=== PATIENT | male | born 1955 | race Caucasian/White ===

== ENCOUNTER 2018-09-10 22:16 | Observation (INO) | payer OTHER ==
[~2018-09-10] VITALS: Ht 177.8 cm; Wt 90.3 kg
[2018-09-10] MEDS ORDERED: VANCOMYCIN 1GM/NS 250 ML 250 ML IV STA (22:28)
[2018-09-10] MEDS ORDERED: LEVOFLOXACIN 750MG/D5W 150ML 150 ML IV STA (22:28)
[2018-09-10] MEDS ORDERED: ONDANSETRON HCL INJ 2 MG/ML VIAL IV STA (22:44)
[2018-09-10] MEDS ORDERED: MORPHINE SULFATE 2 MG/ML SYR IV STA ×2 (22:44→23:24)
--- NOTE | 2018-09-10 22:53 | Diagnostic Imaging Report ---
FINGER RT - HOPD Comparison: None Clinical history: Cut on the right finger Findings: Soft tissue swelling without radiopaque foreign body. Mild MCP and PIP degenerative changes. No acute fracture. Impression: No acute bony abnormality Signed by: Dr Marisela Garcia MD on 09/10/2018 10:49 PM
[2018-09-10] MEDS ORDERED: VANCOMYCIN 1GM/NS 250 ML 250 ML IV SCH (23:15)
[2018-09-10] MEDS ORDERED: LEVOFLOXACIN 500MG/D5W 100ML 100 ML IV SCH (23:15)
--- OUTSIDE RECORDS SUMMARY | 2018-09-11 00:53 | XMS REPORT ---
Author Author [facility] Address Unknown Phone Unavailable Care Team Providers Care Computer Applications Developer Name Role Phone ELADIO MARIN Unavailable Unavailable Problems This patient has no known problems. Allergies, Adverse Reactions, Alerts This patient has no known allergies or adverse reactions. Medications This patient has no known medications. Results Test Description Test Time Test Comments Text Results Atomic Results Result Comments FINGER RT - HOPD 2018-09-10 22:48:00 [place] [address] Patient Name: ANABEL PRESCOTT MR #: [id number] : 1955 Age/Sex: 63/M Req #: [id number] Adm Physician: Ordered by: ELADIO MARIN MD Report #: [id number] Location: [facility] Room/Bed: Procedure: [id number] HOPD/FINGER RT - HOPD Exam Date: 09/10/18 Exam Time: 2234 REPORT STATUS: Signed FINGER RT - HOPD Comparison: None Clinical history: Cut on the right finger Findings: Soft tissue swelling without radiopaque foreign body. Mild MCP and PIP degenerative changes. No acute fracture. Impression: No acute bony abnormality Signed by: Dr Alex Garcia MD on 09/10/2018 10:49 PM Dictated By: ALEX GARCIA MD [id number] Transcribed By: LUIS FELIPE on 09/10/182248 COPY TO: ELADIO MARIN MD
[2018-09-11 01:01] VITALS: BP 160/102
[2018-09-11] MEDS ORDERED: SODIUM CHLORIDE 0.9% 250ML 250 ML ONE ×2 (01:06→23:05)
[2018-09-11 01:42] VITALS: BP 160/102
[2018-09-11] MEDS ORDERED: TYLENOL WITH C1 EACH PO (02:06)
[2018-09-11] MEDS ORDERED: WELCHOL625 MG PO (02:06)
[2018-09-11] MEDS ORDERED: METHOCARBAMOL750 MG PO (02:06)
[2018-09-11] MEDS ORDERED: PROVENTIL HFA6.7 GM INH (02:06)
[2018-09-11] MEDS ORDERED: ZOLPIDEM TARTRAT5 MG PO (02:10)
[2018-09-11] MEDS: MORPHINE SULFATE 2 MG/ML SYR IV PRN ×2 (03:45→08:42)
[2018-09-11 05:11] VITALS: BP 125/75
[2018-09-11 05:14] LABS: BASOPHILS # (AUTO) 0.1 (0.0-0.1); BASOPHILS % 0.5 % (0.0-1.0); EOSINOPHILS # (AUTO) 0.5 (0.0-0.4); EOSINOPHILS % 4.7 % (0.0-6.0); HEMATOCRIT 41.1 % (38.2-49.6); HEMOGLOBIN 13.6 g/dL (14.0-18.0); LYMPHOCYTES # (AUTO) 1.5 (1.0-3.2); LYMPHOCYTES % 15.4 % (18.0-39.1); MEAN CORPUSCULAR HEMOGLOBIN 31.9 pg (28-32); MEAN CORPUSCULAR HGB CONC 33.1 g/dL (31-35); MEAN CORPUSCULAR VOLUME 96.5 fL (81-99); MONOCYTES # (AUTO) 0.9 (0.2-0.8); MONOCYTES % 9.3 % (4.4-11.3); NEUTROPHILS # (AUTO) 6.7 (2.1-6.9); NEUTROPHILS % 69.7 % (38.7-80.0); PLATELET COUNT 231 x10e3/uL (140-360); RED BLOOD COUNT 4.26 x10e6/uL (4.3-5.7); RED CELL DISTRIBUTION WIDTH 13.1 % (11.7-14.4)
[2018-09-11 05:35] LABS: ANION GAP 12.6 mmol/L (8-16); BLOOD UREA NITROGEN 15 mg/dL (7-26); BUN/CREATININE RATIO 19 (6-25); CALCIUM 8.3 mg/dL (8.4-10.2); CARBON DIOXIDE 24 mmol/L (22-29); CHLORIDE 103 mmol/L (98-107); CREATININE, SERUM 0.81 mg/dL (0.72-1.25); EST GLOMERULAR FILTRATION RATE > 60 ML/MIN (60-); GLUCOSE 118 mg/dL (74-118); POTASSIUM 3.6 mmol/L (3.5-5.1); SODIUM 136 mmol/L (136-145)
--- NOTE | 2018-09-11 05:51 | Diagnostic Imaging Report ---
CHEST SINGLE (PORTABLE), 09/11/2018 7:00 AM Technique: CHEST SINGLE (PORTABLE) Comparison: None available. Clinical history: Preoperative for finger cut Findings: Unremarkable portable appearance of the heart, mediastinum, lungs and pleural spaces. Impression: 1. Lines/Tubes: None 2. No acute abnormality. Signed by: Dr Marisela Garcia MD on 09/11/2018 5:48 AM
[2018-09-11 08:18] VITALS: BP 127/71
[2018-09-11] MEDS: ONDANSETRON HCL INJ 2 MG/ML VIAL IV PRN (08:42)
[2018-09-11 11:56] VITALS: BP 129/80
[2018-09-11] MEDS: VANCOMYCIN 1GM/NS 250 ML 250 ML IV SCH (12:49)
[2018-09-11] MEDS ORDERED: IBUPROFEN 600 MG TAB PO PRN (13:15)
[2018-09-11] MEDS ORDERED: ZOLPIDEM TARTRATE 5 MG TAB PO PRN (13:15)
[2018-09-11] MEDS ORDERED: ZOLPIDEM TARTRATE 10 MG TAB PO PRN (14:00)
[2018-09-11] MEDS ORDERED: BUPIVACAINE HCL 0.5% INJ 30 ML VIAL INJ ONE (14:05)
[2018-09-11] MEDS ORDERED: BACITRACIN 50,000 UNIT VIAL ONE (14:05)
--- NOTE | 2018-09-11 14:20 | History and Physical ---
CHIEF COMPLAINT: Swelling and redness of the finger after laceration. HISTORY OF PRESENT ILLNESS: The patient is a 63-year-old man. Three days ago he cut his finger with a pocketknife. It subsequently started to swell and become red. He had subsequent pain and [facility] In the [facility], he received the tetanus booster as well as some antibiotics. He was admitted for possible incision and drainage. PAST MEDICAL HISTORY 1. The patient specifically denies any history of diabetes. 2. History of hyperlipidemia. 3. 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 PAST SURGICAL HISTORY: None. ALLERGIES: PENICILLINS. SOCIAL HISTORY: The patient never smoked. REVIEW OF SYSTEMS: He does not report any fevers. He does note some headache. He has no sore throat or neck pain. He is not having any swollen glands. Cardiac exam reveals regular rate and rhythm with normal S1 and S2. He does not complain of any chest pain. He has no difficulty breathing or cough. He is not having any abdominal pain. He has no leg swelling. PHYSICAL EXAMINATION VITALS: The patient is afebrile. The vital signs are stable, although he did have a temperature of 99.8 last night. HEENT: Examination shows no facial swelling or erythema. The nasal mucosa is normal. The oropharynx is normal. LYMPHATIC: No submandibular, cervical or supraclavicular adenopathy. CARDIOVASCULAR: Regular rate and rhythm with normal S1 and S2. There are no murmurs or rubs. RESPIRATORY: Auscultation of the lungs reveals clear breath sounds bilaterally. There is no wheezing. ABDOMEN: Soft. Nontender. There is no rebound or guarding. EXTREMITIES: Swelling over the dorsal aspect of the 3rd digit on the right hand. NEUROLOGIC: No focal deficits. LABORATORY DATA: The hemoglobin is 13.6, and white blood cell count is 9.6. Platelet count is 231. Electrolytes are within normal limits. IMPRESSION 1. Post-traumatic cellulitis and early abscess formation on the dorsal aspect of the 3rd digit of the right hand with secondary sepsis present on admission. 2. Hyperlipidemia. PLAN 1. Continue vancomycin and Levaquin. 2. Plastic surgery to see patient for possible incision and drainage. 3. Pain control. Job#: [id number]
[2018-09-11] MEDS ORDERED: LIDOCAINE HCL 1% LOCAL INJ 20 ML VIAL ONE (14:45)
--- NOTE | 2018-09-11 14:56 | Consultation ---
DATE OF CONSULTATION: September 11, 2018 This was an emergency consult. The patient was admitted through the emergency room around midnight last night. HISTORY OF PRESENT ILLNESS: The patient is a 63-year-old, [id number] male who states he was using a serrated-type knife approximately 2 days ago. He sustained what he believed was a superficial laceration of the right long finger at the dorsal aspect at the DIP joint. 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 Over the next 24 to 48 hours, the finger became swollen, painful and quite red, and he noticed discharge from the wound. He came to the emergency room late last night where he was admitted and started on intravenous antibiotics, and emergency consult is now requested. PAST MEDICAL HISTORY: Negative for diabetes mellitus. PAST SURGICAL HISTORY: Noncontributory. PHYSICAL EXAMINATION: Vital signs: His temperature is 99.8 and BP 125/75. On pertinent physical exam, the right long finger exhibits fusiform swelling and erythema along the entire ray. There is an open wound on the dorsal aspect of the DIP joint, which is draining purulent exudate. There are erythema and swelling extending to the volar surface. Palpation of the volar flexor tendon sheath is without tenderness, and there is no pain with passive range of motion. IMAGING: Radiographs of the long finger show soft-tissue swelling, but no evidence of osteomyelitis and no radiopaque foreign body. IMPRESSION: Extensor tenosynovitis, possible involvement of the joint. PLAN: The patient will be taken to the OR urgently where exploration of the injured area will be performed and irrigation of the tendon sheath will be done. Cultures will be obtained. ADDENDUM: At the time of this consult, no H and P was on the chart. History was taken by the patient. Job#: [id number]
[2018-09-11] MEDS ORDERED: MUPIROCIN 2% OINT 22 GM TUBE ONE (14:59)
[2018-09-11] MEDS: HYDROCODONE/APAP 7.5MG-325MG 1 EA TAB PO PRN (15:44)
[2018-09-11] MEDS ORDERED: HYDROCODONE/APAP 7.5MG-325MG 1 EA TAB ONE (15:45)
[2018-09-11] MEDS ORDERED: LIDOCAINE HCL 2% LOCAL INJ 5 ML SDV VIAL INJ ONE (16:19)
[2018-09-11] MEDS ORDERED: PROPOFOL IV EMULSION 10 MG/ML 20 ML VIAL ONE (16:19)
[2018-09-11 20:37] VITALS: BP 125/68
[2018-09-11] MEDS ORDERED: MIDAZOLAM HCL 2 MG/2 ML VIAL ONE (21:09)
[2018-09-11] MEDS ORDERED: FENTANYL CITRATE/PF 100MCG/2 ML INJ ONE (21:09)
[2018-09-11] MEDS ORDERED: LEVOFLOXACIN 500MG/D5W 100ML 100 ML IV SCH (23:00)
[2018-09-12] MEDS: VANCOMYCIN 1GM/NS 250 ML 250 ML IV SCH ×2 (00:20→12:20)
[2018-09-12 00:22] VITALS: BP 120/56
[2018-09-12 06:35] VITALS: BP 110/56
[2018-09-12 07:55] VITALS: BP 110/56
[2018-09-12] MEDS: HYDROCODONE/APAP 7.5MG-325MG 1 EA TAB PO PRN (07:55)
[2018-09-12 09:10] VITALS: BP 112/66
[2018-09-12] MEDS ORDERED: HYDROMORPHONE 2MG/ML 2 MG/ML ML IV ONE (11:30)
[2018-09-12] MEDS: ONDANSETRON HCL INJ 2 MG/ML VIAL IV PRN (12:20)
--- NOTE | 2018-09-12 14:35 | Operative Report ---
DATE OF PROCEDURE: September 11, 2018 PREOPERATIVE DIAGNOSES: Penetrating injury right long finger distal interphalangeal joint, presumed extensor tenosynovitis, possible septic arthritis of joint. POSTOPERATIVE DIAGNOSES 1. Septic arthritis of the distal interphalangeal joint. 2. Laceration of extensor tendon, right long finger. PROCEDURES PERFORMED 1. Exploration of penetrating injury, right long finger distal interphalangeal joint. 2. Arthrotomy drainage of distal interphalangeal joint. ANESTHESIA: MAC/local. HISTORY: The patient is a 63-year-old male who was admitted late last night after sustaining a penetrating injury to the right long finger 2 to 3 days prior. The finger has become markedly swollen and erythematous and there is purulent exudate draining from the wound over the DIP joint. The risks, benefits, and alternatives of treatment were discussed with the patient and he is prepared to undergo the procedures outlined. PROCEDURE: The patient was marked preoperatively in the holding area. He is brought to the operating theater and after the induction of adequate IV sedation, he is prepped and draped in a supine position. A time-out is performed. The right long finger has a digital block placed using a 50:50 mixture of 1% Xylocaine plain and 0.5% Marcaine plain. A total of 5 mL is used around the base of the finger. The finger is then elevated for 3 to 4 minutes and then a 1/4-inch Priyanka drain is placed around the base of the long finger and held in place with a hemostat. A curvilinear incision is then marked out over the DIP joint. The incision is made through the skin and subcutaneous tissues. Venous tributaries are controlled with bipolar cautery. The purulence is then cultured, both aerobically and anaerobically. The extensor tendon mechanism is clearly divided from the injury and this is dissected off the periosteal tissues away from the DIP joint. The DIP joint is placed on traction and the purulence is noted. The wound is irrigated with antibiotic containing solution until the effluent is clear. At this point, 1/4-inch packing is placed within the DIP joint. No attempt is made to repair the extensor tendon at this point because of the presence of the infection. The edges of the soft tissues are then sharply debrided and closed over the packing with 5-0 nylon suture in an interrupted fashion. Bactroban ointment and Xeroform gauze are placed directly over the wound. A sterile dressing is applied and a foam aluminum splint is added to maintain the joint in extension and held in place with Coban dressing. The tourniquet is removed from the base of the finger. The finger pinks up nicely and the patient is returned to recovery room in satisfactory condition. Job#: [id number] SUB
--- NOTE | 2018-09-12 17:35 | Discharge Summary ---
DISCHARGE DIAGNOSES 1. Posttraumatic cellulitis and early abscess formation of the dorsal aspect of the 3rd digit of the right hand. 2. Hyperlipidemia. CONSULTING PHYSICIAN: Dr. Jonny Colorado. PROCEDURE: Incision and drainage of abscess. HISTORY OF PRESENT ILLNESS: The patient is a 63-year-old man. He lacerated his finger several days prior to admission. It became subsequently more painful and red. He developed a small area of fluctuance. He went to the emergency department and was admitted. HOSPITAL COURSE: The patient was admitted. He was started on IV antibiotics. He was seen in consultation by plastic surgery. He had an incision and drainage done. He tolerated the procedure well and felt better. He was eager to go home after the procedure. DISPOSITION: Patient will be discharged home with Augmentin. He will follow up with Dr. Colorado in 7 to 10 days. JOSE BENJAMIN MD Job#: [id number] PKU
== END 2018-09-12 13:37 | disposition home or self-care (01) ==
LOC: FSED 22:16 → ERHOLD 23:17 → INTOOBSV 23:17 → MED/SURG2 09-11 00:57
PROVIDERS: ADMIT Internal Medicine; ATTEND Internal Medicine
DX: S66.322A Laceration of extensor muscle, fascia and tendon of right middle finger at wrist and hand level, initial encounter (principal); M00.9 Pyogenic arthritis, unspecified; E78.5 Hyperlipidemia, unspecified; L03.113 Cellulitis of right upper limb; W26.0XXA Contact with knife, initial encounter; Y93.89 Activity, other specified; Z88.0 Allergy status to penicillin; Z88.8 Allergy status to other drugs, medicaments and biological substances; J45.909 Unspecified asthma, uncomplicated; L02.511 Cutaneous abscess of right hand
CPT/HCPCS: 26080; 36415; 71045; 73140; 80048; 85025; 85730; 87040; 87071; 87075; 87205; 93005; 99284; G0378 ×3; J1170; J1956; J2001 ×2; J2250; J2270; J2405 ×2; J2704; J3370 ×2; J7050

== ENCOUNTER 2020-03-20 17:02 | Emergency (ER) | payer MEDICARE, OTHER ==
[~2020-03-20] VITALS: Ht 177.8 cm; Wt 91.0 kg
[~2020-03-20 17:02] MED LIST: METHOCARBAMOL750 MG PO; PROVENTIL HFA6.7 GM INH; TYLENOL WITH C1 EACH PO; WELCHOL625 MG PO; ZOLPIDEM TARTRAT5 MG PO
[2020-03-20] MEDS ORDERED: LIDOCAINE HCL 2% LOCAL 20 ML VIAL ONE (18:02)
[2020-03-20] MEDS ORDERED: TETANUS/DIPHTHERIA TOX ADULT 0.5 ML SYR IM ONE (18:30)
[2020-03-20] MEDS ORDERED: TETANUS/DIPHTHERIA TOX ADULT 0.5 ML SYR ONE (18:39)
--- NOTE | 2020-03-20 18:55 | Diagnostic Imaging Report ---
Exam: Left finger, 3 views History: Laceration to tip of left second digit Comparison: None. Findings: There is normal bone mineralization. Deformity in the ulnar aspect of the distal portion of the second finger tuft, with adjacent 2 mm bony fragment, likely represents a small fracture. Other bony structures are intact. Joint spaces preserved. No abnormal soft tissue calcification. Soft tissue defect in the distal portion of the second finger, consistent with known laceration. Associated soft tissue swelling. Impression: 1. Small acute fracture in the ulnar aspect of the distal portion of the second finger tuft with adjacent 2 mm bony fragment. Associated soft tissue defect in the distal portion of the second finger. Signed by: Dr. Shun Beltran M.D. on 03/20/2020 6:51 PM
[2020-03-20] MEDS ORDERED: CEFAZOLIN SOD 1 GM VIAL IM STA (19:03)
[2020-03-20] MEDS ORDERED: TRIMETHOPRIM/SULFAMETHOXAZOLE 160-800 MG TAB PO STA (19:03)
--- NOTE | 2020-03-20 20:12 | Emergency Department Note ---
History of Present Illnes History of Present Illness Chief Complaint: table saw Laceration left index finger History of Present Illness This is a 64 year old male . Historian: Patient Arrival Mode: Car History limited by: condition of the patient (stable) Seo Strategist Required: No Location: left index finger tip Quality: sharp Radiation: Reports non-radiation Severity: moderate Onset quality: sudden Duration (how long): hour(s) (2) Timing of current episode: constant Progression: unchanged Chronicity: new Context: Reports trauma/injury; Denies recent illness, Denies recent surgery, Denies recent immobilization, Denies recent travel, Denies new medications Relieving factors: rest Exacerbating factors: movement Associated symptoms: Reports denies other symptoms Treatments prior to arrival: none Past Medical/Family History Physician Review I have reviewed the patient's past medical and family history. Any updates have been documented here. Past Medical History Recent Fever: No Clinical Suspicion of Infectio: No New/Unexplained Change in Ment: No Past Medical History: Asthma, Hyperlipedemia Other Medical History: ARTHRITIS Past Surgical History: Hernia Repair Social History Smoking Cessation: Never Smoker Counseling Performed: No Alcohol Use: Social Any Illegal Drug Use: No TB Exposure/Symptoms: No Physically hurt or threatened: No Family History Family history of heart diseas: No Other Last Tetanus: 2018 Any Pre-Existing Lines (PICC,: No Is patient up to date on immun: Yes Last Flu: UTD Last Pneumovax: UTD Review of Systems Review of Systems Constitutional: Reports no symptoms EENTM: Reports no symptoms Cardiovascular: Reports no symptoms Respiratory: Reports no symptoms Gastrointestinal: Reports no symptoms Genitourinary: Reports no symptoms Musculoskeletal: Reports as per HPI Integumentary: Reports as per HPI Neurological: Reports no symptoms Psychological: Reports no symptoms Endocrine: Reports no symptoms Hematological/Lymphatic: Reports no symptoms Review of other systems: All other systems negative Physical Exam Related Data Allergies: Coded Allergies: Penicillins (Verified Allergy, Unknown, 09/10/18) A CHILD Uncoded Allergies: AVALAIR (Allergy, Unknown, 09/10/18) A CHILD QUALUDE (Allergy, Unknown, 09/10/18) A CHILD Triage Vital Signs Vital Signs Date Time Temp Pulse Resp B/P (MAP) Pulse Ox O2 Delivery O2 Flow Rate FiO2 03/20/20 17:30 98.9 70 16 151/84 99 Vital signs reviewed: Yes Physical Exam CONSTITUTIONAL Constitutional: Present well-developed, Present well-nourished HENT HENT: Present normocephalic, Present atraumatic, Present oropharynx clear/moist, Present nose normal HENT L/R: Present left ext ear normal, Present right ext ear normal EYES Eyes: Reports PERRL, Reports conjunctivae normal NECK Neck: Present ROM normal PULMONARY Pulmonary: Present effort normal, Present breath sounds normal CARDIOVASCULAR Cardiovascular: Present regular rhythm, Present heart sounds normal, Present capillary refill normal, Present normal rate GASTROINTESTINAL Abdominal: Present soft, Present nontender, Present bowel sounds normal GENITOURINARY Genitourinary: Present exam deferred SKIN Skin: Present warm, Present dry, Present other (left index finger 1.5 cm along mid long axis through nail bed// +nvi) MUSCULOSKELETAL Musculoskeletal: Present ROM normal NEUROLOGICAL Neurological: Present alert, Present oriented x 3, Present no gross motor or sensory deficits PSYCHOLOGICAL Psychological: Present mood/affect normal, Present judgement normal Assessment & Plan Medical Decision Making MDM f/u with hand surgeon tomorrow morning ( dr ruelas- [facility]- [phone] lizy cruz- hand surgeon call [phone]), bactrim, ibuprofen, tramadol Reassessment Reassessment wound was irrigated well. soaked in betadine solution for 30 mins and hydrogen peroxide for 10 minutes. . xeroform ans dressing was placed on wound. spoke to dr cruz - hand surgeon- at 2005hrs approx and he said he would f/u with pt tomorrow. spoke to dr ruelas- hand surgeon [facility]- at 2010hrs and he said for pt to follow up with him tomorrow. pt said he will f/u with [facility] hand surgeon Assessment & Plan Final Impression: (1) Open fracture of tuft of distal phalanx of finger Depart Disposition: HOME, SELF-CARE Last Vital Signs Date Time Temp Pulse Resp B/P (MAP) Pulse Ox O2 Delivery O2 Flow Rate FiO2 03/20/20 17:30 98.9 70 16 151/84 99 Home Meds Active Scripts Sulfamethoxazole/Trimethoprim (BACTRIM DS TABLET) 1 Each Tablet, 1 TAB PO Q12H for 14 Days, #28 TAB Prov:MICHELLE KERN 03/20/20 Tramadol Hcl (ULTRAM) 50 Mg Tablet, 50 MG PO Q4HR PRN for MODERATE PAIN (4-6), #30 TAB take after ibuprofen to control pain if need be Prov:KERNJOANNEYola GUEVARA 03/20/20 Ibuprofen (IBUPROFEN) 600 Mg Tablet, 800 MG PO Q6H PRN for MODERATE PAIN (4-6), #40 TAB Prov:ERLINDAPHNEMICHELLEQI GUEVARA 03/20/20 Reported Medications Zolpidem Tartrate (ZOLPIDEM TARTRATE) 5 Mg Tablet, 5 MG PO HS PRN for INSOMNIA, #30 TAB 09/11/18 Albuterol Sulfate (PROVENTIL HFA) 6.7 Gm Hfa.aer.ad, 1 DOSE INH PRN 09/11/18 Colesevelam Hcl (WELCHOL) 625 Mg Tablet, 625 MG PO AC, #30 TAB Take 2 tabs with meals 09/11/18 Acetaminophen With Codeine (TYLENOL WITH CODEINE #3 TABLET) 1 Each Tablet, 300 MG PO Q6H PRN for PAIN, TAB 09/11/18 Methocarbamol (METHOCARBAMOL) 750 Mg Tablet, 750 MG PO Q6H, #30 TAB 09/11/18 Medications in the ED Lidocaine HCl 400 mg STK-MED ONCE .ROUTE ; Start 03/20/20 at 18:02; Stop 03/20/20 at 17:59; Status DC Tetanus/ Diphtheria Toxoids 0.5 ml ONCE ONCE IM Last administered on 03/20/20at 18:34; Admin Dose 0.5 ML; Start 03/20/20 at 18:30; Stop 03/20/20 at 18:31; Status DC Tetanus/ Diphtheria Toxoids 0.5 ml STK-MED ONCE .ROUTE ; Start 03/20/20 at 18:39; Stop 03/20/20 at 18:34; Status DC Cefazolin Sodium 1 gm ONCE STAT IM Last administered on 03/20/20at 19:30; Admin Dose 1 GM; Start 03/20/20 at 19:03; Stop 03/20/20 at 19:47; Status DC Trimethoprim/ Sulfamethoxazole 1 ea ONCE STAT PO Last administered on 03/20/20at 19:30; Admin Dose 1 EA; Start 03/20/20 at 19:03; Stop 03/20/20 at 19:44; Status DC MICHELLE KERN Mar 20, 2020 20:12
[2020-03-20] MEDS ORDERED: ULTRAM50 MG PO (20:29)
[2020-03-20] MEDS ORDERED: IBUPROFEN600 MG PO (20:29)
[2020-03-20] MEDS ORDERED: BACTRIM DS TAB1 EACH PO (20:29)
== END 2020-03-20 20:42 | disposition home or self-care (01) ==
LOC: FSED 17:02
DX: S62.631B Displaced fracture of distal phalanx of left index finger, initial encounter for open fracture (principal); W29.3XXA Contact with powered garden and outdoor hand tools and machinery, initial encounter; Y92.008 Other place in unspecified non-institutional (private) residence as the place of occurrence of the external cause; E78.5 Hyperlipidemia, unspecified; J45.909 Unspecified asthma, uncomplicated
CPT/HCPCS: 73140; 90471; 90714; 96372; 99283; J0690; J2001

== ENCOUNTER 2020-10-03 13:40 | Emergency (ER) | payer MEDICARE ==
[~2020-10-03] VITALS: Ht 177.8 cm; Wt 90.7 kg
[~2020-10-03 13:40] MED LIST changes: +BACTRIM DS TAB1 EACH PO; +IBUPROFEN600 MG PO; +ULTRAM50 MG PO
[2020-10-03 15:06] VITALS: BP 110/68
== END 2020-10-03 15:08 | disposition home or self-care (01) ==
LOC: ER 14:32
DX: U07.1 COVID-19 (principal); J45.909 Unspecified asthma, uncomplicated; E78.5 Hyperlipidemia, unspecified; Z88.0 Allergy status to penicillin; Z88.8 Allergy status to other drugs, medicaments and biological substances
CPT/HCPCS: 71045; 99283

== ENCOUNTER 2020-10-04 16:31 | Inpatient (IN) | payer MEDICARE ==
[~2020-10-04] VITALS: Ht 177.8 cm; Wt 82.6 kg
[~2020-10-04 16:31] MED LIST changes: +ETOMIDATE 2 MG/ML 10 ML INJ IV ONE; +MIDAZOLAM HCL 2 MG/2 ML VIAL ONE; +SUCCINYLCHOLINE CHLORIDE 20 MG/ML 10ML VIAL ONE; +VECURONIUM BROMIDE FOR INJ 20 MG VIAL ONE; +WATER STERILE 10 ML VIAL ONE
[2020-10-04] MEDS ORDERED: AZITHROMYCIN 500MG/NS 250 ML 250 ML IV ONE (18:45)
[2020-10-04] MEDS ORDERED: DEXAMETHASONE SOD PHOS INJ 4 MG/ML VIAL IV ONE (19:20)
[2020-10-04 19:30] LABS: CLARITY,URINE SL CLOUDY (CLEAR); COLOR,URINE STRAW (YELLOW); KETONES,URINE 2+ (NEGATIVE); LEUKOCYTE ESTERASE ,URINE NEGATIVE (NEGATIVE); NITRITE,URINE NEGATIVE (NEGATIVE); PROTEIN,URINE DIPSTICK 1+ (NEGATIVE); URINE UROBILINOGEN 0.2 mg/dL (0.2 - 1)
[2020-10-04 19:39] LABS: BASOPHILS % 0.1 % (0.0-1.0); HEMATOCRIT 36.7 % (38.2-49.6); HEMOGLOBIN 12.4 g/dL (14.0-18.0); LYMPHOCYTES # (AUTO) 0.7 (1.0-3.2); LYMPHOCYTES % 8.9 % (18.0-39.1); MEAN CORPUSCULAR HEMOGLOBIN 31.4 pg (28-32); MEAN CORPUSCULAR HGB CONC 33.8 g/dL (31-35); MEAN CORPUSCULAR VOLUME 92.9 fL (81-99); MONOCYTES # (AUTO) 0.4 (0.2-0.8); MONOCYTES % 4.9 % (4.4-11.3); NEUTROPHILS # (AUTO) 6.3 (2.1-6.9); NEUTROPHILS % 85.4 % (38.7-80.0); PLATELET COUNT 212 x10e3/uL (140-360); RED BLOOD COUNT 3.95 x10e6/uL (4.3-5.7); RED CELL DISTRIBUTION WIDTH 13.8 % (11.7-14.4)
[2020-10-04 19:43] LABS: BACTERIA,URINE RARE /HPF; EPITHELIAL CELLS,URINE RARE /LPF; MUCUS,URINE FEW (RARE); RBC,URINE 0-5 /HPF (0-5); WBC,URINE (MAN) 0-5 /HPF (0-5)
[2020-10-04] MEDS ORDERED: CEFTRIAXONE SOD 1 GM/NS 50 ML 50 ML IV ONE (19:45)
[2020-10-04 19:56] LABS: ALANINE AMINOTRANSFERASE 20 IU/L (0-55); ALBUMIN 2.8 g/dL (3.5-5.0); ALBUMIN/GLOBULIN RATIO 0.7 (0.8-2.0); ALKALINE PHOSPHATASE 58 IU/L (40-150); ANION GAP 16.5 mmol/L (8-16); BLOOD UREA NITROGEN 16 mg/dL (7-26); BUN/CREATININE RATIO 24 (6-25); CALCIUM 8.3 mg/dL (8.4-10.2); CARBON DIOXIDE 23 mmol/L (22-29); CHLORIDE 101 mmol/L (98-107); CREATININE, SERUM 0.67 mg/dL (0.72-1.25); EST GLOMERULAR FILTRATION RATE > 60 ML/MIN (60-); GLUCOSE 107 mg/dL (74-118); POTASSIUM 3.5 mmol/L (3.5-5.1); SODIUM 137 mmol/L (136-145)
[2020-10-04] MEDS ORDERED: ACETAMINOPHEN 325 MG TAB ONE (19:58)
[2020-10-04] MEDS ORDERED: ACETAMINOPHEN 325 MG TAB PO ONE (20:00)
[2020-10-04] MEDS ORDERED: ONDANSETRON HCL INJ 2MG/ML 2ML 2 MG/ML VIAL IV PRN ×2 (20:30→21:15)
[2020-10-04] MEDS ORDERED: SODIUM CHLORIDE 0.9% 1000ML 1,000 ML IV ONE (20:30)
[2020-10-04] MEDS ORDERED: ACETAMINOPHEN 325 MG TAB PO PRN (21:15)
[2020-10-04] MEDS ORDERED: TRAMADOL HCL 50 MG TAB PO PRN (21:15)
[2020-10-04] MEDS: ASCORBIC ACID 500 MG TAB PO SCH (22:36)
[2020-10-04] MEDS: ENOXAPARIN SOD INJ 40 MG/0.4 ML SYR SC SCH (22:36)
[2020-10-05] MEDS: ALBUTEROL SULFATE HFA 8GM INHALATION AEROSOL INH SCH ×3 (00:28→21:21)
[2020-10-05] MEDS: BENZONATATE 100 MG CAP PO PRN (00:29)
[2020-10-05] MEDS ORDERED: BENZONATATE 100 MG CAP ONE (00:30)
[2020-10-05] MEDS: ACETAMINOPHEN 325 MG TAB PO PRN ×2 (02:10→15:28)
[2020-10-05] MEDS ORDERED: ROSUVASTATIN CA20 MG PO (05:09)
[2020-10-05] MEDS ORDERED: MONTELUKAST SOD10 MG PO (05:09)
[2020-10-05] MEDS ORDERED: SYMBICORT 16010.2 GM (05:09)
[2020-10-05] MEDS: ASCORBIC ACID 500 MG TAB PO SCH ×2 (08:42→17:35)
[2020-10-05] MEDS: ENOXAPARIN SOD INJ 40 MG/0.4 ML SYR SC SCH ×2 (08:42→17:35)
[2020-10-05] MEDS: ZINC SULFATE 220 MG CAP PO SCH (08:42)
[2020-10-05] MEDS ORDERED: AZITHROMYCIN 500MG/NS 250 ML 250 ML IV SCH (09:00)
[2020-10-05] MEDS ORDERED: CEFTRIAXONE SOD 2 GM/NS 100 ML 100 ML IV SCH (09:00)
[2020-10-05 09:14] LABS: BASOPHILS % 0.2 % (0.0-1.0); HEMATOCRIT 36.8 % (38.2-49.6); HEMOGLOBIN 12.1 g/dL (14.0-18.0); LYMPHOCYTES # (AUTO) 0.5 (1.0-3.2); LYMPHOCYTES % 7.4 % (18.0-39.1); MEAN CORPUSCULAR HEMOGLOBIN 30.9 pg (28-32); MEAN CORPUSCULAR HGB CONC 32.9 g/dL (31-35); MEAN CORPUSCULAR VOLUME 94.1 fL (81-99); MONOCYTES # (AUTO) 0.2 (0.2-0.8); MONOCYTES % 3.5 % (4.4-11.3); NEUTROPHILS # (AUTO) 5.6 (2.1-6.9); NEUTROPHILS % 88.3 % (38.7-80.0); PLATELET COUNT 218 x10e3/uL (140-360); RED BLOOD COUNT 3.91 x10e6/uL (4.3-5.7); RED CELL DISTRIBUTION WIDTH 13.9 % (11.7-14.4)
[2020-10-05 09:33] LABS: ALANINE AMINOTRANSFERASE 21 IU/L (0-55); ALBUMIN 2.6 g/dL (3.5-5.0); ALBUMIN/GLOBULIN RATIO 0.7 (0.8-2.0); ALKALINE PHOSPHATASE 69 IU/L (40-150); ANION GAP 14.8 mmol/L (8-16); BLOOD UREA NITROGEN 13 mg/dL (7-26); BUN/CREATININE RATIO 19 (6-25); CALCIUM 8.1 mg/dL (8.4-10.2); CARBON DIOXIDE 24 mmol/L (22-29); CHLORIDE 104 mmol/L (98-107); CREATININE, SERUM 0.68 mg/dL (0.72-1.25); EST GLOMERULAR FILTRATION RATE > 60 ML/MIN (60-); GLUCOSE 146 mg/dL (74-118); POTASSIUM 3.8 mmol/L (3.5-5.1); SODIUM 139 mmol/L (136-145)
[2020-10-05 10:42] LABS: LYMPHOCYTES % (MANUAL) 9 % (19-48); MONOCYTES % (MANUAL) 2 % (3.4-9.0); NEUTROPHILS % (MANUAL) 89 % (40-74); PLATELET ESTIMATE ADEQUATE; PLATELET MORPHOLOGY COMMENT NORMAL; RBC MORPHOLOGY COMMENT NORMAL
[2020-10-05] MEDS ORDERED: REMDESIVIR 200MG/NS 100ML 200 MG IV ONE (15:00)
[2020-10-06] MEDS: ALBUTEROL SULFATE HFA 8GM INHALATION AEROSOL INH SCH ×9 (03:00→23:54)
[2020-10-06] MEDS: ACETAMINOPHEN 325 MG TAB PO PRN (03:04)
[2020-10-06 06:49] LABS: BASOPHILS % 0.3 % (0.0-1.0); HEMATOCRIT 36.8 % (38.2-49.6); HEMOGLOBIN 11.9 g/dL (14.0-18.0); LYMPHOCYTES # (AUTO) 0.9 (1.0-3.2); LYMPHOCYTES % 8.6 % (18.0-39.1); MEAN CORPUSCULAR HEMOGLOBIN 31.6 pg (28-32); MEAN CORPUSCULAR HGB CONC 32.3 g/dL (31-35); MEAN CORPUSCULAR VOLUME 97.6 fL (81-99); MONOCYTES # (AUTO) 0.5 (0.2-0.8); MONOCYTES % 4.7 % (4.4-11.3); NEUTROPHILS # (AUTO) 8.8 (2.1-6.9); NEUTROPHILS % 85.6 % (38.7-80.0); PLATELET COUNT 219 x10e3/uL (140-360); RED BLOOD COUNT 3.77 x10e6/uL (4.3-5.7); RED CELL DISTRIBUTION WIDTH 14.3 % (11.7-14.4)
[2020-10-06 07:22] LABS: ALANINE AMINOTRANSFERASE 18 IU/L (0-55); ALBUMIN 2.4 g/dL (3.5-5.0); ALBUMIN/GLOBULIN RATIO 0.6 (0.8-2.0); ALKALINE PHOSPHATASE 73 IU/L (40-150); ANION GAP 12.7 mmol/L (8-16); BLOOD UREA NITROGEN 22 mg/dL (7-26); BUN/CREATININE RATIO 33 (6-25); CALCIUM 7.9 mg/dL (8.4-10.2); CARBON DIOXIDE 24 mmol/L (22-29); CHLORIDE 104 mmol/L (98-107); CREATININE, SERUM 0.66 mg/dL (0.72-1.25); EST GLOMERULAR FILTRATION RATE > 60 ML/MIN (60-); GLUCOSE 107 mg/dL (74-118); POTASSIUM 3.7 mmol/L (3.5-5.1); SODIUM 137 mmol/L (136-145)
[2020-10-06] MEDS: ASCORBIC ACID 500 MG TAB PO SCH ×2 (09:00→16:42)
[2020-10-06] MEDS: AZITHROMYCIN 500MG/NS 250 ML 250 ML IV SCH (09:00)
[2020-10-06] MEDS: ENOXAPARIN SOD INJ 40 MG/0.4 ML SYR SC SCH ×2 (09:00→16:42)
[2020-10-06] MEDS: ZINC SULFATE 220 MG CAP PO SCH (09:00)
[2020-10-06] MEDS: DEXAMETHASONE SOD PHOS 10 MG/1 ML VIAL IV SCH (10:13)
[2020-10-06] MEDS: CEFTRIAXONE SOD 2 GM/NS 100 ML 100 ML IV SCH (11:21)
[2020-10-06] MEDS: REMDESIVIR 100MG/NS 100ML 100 MG IV SCH (16:42)
[2020-10-06 22:30] VITALS: BP 130/80
[2020-10-06 23:00] VITALS: BP 131/78
[2020-10-06] MEDS: BENZONATATE 100 MG CAP PO PRN (23:00)
[2020-10-07] VITALS (17 sets, daily range): BP systolic 85–125; BP diastolic 44–75
[2020-10-07] MEDS: ALBUTEROL SULFATE HFA 8GM INHALATION AEROSOL INH SCH ×7 (03:38→23:14)
[2020-10-07 05:55] LABS: BASOPHILS % 0.2 % (0.0-1.0); HEMATOCRIT 35.7 % (38.2-49.6); HEMOGLOBIN 11.8 g/dL (14.0-18.0); LYMPHOCYTES # (AUTO) 0.7 (1.0-3.2); LYMPHOCYTES % 6.2 % (18.0-39.1); MEAN CORPUSCULAR HEMOGLOBIN 31.4 pg (28-32); MEAN CORPUSCULAR HGB CONC 33.1 g/dL (31-35); MEAN CORPUSCULAR VOLUME 94.9 fL (81-99); MONOCYTES # (AUTO) 0.6 (0.2-0.8); MONOCYTES % 5.1 % (4.4-11.3); NEUTROPHILS # (AUTO) 10.2 (2.1-6.9); NEUTROPHILS % 87.3 % (38.7-80.0); PLATELET COUNT 174 x10e3/uL (140-360); RED BLOOD COUNT 3.76 x10e6/uL (4.3-5.7); RED CELL DISTRIBUTION WIDTH 13.9 % (11.7-14.4)
[2020-10-07 06:23] LABS: ALANINE AMINOTRANSFERASE 20 IU/L (0-55); ALBUMIN 2.4 g/dL (3.5-5.0); ALBUMIN/GLOBULIN RATIO 0.6 (0.8-2.0); ALKALINE PHOSPHATASE 98 IU/L (40-150); ANION GAP 12.8 mmol/L (8-16); BLOOD UREA NITROGEN 19 mg/dL (7-26); BUN/CREATININE RATIO 30 (6-25); CALCIUM 8.1 mg/dL (8.4-10.2); CARBON DIOXIDE 26 mmol/L (22-29); CHLORIDE 102 mmol/L (98-107); CREATININE, SERUM 0.63 mg/dL (0.72-1.25); EST GLOMERULAR FILTRATION RATE > 60 ML/MIN (60-); GLUCOSE 125 mg/dL (74-118); POTASSIUM 3.8 mmol/L (3.5-5.1); SODIUM 137 mmol/L (136-145)
[2020-10-07] MEDS: ZINC SULFATE 220 MG CAP PO SCH (07:58)
[2020-10-07] MEDS: ASCORBIC ACID 500 MG TAB PO SCH ×2 (07:58→15:36)
[2020-10-07] MEDS: AZITHROMYCIN 500MG/NS 250 ML 250 ML IV SCH (07:58)
[2020-10-07] MEDS: ENOXAPARIN SOD INJ 40 MG/0.4 ML SYR SC SCH (07:58)
[2020-10-07] MEDS: DEXAMETHASONE SOD PHOS 10 MG/1 ML VIAL IV SCH (07:58)
[2020-10-07] MEDS ORDERED: DEXMEDETOMIDINE 200MCG/NS 50ML 50 ML IV ONE (09:53)
[2020-10-07] MEDS ORDERED: DEXMEDETOMIDINE 200MCG/NS 50ML 50 ML IV PRN (10:00)
[2020-10-07] MEDS: CEFTRIAXONE SOD 2 GM/NS 100 ML 100 ML IV SCH (15:36)
[2020-10-07] MEDS: REMDESIVIR 100MG/NS 100ML 100 MG IV SCH (15:36)
[2020-10-08] VITALS (15 sets, daily range): BP systolic 82–127; BP diastolic 34–75
[2020-10-08] MEDS ORDERED: SODIUM CHLORIDE 0.9% 100 ML ONE (00:03)
[2020-10-08] MEDS: DEXMEDETOMIDINE 200MCG/NS 50ML 50 ML IV PRN ×3 (00:06→14:15)
[2020-10-08] MEDS: ALBUTEROL SULFATE HFA 8GM INHALATION AEROSOL INH SCH ×6 (03:09→22:46)
[2020-10-08 05:42] LABS: BASOPHILS % 0.2 % (0.0-1.0); HEMOGLOBIN 12.1 g/dL (14.0-18.0); LYMPHOCYTES # (AUTO) 0.8 (1.0-3.2); LYMPHOCYTES % 5.4 % (18.0-39.1); MEAN CORPUSCULAR HEMOGLOBIN 30.9 pg (28-32); MEAN CORPUSCULAR HGB CONC 32.7 g/dL (31-35); MEAN CORPUSCULAR VOLUME 94.4 fL (81-99); MONOCYTES # (AUTO) 0.5 (0.2-0.8); MONOCYTES % 3.2 % (4.4-11.3); NEUTROPHILS # (AUTO) 13.7 (2.1-6.9); NEUTROPHILS % 89.8 % (38.7-80.0); PLATELET COUNT 108 x10e3/uL (140-360); RED BLOOD COUNT 3.92 x10e6/uL (4.3-5.7); RED CELL DISTRIBUTION WIDTH 13.8 % (11.7-14.4)
[2020-10-08] MEDS: ACETAMINOPHEN 325 MG TAB PO PRN ×2 (05:51→14:06)
[2020-10-08 06:18] LABS: ALANINE AMINOTRANSFERASE 23 IU/L (0-55); ALBUMIN 2.5 g/dL (3.5-5.0); ALBUMIN/GLOBULIN RATIO 0.7 (0.8-2.0); ALKALINE PHOSPHATASE 136 IU/L (40-150); BLOOD UREA NITROGEN 26 mg/dL (7-26); BUN/CREATININE RATIO 35 (6-25); CALCIUM 7.8 mg/dL (8.4-10.2); CARBON DIOXIDE 25 mmol/L (22-29); CHLORIDE 101 mmol/L (98-107); CREATININE, SERUM 0.74 mg/dL (0.72-1.25); EST GLOMERULAR FILTRATION RATE > 60 ML/MIN (60-); GLUCOSE 122 mg/dL (74-118); SODIUM 138 mmol/L (136-145)
[2020-10-08] MEDS: AZITHROMYCIN 500MG/NS 250 ML 250 ML IV SCH (08:06)
[2020-10-08] MEDS: DEXAMETHASONE SOD PHOS 10 MG/1 ML VIAL IV SCH (08:06)
[2020-10-08] MEDS: ZINC SULFATE 220 MG CAP PO SCH (09:00)
[2020-10-08] MEDS ORDERED: ENOXAPARIN SOD INJ 40 MG/0.4 ML SYR SC SCH (09:00)
[2020-10-08] MEDS: ASCORBIC ACID 500 MG TAB PO SCH ×2 (09:00→16:06)
[2020-10-08] MEDS: CEFTRIAXONE SOD 2 GM/NS 100 ML 100 ML IV SCH (11:42)
[2020-10-08] MEDS: REMDESIVIR 100MG/NS 100ML 100 MG IV SCH (14:06)
[2020-10-08] MEDS: IBUPROFEN 400 MG TAB PO PRN (16:06)
[2020-10-08] MEDS ORDERED: MIDAZOLAM HCL 5MG/ML 10ML VIAL 100 ML IV ONE (18:39)
[2020-10-08] MEDS ORDERED: FENTANYL 2000MCG/NS 250 250 ML ONE (18:39)
[2020-10-08] MEDS: MIDAZOLAM HCL 50 MG in SODIUM CHLORIDE 0.9% 100 ML 90 ML IV PRN (18:46)
[2020-10-08] MEDS: FENTANYL CITRATE INJ 2,000 MCG in SODIUM CHLORIDE 0.9% 250ML 210 ML IV PRN (18:47)
[2020-10-08] MEDS ORDERED: SODIUM CHLORIDE 0.9% 1000ML 1,000 ML ONE (18:50)
[2020-10-08] MEDS ORDERED: SODIUM CHLORIDE 0.9% 500ML 500 ML ONE ×2 (19:33→19:53)
[2020-10-08] MEDS ORDERED: NOREPINEPHRINE 8 MG/D5W 250 ML 250 ML ONE (19:54)
[2020-10-08] MEDS ORDERED: SODIUM CHLORIDE 0.9% 1000ML 500 ML IV STA ×2 (20:12)
[2020-10-08 20:13] LABS: ABG HCO3 28 mmol/L (22-26); ABG PCO2 50 mmHg (35-45); ABG PH 7.36 (7.35-7.45); ABG PO2 81 mmHg (80-105); ABG TCO2 30
[2020-10-08] MEDS ORDERED: ROCURONIUM BROMIDE 1,250 MG in SODIUM CHLORIDE 0.9% 250ML 125 ML IV PRN (20:15)
[2020-10-08] MEDS: NOREPINEPHRINE INJ 4MG/4ML 8 MG in DEXTROSE 5% 250ML 250 ML IV PRN (21:10)
[2020-10-09] VITALS (28 sets, daily range): BP systolic 96–121; BP diastolic 51–61
[2020-10-09] MEDS ORDERED: MIDAZOLAM HCL 5MG/ML 10ML VIAL 100 ML IV ONE (00:13)
[2020-10-09] MEDS: MIDAZOLAM HCL 50 MG in SODIUM CHLORIDE 0.9% 100 ML 90 ML IV PRN (00:21)
[2020-10-09] MEDS: ALBUTEROL SULFATE HFA 8GM INHALATION AEROSOL INH SCH ×5 (03:09→19:40)
[2020-10-09] MEDS ORDERED: FENTANYL 2000MCG/NS 250 250 ML ONE (03:42)
[2020-10-09] MEDS: FENTANYL CITRATE INJ 2,000 MCG in SODIUM CHLORIDE 0.9% 250ML 210 ML IV PRN (04:00)
[2020-10-09 04:59] LABS: BASOPHILS % 0.2 % (0.0-1.0); EOSINOPHILS % 0.1 % (0.0-6.0); HEMATOCRIT 35.6 % (38.2-49.6); HEMOGLOBIN 11.4 g/dL (14.0-18.0); LYMPHOCYTES # (AUTO) 1.2 (1.0-3.2); LYMPHOCYTES % 6.7 % (18.0-39.1); MEAN CORPUSCULAR HEMOGLOBIN 30.8 pg (28-32); MEAN CORPUSCULAR VOLUME 96.2 fL (81-99); MONOCYTES # (AUTO) 0.6 (0.2-0.8); MONOCYTES % 3.6 % (4.4-11.3); NEUTROPHILS # (AUTO) 14.9 (2.1-6.9); NEUTROPHILS % 87.2 % (38.7-80.0); PLATELET COUNT 87 x10e3/uL (140-360); RED CELL DISTRIBUTION WIDTH 14.3 % (11.7-14.4)
[2020-10-09 05:18] LABS: INR 1.71; PROTHROMBIN TIME 21.3 seconds (11.9-14.5)
[2020-10-09 05:29] LABS: ALANINE AMINOTRANSFERASE 40 IU/L (0-55); ALBUMIN 2.1 g/dL (3.5-5.0); ALBUMIN/GLOBULIN RATIO 0.6 (0.8-2.0); ALKALINE PHOSPHATASE 153 IU/L (40-150); BLOOD UREA NITROGEN 37 mg/dL (7-26); BUN/CREATININE RATIO 39 (6-25); CALCIUM 7.5 mg/dL (8.4-10.2); CARBON DIOXIDE 22 mmol/L (22-29); CHLORIDE 106 mmol/L (98-107); CREATININE, SERUM 0.94 mg/dL (0.72-1.25); EST GLOMERULAR FILTRATION RATE > 60 ML/MIN (60-); GLUCOSE 129 mg/dL (74-118); SODIUM 141 mmol/L (136-145)
[2020-10-09] MEDS: ZINC SULFATE 220 MG CAP PO SCH (08:20)
[2020-10-09] MEDS: ASCORBIC ACID 500 MG TAB PO SCH ×2 (08:20→15:51)
[2020-10-09] MEDS: MIDAZOLAM HCL 5MG/ML 10ML VIAL 100 ML IV PRN ×2 (08:31→19:06)
[2020-10-09] MEDS: DEXAMETHASONE SOD PHOS 10 MG/1 ML VIAL IV SCH (08:32)
[2020-10-09] MEDS: AZITHROMYCIN 500MG/NS 250 ML 250 ML IV SCH (08:32)
[2020-10-09] MEDS ORDERED: LACTATED RINGER'S 500 ML INJ ONE (09:00)
[2020-10-09] MEDS: ALBUTEROL SULF 0.083% NEB SOLN 3 ML NEB NEB SCH ×3 (09:41→19:00)
[2020-10-09] MEDS: ACETAMINOPHEN 325 MG TAB PO PRN (09:43)
[2020-10-09] MEDS: IBUPROFEN 400 MG TAB PO PRN (09:44)
[2020-10-09 12:48] LABS: FIBRINOGEN MAIN LAB 291 mg/dL (204-462)
[2020-10-09 13:35] LABS: ABG HCO3 25 mmol/L (22-26); ABG PCO2 47 mmHg (35-45); ABG PH 7.33 (7.35-7.45); ABG PO2 116 mmHg (80-105)
[2020-10-09 13:36] LABS: ABG TCO2 26
[2020-10-09 13:58] LABS: BASOPHILS # (AUTO) 0.1 (0.0-0.1); BASOPHILS % 0.2 % (0.0-1.0); HEMATOCRIT 34.1 % (38.2-49.6); HEMOGLOBIN 11.1 g/dL (14.0-18.0); LYMPHOCYTES # (AUTO) 0.5 (1.0-3.2); LYMPHOCYTES % 2.3 % (18.0-39.1); MEAN CORPUSCULAR HEMOGLOBIN 31.9 pg (28-32); MEAN CORPUSCULAR HGB CONC 32.6 g/dL (31-35); MONOCYTES # (AUTO) 0.6 (0.2-0.8); MONOCYTES % 2.8 % (4.4-11.3); NEUTROPHILS # (AUTO) 18.9 (2.1-6.9); PLATELET COUNT 96 x10e3/uL (140-360); RED BLOOD COUNT 3.48 x10e6/uL (4.3-5.7); RED CELL DISTRIBUTION WIDTH 14.4 % (11.7-14.4)
[2020-10-09] MEDS: REMDESIVIR 100MG/NS 100ML 100 MG IV SCH (15:29)
[2020-10-09] MEDS: CEFTRIAXONE SOD 2 GM/NS 100 ML 100 ML IV SCH (15:51)
[2020-10-09 16:16] LABS: LYMPHOCYTES % (MANUAL) 1 % (19-48); MONOCYTES % (MANUAL) 2 % (3.4-9.0); NEUTROPHILS % (MANUAL) 97 % (40-74); PLATELET ESTIMATE SLIGHTLY DECREASED; PLATELET MORPHOLOGY COMMENT NORMAL; RBC MORPHOLOGY COMMENT NORMAL
[2020-10-09] MEDS ORDERED: FONDAPARINUX SODIUM 7.5 MG/0.6 ML SYR SQ SCH (17:00)
[2020-10-09] MEDS ORDERED: ENOXAPARIN SOD INJ 40 MG/0.4 ML SYR SC STA (17:15)
[2020-10-09] MEDS: FENTANYL 2000MCG/NS 250 250 ML IV PRN (19:06)
[2020-10-09] MEDS: NOREPINEPHRINE INJ 4MG/4ML 8 MG in DEXTROSE 5% 250ML 250 ML IV PRN (19:45)
[2020-10-10] VITALS (38 sets, daily range): BP systolic 86–112; BP diastolic 45–62
[2020-10-10] MEDS: ALBUTEROL SULFATE HFA 8GM INHALATION AEROSOL INH SCH ×7 (00:15→19:00)
[2020-10-10] MEDS ORDERED: ROCURONIUM BROMIDE 250 ML IV ONE (00:15)
[2020-10-10] MEDS ORDERED: ROCURONIUM BROMIDE 1,250 MG in SODIUM CHLORIDE 0.9% 250ML 125 ML IV PRN (00:15)
[2020-10-10] MEDS: ACETAMINOPHEN 325 MG TAB PO PRN ×2 (00:35→12:30)
[2020-10-10] MEDS: FENTANYL 2000MCG/NS 250 250 ML IV PRN ×2 (04:23→16:10)
[2020-10-10] MEDS: MIDAZOLAM HCL 5MG/ML 10ML VIAL 100 ML IV PRN ×3 (04:23→20:06)
[2020-10-10 06:38] LABS: HEMATOCRIT 30.1 % (38.2-49.6); HEMOGLOBIN 9.7 g/dL (14.0-18.0); MEAN CORPUSCULAR HEMOGLOBIN 31.2 pg (28-32); MEAN CORPUSCULAR HGB CONC 32.2 g/dL (31-35); MEAN CORPUSCULAR VOLUME 96.8 fL (81-99); PLATELET COUNT 98 x10e3/uL (140-360); RED BLOOD COUNT 3.11 x10e6/uL (4.3-5.7); RED CELL DISTRIBUTION WIDTH 14.6 % (11.7-14.4)
[2020-10-10 07:26] LABS: LYMPHOCYTES % (MANUAL) 1 % (19-48); MONOCYTES % (MANUAL) 5 % (3.4-9.0); NEUTROPHILS % (MANUAL) 94 % (40-74); RBC MORPHOLOGY COMMENT NORMAL
[2020-10-10 07:27] LABS: ANISOCYTOSIS SLIGHT; PLATELET MORPHOLOGY COMMENT RARE EDTA CLUMPING
[2020-10-10 07:29] LABS: PLATELET ESTIMATE SLIGHTLY DECREASED
[2020-10-10] MEDS ORDERED: FONDAPARINUX SODIUM 7.5 MG/0.6 ML SYR SQ SCH (08:00)
[2020-10-10 08:04] LABS: ALANINE AMINOTRANSFERASE 46 IU/L (0-55); ALBUMIN 1.7 g/dL (3.5-5.0); ALBUMIN/GLOBULIN RATIO 0.5 (0.8-2.0); ANION GAP 12.3 mmol/L (8-16); BLOOD UREA NITROGEN 34 mg/dL (7-26); BUN/CREATININE RATIO 43 (6-25); CALCIUM 7.3 mg/dL (8.4-10.2); CARBON DIOXIDE 26 mmol/L (22-29); CHLORIDE 110 mmol/L (98-107); EST GLOMERULAR FILTRATION RATE > 60 ML/MIN (60-); GLUCOSE 137 mg/dL (74-118); POTASSIUM 4.3 mmol/L (3.5-5.1); SODIUM 144 mmol/L (136-145)
[2020-10-10] MEDS: ASCORBIC ACID 500 MG TAB PO SCH ×2 (08:19→16:11)
[2020-10-10] MEDS: ZINC SULFATE 220 MG CAP PO SCH (08:19)
[2020-10-10] MEDS: DEXAMETHASONE SOD PHOS 10 MG/1 ML VIAL IV SCH (08:19)
[2020-10-10] MEDS: AZITHROMYCIN 500MG/NS 250 ML 250 ML IV SCH (08:20)
[2020-10-10 08:52] LABS: ALKALINE PHOSPHATASE 131 IU/L (40-150)
[2020-10-10] MEDS ORDERED: DEXAMETHASONE SOD PHOS 10 MG/1 ML VIAL IV SCH (09:00)
[2020-10-10 11:01] LABS: ABG HCO3 28 mmol/L (22-26); ABG PCO2 46 mmHg (35-45); ABG PH 7.39 (7.35-7.45); ABG PO2 152 mmHg (80-105); ABG TCO2 29
[2020-10-10] MEDS: IBUPROFEN 400 MG TAB PO PRN (12:30)
[2020-10-10] MEDS: BALSAM PERU/CASTOR OIL 60 GM OINT...G. TP SCH (15:10)
[2020-10-10] MEDS: CEFTRIAXONE SOD 2 GM/NS 100 ML 100 ML IV SCH (16:09)
[2020-10-10 17:37] LABS: ABG HCO3 28 mmol/L (22-26); ABG PCO2 48 mmHg (35-45); ABG PH 7.37 (7.35-7.45); ABG PO2 134 mmHg (80-105); ABG TCO2 29
[2020-10-11] VITALS (15 sets, daily range): BP systolic 94–109; BP diastolic 51–63
[2020-10-11] MEDS: ALBUTEROL SULFATE HFA 8GM INHALATION AEROSOL INH SCH ×6 (00:15→20:30)
[2020-10-11] MEDS: FENTANYL 2000MCG/NS 250 250 ML IV PRN ×2 (03:11→15:34)
[2020-10-11] MEDS: MIDAZOLAM HCL 5MG/ML 10ML VIAL 100 ML IV PRN ×3 (03:12→18:16)
[2020-10-11 05:12] LABS: BASOPHILS % 0.1 % (0.0-1.0); HEMATOCRIT 28.1 % (38.2-49.6); HEMOGLOBIN 8.9 g/dL (14.0-18.0); LYMPHOCYTES # (AUTO) 0.3 (1.0-3.2); LYMPHOCYTES % 1.9 % (18.0-39.1); MEAN CORPUSCULAR HEMOGLOBIN 31.7 pg (28-32); MEAN CORPUSCULAR HGB CONC 31.7 g/dL (31-35); MONOCYTES # (AUTO) 0.9 (0.2-0.8); MONOCYTES % 5.1 % (4.4-11.3); NEUTROPHILS # (AUTO) 15.8 (2.1-6.9); NEUTROPHILS % 91.9 % (38.7-80.0); PLATELET COUNT 114 x10e3/uL (140-360); RED BLOOD COUNT 2.81 x10e6/uL (4.3-5.7); RED CELL DISTRIBUTION WIDTH 14.6 % (11.7-14.4)
[2020-10-11 05:38] LABS: ALANINE AMINOTRANSFERASE 38 IU/L (0-55); ALBUMIN 1.7 g/dL (3.5-5.0); ALBUMIN/GLOBULIN RATIO 0.5 (0.8-2.0); ALKALINE PHOSPHATASE 131 IU/L (40-150); ANION GAP 10.8 mmol/L (8-16); BLOOD UREA NITROGEN 50 mg/dL (7-26); BUN/CREATININE RATIO 57 (6-25); CALCIUM 7.6 mg/dL (8.4-10.2); CARBON DIOXIDE 28 mmol/L (22-29); CHLORIDE 112 mmol/L (98-107); CREATININE, SERUM 0.87 mg/dL (0.72-1.25); EST GLOMERULAR FILTRATION RATE > 60 ML/MIN (60-); GLUCOSE 172 mg/dL (74-118); POTASSIUM 4.8 mmol/L (3.5-5.1); SODIUM 146 mmol/L (136-145)
[2020-10-11 06:20] LABS: FERRITIN 1206.84 ng/mL (21.81-274.66)
[2020-10-11] MEDS: ASCORBIC ACID 500 MG TAB PO SCH ×2 (08:36→16:10)
[2020-10-11] MEDS: ZINC SULFATE 220 MG CAP PO SCH (08:36)
[2020-10-11] MEDS: DEXAMETHASONE SOD PHOS 10 MG/1 ML VIAL IV SCH (08:36)
[2020-10-11 09:07] LABS: ABG HCO3 28 mmol/L (22-26); ABG PCO2 46 mmHg (35-45); ABG PH 7.39 (7.35-7.45); ABG PO2 74 mmHg (80-105); ABG TCO2 29
[2020-10-11] MEDS: BALSAM PERU/CASTOR OIL 60 GM OINT...G. TP SCH (09:47)
[2020-10-11] MEDS: CEFTRIAXONE SOD 2 GM/NS 100 ML 100 ML IV SCH (16:10)
[2020-10-11 17:07] LABS: ABG PCO2 44 mmHg (35-45); ABG PH 7.42 (7.35-7.45); ABG PO2 70 mmHg (80-105)
[2020-10-11 17:08] LABS: ABG HCO3 29 mmol/L (22-26); ABG TCO2 30
[2020-10-11] MEDS ORDERED: FONDAPARINUX SODIUM 7.5 MG/0.6 ML SYR SQ SCH (18:00)
[2020-10-12] VITALS (18 sets, daily range): BP systolic 5–125; BP diastolic 53–63
[2020-10-12] MEDS: FENTANYL 2000MCG/NS 250 250 ML IV PRN ×2 (02:45→10:09)
[2020-10-12] MEDS: MIDAZOLAM HCL 5MG/ML 10ML VIAL 100 ML IV PRN ×3 (02:46→18:32)
[2020-10-12 04:54] LABS: BASOPHILS % 0.2 % (0.0-1.0); HEMATOCRIT 26.6 % (38.2-49.6); HEMOGLOBIN 8.4 g/dL (14.0-18.0); LYMPHOCYTES # (AUTO) 0.5 (1.0-3.2); LYMPHOCYTES % 3.3 % (18.0-39.1); MEAN CORPUSCULAR HEMOGLOBIN 31.3 pg (28-32); MEAN CORPUSCULAR HGB CONC 31.6 g/dL (31-35); MEAN CORPUSCULAR VOLUME 99.3 fL (81-99); MONOCYTES # (AUTO) 1.3 (0.2-0.8); MONOCYTES % 8.6 % (4.4-11.3); NEUTROPHILS # (AUTO) 12.8 (2.1-6.9); NEUTROPHILS % 86.9 % (38.7-80.0); PLATELET COUNT 111 x10e3/uL (140-360); RED BLOOD COUNT 2.68 x10e6/uL (4.3-5.7)
[2020-10-12 05:29] LABS: ALANINE AMINOTRANSFERASE 31 IU/L (0-55); ALBUMIN 1.6 g/dL (3.5-5.0); ALBUMIN/GLOBULIN RATIO 0.4 (0.8-2.0); ALKALINE PHOSPHATASE 123 IU/L (40-150); ANION GAP 11.6 mmol/L (8-16); BLOOD UREA NITROGEN 56 mg/dL (7-26); BUN/CREATININE RATIO 64 (6-25); CALCIUM 7.5 mg/dL (8.4-10.2); CARBON DIOXIDE 28 mmol/L (22-29); CHLORIDE 115 mmol/L (98-107); CREATININE, SERUM 0.87 mg/dL (0.72-1.25); EST GLOMERULAR FILTRATION RATE > 60 ML/MIN (60-); GLUCOSE 168 mg/dL (74-118); POTASSIUM 4.6 mmol/L (3.5-5.1); SODIUM 150 mmol/L (136-145)
[2020-10-12] MEDS: ALBUTEROL SULFATE HFA 8GM INHALATION AEROSOL INH SCH ×6 (05:30→23:25)
[2020-10-12] MEDS: DEXAMETHASONE SOD PHOS 10 MG/1 ML VIAL IV SCH (08:05)
[2020-10-12] MEDS: ZINC SULFATE 220 MG CAP PO SCH (08:05)
[2020-10-12] MEDS: ASCORBIC ACID 500 MG TAB PO SCH ×2 (08:05→16:21)
[2020-10-12] MEDS: BALSAM PERU/CASTOR OIL 60 GM OINT...G. TP SCH (08:05)
[2020-10-12 08:09] LABS: ABG PH 7.45 (7.35-7.45)
[2020-10-12 08:10] LABS: ABG HCO3 29 mmol/L (22-26); ABG PCO2 42 mmHg (35-45); ABG PO2 69 mmHg (80-105); ABG TCO2 30
[2020-10-12] MEDS ORDERED: HEPARIN 25,000 UNIT 1,400 UNIT in DEXTROSE 5% 250ML 250 ML IV SCH (10:45)
[2020-10-12] MEDS: HEPARIN 25,000 UNIT 1,400 UNIT in DEXTROSE 5% 250ML 250 ML IV SCH (11:46)
[2020-10-12] MEDS: CEFTRIAXONE SOD 2 GM/NS 100 ML 100 ML IV SCH (16:21)
[2020-10-13] VITALS (25 sets, daily range): BP systolic 105–126; BP diastolic 50–63
[2020-10-13] MEDS: FENTANYL 2000MCG/NS 250 250 ML IV PRN ×2 (00:55→11:42)
[2020-10-13] MEDS ORDERED: HEPARIN 25,000 UNIT DRIP IV ONE (02:23)
[2020-10-13] MEDS: HEPARIN 25,000 UNIT 1,400 UNIT in DEXTROSE 5% 250ML 250 ML IV SCH (02:24)
[2020-10-13 04:53] LABS: BASOPHILS % 0.1 % (0.0-1.0); HEMATOCRIT 27.6 % (38.2-49.6); HEMOGLOBIN 8.7 g/dL (14.0-18.0); LYMPHOCYTES # (AUTO) 0.5 (1.0-3.2); LYMPHOCYTES % 3.8 % (18.0-39.1); MEAN CORPUSCULAR HEMOGLOBIN 31.6 pg (28-32); MEAN CORPUSCULAR HGB CONC 31.5 g/dL (31-35); MEAN CORPUSCULAR VOLUME 100.4 fL (81-99); MONOCYTES # (AUTO) 1.3 (0.2-0.8); MONOCYTES % 9.3 % (4.4-11.3); NEUTROPHILS % 85.4 % (38.7-80.0); PLATELET COUNT 141 x10e3/uL (140-360); RED BLOOD COUNT 2.75 x10e6/uL (4.3-5.7); RED CELL DISTRIBUTION WIDTH 14.6 % (11.7-14.4)
[2020-10-13 05:25] LABS: ALANINE AMINOTRANSFERASE 28 IU/L (0-55); ALBUMIN 1.7 g/dL (3.5-5.0); ALBUMIN/GLOBULIN RATIO 0.4 (0.8-2.0); ALKALINE PHOSPHATASE 109 IU/L (40-150); ANION GAP 12.6 mmol/L (8-16); BLOOD UREA NITROGEN 54 mg/dL (7-26); BUN/CREATININE RATIO 77 (6-25); CALCIUM 7.9 mg/dL (8.4-10.2); CARBON DIOXIDE 29 mmol/L (22-29); CHLORIDE 113 mmol/L (98-107); EST GLOMERULAR FILTRATION RATE > 60 ML/MIN (60-); GLUCOSE 150 mg/dL (74-118); POTASSIUM 4.6 mmol/L (3.5-5.1); SODIUM 150 mmol/L (136-145)
[2020-10-13] MEDS: ALBUTEROL SULFATE HFA 8GM INHALATION AEROSOL INH SCH ×6 (07:17→23:35)
[2020-10-13] MEDS: ASCORBIC ACID 500 MG TAB PO SCH ×2 (08:00→16:13)
[2020-10-13] MEDS: DEXAMETHASONE SOD PHOS 10 MG/1 ML VIAL IV SCH (08:00)
[2020-10-13] MEDS: ZINC SULFATE 220 MG CAP PO SCH (08:00)
[2020-10-13] MEDS: BALSAM PERU/CASTOR OIL 60 GM OINT...G. TP SCH (08:00)
[2020-10-13] MEDS: MIDAZOLAM HCL 5MG/ML 10ML VIAL 100 ML IV PRN (11:43)
[2020-10-13] MEDS: CEFTRIAXONE SOD 2 GM/NS 100 ML 100 ML IV SCH (15:10)
[2020-10-13 16:24] LABS: ABG HCO3 30 mmol/L (22-26); ABG PCO2 44 mmHg (35-45); ABG PH 7.44 (7.35-7.45); ABG PO2 96 mmHg (80-105); ABG TCO2 31
[2020-10-13] MEDS: GENTAMICIN SULFATE 0.3% OP 5 ML BTL OD SCH ×2 (18:20→21:59)
[2020-10-13] MEDS: ENOXAPARIN INJ 80 MG/0.8 ML SYR SC SCH (21:58)
[2020-10-14] VITALS (24 sets, daily range): BP systolic 106–130; BP diastolic 49–69
[2020-10-14] MEDS: GENTAMICIN SULFATE 0.3% OP 5 ML BTL OD SCH ×6 (02:15→21:55)
[2020-10-14] MEDS: ALBUTEROL SULFATE HFA 8GM INHALATION AEROSOL INH SCH ×5 (03:50→19:30)
[2020-10-14 04:55] LABS: BASOPHILS % 0.1 % (0.0-1.0); HEMATOCRIT 27.9 % (38.2-49.6); HEMOGLOBIN 8.6 g/dL (14.0-18.0); LYMPHOCYTES # (AUTO) 0.5 (1.0-3.2); LYMPHOCYTES % 3.5 % (18.0-39.1); MEAN CORPUSCULAR HEMOGLOBIN 30.9 pg (28-32); MEAN CORPUSCULAR HGB CONC 30.8 g/dL (31-35); MEAN CORPUSCULAR VOLUME 100.4 fL (81-99); MONOCYTES # (AUTO) 1.3 (0.2-0.8); MONOCYTES % 8.2 % (4.4-11.3); NEUTROPHILS # (AUTO) 13.3 (2.1-6.9); NEUTROPHILS % 86.6 % (38.7-80.0); PLATELET COUNT 169 x10e3/uL (140-360); RED BLOOD COUNT 2.78 x10e6/uL (4.3-5.7); RED CELL DISTRIBUTION WIDTH 14.5 % (11.7-14.4)
[2020-10-14 05:23] LABS: ALANINE AMINOTRANSFERASE 25 IU/L (0-55); ALBUMIN 1.8 g/dL (3.5-5.0); ALBUMIN/GLOBULIN RATIO 0.5 (0.8-2.0); ALKALINE PHOSPHATASE 103 IU/L (40-150); ANION GAP 11.6 mmol/L (8-16); BLOOD UREA NITROGEN 53 mg/dL (7-26); BUN/CREATININE RATIO 73 (6-25); CALCIUM 7.8 mg/dL (8.4-10.2); CARBON DIOXIDE 29 mmol/L (22-29); CHLORIDE 113 mmol/L (98-107); CREATININE, SERUM 0.73 mg/dL (0.72-1.25); EST GLOMERULAR FILTRATION RATE > 60 ML/MIN (60-); GLUCOSE 160 mg/dL (74-118); POTASSIUM 4.6 mmol/L (3.5-5.1); SODIUM 149 mmol/L (136-145)
[2020-10-14] MEDS: ZINC SULFATE 220 MG CAP PO SCH (08:04)
[2020-10-14] MEDS: BALSAM PERU/CASTOR OIL 60 GM OINT...G. TP SCH (08:04)
[2020-10-14] MEDS: ENOXAPARIN INJ 80 MG/0.8 ML SYR SC SCH ×2 (08:04→21:55)
[2020-10-14] MEDS: ASCORBIC ACID 500 MG TAB PO SCH ×2 (08:04→16:06)
[2020-10-14] MEDS: MIDAZOLAM HCL 5MG/ML 10ML VIAL 100 ML IV PRN ×3 (09:13→22:30)
[2020-10-14] MEDS: FENTANYL 2000MCG/NS 250 250 ML IV PRN ×2 (09:14→17:51)
[2020-10-14 09:45] LABS: ABG HCO3 32 mmol/L (22-26); ABG PCO2 44 mmHg (35-45); ABG PH 7.46 (7.35-7.45); ABG PO2 90 mmHg (80-105); ABG TCO2 33
[2020-10-14] MEDS: ACETAMINOPHEN 325 MG TAB PO PRN (14:50)
[2020-10-14] MEDS: DOCUSATE SODIUM LIQD 100 MG/10 ML UDC NG SCH (17:50)
[2020-10-15] VITALS (26 sets, daily range): BP systolic 96–136; BP diastolic 46–62
[2020-10-15] MEDS: GENTAMICIN SULFATE 0.3% OP 5 ML BTL OD SCH ×6 (02:15→21:52)
[2020-10-15] MEDS: FENTANYL 2000MCG/NS 250 250 ML IV PRN ×3 (02:15→16:22)
[2020-10-15] MEDS: MIDAZOLAM HCL 5MG/ML 10ML VIAL 100 ML IV PRN ×4 (03:40→23:34)
[2020-10-15 05:10] LABS: BASOPHILS % 0.2 % (0.0-1.0); EOSINOPHILS # (AUTO) 0.1 (0.0-0.4); EOSINOPHILS % 0.6 % (0.0-6.0); HEMATOCRIT 28.2 % (38.2-49.6); HEMOGLOBIN 8.8 g/dL (14.0-18.0); LYMPHOCYTES # (AUTO) 0.9 (1.0-3.2); LYMPHOCYTES % 5.6 % (18.0-39.1); MEAN CORPUSCULAR HEMOGLOBIN 31.8 pg (28-32); MEAN CORPUSCULAR HGB CONC 31.2 g/dL (31-35); MEAN CORPUSCULAR VOLUME 101.8 fL (81-99); MONOCYTES # (AUTO) 1.1 (0.2-0.8); MONOCYTES % 6.9 % (4.4-11.3); NEUTROPHILS % 83.7 % (38.7-80.0); PLATELET COUNT 217 x10e3/uL (140-360); RED BLOOD COUNT 2.77 x10e6/uL (4.3-5.7); RED CELL DISTRIBUTION WIDTH 14.6 % (11.7-14.4)
[2020-10-15 05:34] LABS: ALANINE AMINOTRANSFERASE 22 IU/L (0-55); ALBUMIN 1.7 g/dL (3.5-5.0); ALBUMIN/GLOBULIN RATIO 0.4 (0.8-2.0); ALKALINE PHOSPHATASE 96 IU/L (40-150); ANION GAP 10.2 mmol/L (8-16); BLOOD UREA NITROGEN 48 mg/dL (7-26); BUN/CREATININE RATIO 70 (6-25); CALCIUM 7.7 mg/dL (8.4-10.2); CARBON DIOXIDE 30 mmol/L (22-29); CHLORIDE 110 mmol/L (98-107); CREATININE, SERUM 0.69 mg/dL (0.72-1.25); EST GLOMERULAR FILTRATION RATE > 60 ML/MIN (60-); GLUCOSE 114 mg/dL (74-118); POTASSIUM 4.2 mmol/L (3.5-5.1); SODIUM 146 mmol/L (136-145)
[2020-10-15] MEDS: ALBUTEROL SULFATE HFA 8GM INHALATION AEROSOL INH SCH ×5 (07:09→23:25)
[2020-10-15] MEDS: ENOXAPARIN INJ 80 MG/0.8 ML SYR SC SCH ×2 (08:00→21:52)
[2020-10-15] MEDS: ASCORBIC ACID 500 MG TAB PO SCH ×2 (08:00→16:03)
[2020-10-15] MEDS: ZINC SULFATE 220 MG CAP PO SCH (08:00)
[2020-10-15] MEDS: ACETAMINOPHEN 325 MG TAB PO PRN ×2 (08:00→21:53)
[2020-10-15] MEDS: BALSAM PERU/CASTOR OIL 60 GM OINT...G. TP SCH (08:00)
[2020-10-15] MEDS: DOCUSATE SODIUM LIQD 100 MG/10 ML UDC NG SCH ×2 (08:00→16:03)
[2020-10-15] MEDS ORDERED: BISACODYL 10 MG SUPP PR NR (11:30)
[2020-10-15] MEDS ORDERED: BISACODYL 10 MG SUPP PR ONE (16:09)
[2020-10-15 17:26] LABS: ABG HCO3 30 mmol/L (22-26); ABG PCO2 43 mmHg (35-45); ABG PH 7.45 (7.35-7.45); ABG PO2 78 mmHg (80-105); ABG TCO2 31
[2020-10-15] MEDS ORDERED: HEPARIN SOD/SOD CHLORIDE 1,000 ML ONE (22:07)
[2020-10-16] VITALS (28 sets, daily range): BP systolic 81–174; BP diastolic 38–91
[2020-10-16] MEDS: GENTAMICIN SULFATE 0.3% OP 5 ML BTL OD SCH ×6 (01:40→22:25)
[2020-10-16] MEDS: FENTANYL 2000MCG/NS 250 250 ML IV PRN ×3 (01:41→21:34)
[2020-10-16] MEDS: ALBUTEROL SULFATE HFA 8GM INHALATION AEROSOL INH SCH ×5 (03:50→19:20)
[2020-10-16 05:42] LABS: BASOPHILS % 0.2 % (0.0-1.0); EOSINOPHILS # (AUTO) 0.2 (0.0-0.4); EOSINOPHILS % 0.9 % (0.0-6.0); HEMATOCRIT 29.4 % (38.2-49.6); HEMOGLOBIN 9.4 g/dL (14.0-18.0); LYMPHOCYTES # (AUTO) 0.9 (1.0-3.2); LYMPHOCYTES % 4.9 % (18.0-39.1); MEAN CORPUSCULAR HEMOGLOBIN 33.2 pg (28-32); MEAN CORPUSCULAR VOLUME 103.9 fL (81-99); MONOCYTES # (AUTO) 1.2 (0.2-0.8); MONOCYTES % 6.7 % (4.4-11.3); NEUTROPHILS # (AUTO) 14.6 (2.1-6.9); NEUTROPHILS % 83.8 % (38.7-80.0); PLATELET COUNT 262 x10e3/uL (140-360); RED BLOOD COUNT 2.83 x10e6/uL (4.3-5.7); RED CELL DISTRIBUTION WIDTH 14.7 % (11.7-14.4)
[2020-10-16 05:57] LABS: ALANINE AMINOTRANSFERASE 29 IU/L (0-55); ALBUMIN 1.8 g/dL (3.5-5.0); ALBUMIN/GLOBULIN RATIO 0.4 (0.8-2.0); ALKALINE PHOSPHATASE 126 IU/L (40-150); ANION GAP 12.5 mmol/L (8-16); BLOOD UREA NITROGEN 44 mg/dL (7-26); BUN/CREATININE RATIO 69 (6-25); CALCIUM 8.1 mg/dL (8.4-10.2); CARBON DIOXIDE 29 mmol/L (22-29); CHLORIDE 106 mmol/L (98-107); CREATININE, SERUM 0.64 mg/dL (0.72-1.25); EST GLOMERULAR FILTRATION RATE > 60 ML/MIN (60-); GLUCOSE 117 mg/dL (74-118); POTASSIUM 4.5 mmol/L (3.5-5.1); SODIUM 143 mmol/L (136-145)
[2020-10-16] MEDS: ACETAMINOPHEN 325 MG TAB PO PRN ×2 (06:10→14:46)
[2020-10-16] MEDS: ENOXAPARIN INJ 80 MG/0.8 ML SYR SC SCH ×2 (08:00→21:00)
[2020-10-16] MEDS: ASCORBIC ACID 500 MG TAB PO SCH ×2 (08:00→16:42)
[2020-10-16] MEDS: MIDAZOLAM HCL 5MG/ML 10ML VIAL 100 ML IV PRN ×2 (08:00→17:47)
[2020-10-16] MEDS: BALSAM PERU/CASTOR OIL 60 GM OINT...G. TP SCH (08:00)
[2020-10-16] MEDS: DOCUSATE SODIUM LIQD 100 MG/10 ML UDC NG SCH ×2 (08:00→16:42)
[2020-10-16] MEDS: ZINC SULFATE 220 MG CAP PO SCH (08:00)
[2020-10-16 10:15] LABS: ABG PCO2 42 mmHg (35-45); ABG PH 7.48 (7.35-7.45); ABG PO2 126 mmHg (80-105)
[2020-10-16 10:16] LABS: ABG HCO3 32 mmol/L (22-26); ABG TCO2 33
[2020-10-16] MEDS: IBUPROFEN 400 MG TAB PO PRN (14:45)
[2020-10-16] MEDS ORDERED: LACTATED RINGER'S 1,000 ML INJ SCH (15:45)
[2020-10-16] MEDS: LACTULOSE SYRUP 20 GM/30 ML UDC NG PRN (15:47)
[2020-10-16] MEDS ORDERED: LACTATED RINGER'S 300 ML INJ ONE ×2 (16:00→17:00)
[2020-10-16] MEDS ORDERED: NOREPINEPHRINE 8 MG/D5W 250 ML 250 ML IV PRN (17:00)
[2020-10-16] MEDS ORDERED: DEXAMETHASONE SOD PHOS 10 MG/1 ML VIAL IV ONE (18:30)
[2020-10-16] MEDS ORDERED: LACTATED RINGER'S 1,000 ML ONE (21:55)
[2020-10-16] MEDS ORDERED: VANCOMYCIN 1GM/NS 250 ML 250 ML ONE (21:55)
[2020-10-16] MEDS ORDERED: VANCOMYCIN 1GM/NS 250 ML 250 ML IV ONE (22:00)
[2020-10-16] MEDS ORDERED: LACTATED RINGER'S 1,000 ML INJ ONE (22:00)
[2020-10-17] VITALS (26 sets, daily range): BP systolic 107–152; BP diastolic 49–70
[2020-10-17 00:11] LABS: ALANINE AMINOTRANSFERASE 36 IU/L (0-55); ALBUMIN 1.6 g/dL (3.5-5.0); ALBUMIN/GLOBULIN RATIO 0.4 (0.8-2.0); ALKALINE PHOSPHATASE 135 IU/L (40-150); ANION GAP 12.7 mmol/L (8-16); BLOOD UREA NITROGEN 39 mg/dL (7-26); BUN/CREATININE RATIO 55 (6-25); CALCIUM 7.9 mg/dL (8.4-10.2); CARBON DIOXIDE 28 mmol/L (22-29); CHLORIDE 106 mmol/L (98-107); CREATININE, SERUM 0.71 mg/dL (0.72-1.25); EST GLOMERULAR FILTRATION RATE > 60 ML/MIN (60-); GLUCOSE 206 mg/dL (74-118); PHOSPHORUS 2.9 MG/DL (2.3-4.7); POTASSIUM 4.7 mmol/L (3.5-5.1); SODIUM 142 mmol/L (136-145)
[2020-10-17 00:20] LABS: CREATINE KINASE MB 0.6 ng/mL (0-5.0)
[2020-10-17] MEDS: PIPER-TAZ 3.375 GM 50 ML IV SCH ×4 (00:31→18:29)
[2020-10-17] MEDS: ACETAMINOPHEN 325 MG TAB PO PRN (01:09)
[2020-10-17] MEDS: GENTAMICIN SULFATE 0.3% OP 5 ML BTL OD SCH ×6 (02:08→21:43)
[2020-10-17] MEDS: ALBUTEROL SULFATE HFA 8GM INHALATION AEROSOL INH SCH ×6 (03:45→23:15)
[2020-10-17 05:33] LABS: BASOPHILS % 0.1 % (0.0-1.0); HEMATOCRIT 26.9 % (38.2-49.6); HEMOGLOBIN 8.6 g/dL (14.0-18.0); LYMPHOCYTES # (AUTO) 0.4 (1.0-3.2); LYMPHOCYTES % 1.6 % (18.0-39.1); MEAN CORPUSCULAR HEMOGLOBIN 32.8 pg (28-32); MEAN CORPUSCULAR VOLUME 102.7 fL (81-99); MONOCYTES # (AUTO) 0.7 (0.2-0.8); MONOCYTES % 3.1 % (4.4-11.3); NEUTROPHILS # (AUTO) 19.8 (2.1-6.9); NEUTROPHILS % 92.2 % (38.7-80.0); PLATELET COUNT 367 x10e3/uL (140-360); RED BLOOD COUNT 2.62 x10e6/uL (4.3-5.7); RED CELL DISTRIBUTION WIDTH 14.6 % (11.7-14.4)
[2020-10-17 06:00] LABS: ALANINE AMINOTRANSFERASE 33 IU/L (0-55); ALBUMIN 1.6 g/dL (3.5-5.0); ALBUMIN/GLOBULIN RATIO 0.4 (0.8-2.0); ALKALINE PHOSPHATASE 137 IU/L (40-150); ANION GAP 11.8 mmol/L (8-16); BLOOD UREA NITROGEN 35 mg/dL (7-26); BUN/CREATININE RATIO 51 (6-25); CALCIUM 7.9 mg/dL (8.4-10.2); CARBON DIOXIDE 28 mmol/L (22-29); CHLORIDE 106 mmol/L (98-107); CREATININE, SERUM 0.69 mg/dL (0.72-1.25); EST GLOMERULAR FILTRATION RATE > 60 ML/MIN (60-); GLUCOSE 209 mg/dL (74-118); POTASSIUM 4.8 mmol/L (3.5-5.1); SODIUM 141 mmol/L (136-145)
[2020-10-17] MEDS: FENTANYL 2000MCG/NS 250 250 ML IV PRN (06:29)
[2020-10-17 09:19] LABS: ABG PH 7.44 (7.35-7.45)
[2020-10-17 09:20] LABS: ABG HCO3 29 mmol/L (22-26); ABG PCO2 44 mmHg (35-45); ABG PO2 75 mmHg (80-105); ABG TCO2 31
[2020-10-17] MEDS ORDERED: CISATRACURIUM BESYLATE 100 MG in SODIUM CHLORIDE 0.9% 100 ML 50 ML IV PRN (09:30)
[2020-10-17 09:58] LABS: LYMPHOCYTES % (MANUAL) 2 % (19-48); MONOCYTES % (MANUAL) 5 % (3.4-9.0); NEUTROPHILS % (MANUAL) 93 % (40-74)
[2020-10-17] MEDS: FUROSEMIDE INJ 10 MG/ML 4 ML VIAL IV SCH ×2 (10:05→21:00)
[2020-10-17] MEDS: DOCUSATE SODIUM LIQD 100 MG/10 ML UDC NG SCH ×2 (10:05→18:45)
[2020-10-17] MEDS: ASCORBIC ACID 500 MG TAB PO SCH ×2 (10:05→18:30)
[2020-10-17] MEDS: ENOXAPARIN INJ 80 MG/0.8 ML SYR SC SCH ×2 (10:06→21:00)
[2020-10-17] MEDS: ZINC SULFATE 220 MG CAP PO SCH (10:06)
[2020-10-17] MEDS: ROCURONIUM BROMIDE 1,250 MG in SODIUM CHLORIDE 0.9% 250ML 125 ML IV SCH (10:45)
[2020-10-17] MEDS: MIDAZOLAM HCL 5MG/ML 10ML VIAL 100 ML IV PRN (11:02)
[2020-10-17] MEDS: BALSAM PERU/CASTOR OIL 60 GM OINT...G. TP SCH (12:38)
[2020-10-17] MEDS ORDERED: SODIUM CHLORIDE 0.9% 250ML 250 ML ONE (15:26)
[2020-10-17] MEDS: ALBUMIN 25% 25GM 100ML 0.25 GM/ML BTL IV SCH ×2 (19:00→22:28)
[2020-10-18] VITALS (32 sets, daily range): BP systolic 98–125; BP diastolic 46–72
[2020-10-18] MEDS: MIDAZOLAM HCL 5MG/ML 10ML VIAL 100 ML IV PRN ×3 (00:20→13:59)
[2020-10-18] MEDS: PIPER-TAZ 3.375 GM 50 ML IV SCH ×5 (00:43→23:39)
[2020-10-18] MEDS: FENTANYL 2000MCG/NS 250 250 ML IV PRN ×3 (00:54→17:39)
[2020-10-18] MEDS: GENTAMICIN SULFATE 0.3% OP 5 ML BTL OD SCH ×6 (02:00→21:13)
[2020-10-18] MEDS: ALBUTEROL SULFATE HFA 8GM INHALATION AEROSOL INH SCH ×6 (03:20→23:00)
[2020-10-18 04:57] LABS: BASOPHILS % 0.1 % (0.0-1.0); EOSINOPHILS % 0.3 % (0.0-6.0); HEMATOCRIT 21.9 % (38.2-49.6); LYMPHOCYTES # (AUTO) 0.7 (1.0-3.2); LYMPHOCYTES % 5.1 % (18.0-39.1); MEAN CORPUSCULAR HEMOGLOBIN 31.9 pg (28-32); MEAN CORPUSCULAR HGB CONC 31.5 g/dL (31-35); MEAN CORPUSCULAR VOLUME 101.4 fL (81-99); MONOCYTES # (AUTO) 1.4 (0.2-0.8); MONOCYTES % 9.4 % (4.4-11.3); NEUTROPHILS % 83.6 % (38.7-80.0); PLATELET COUNT 359 x10e3/uL (140-360); RED BLOOD COUNT 2.16 x10e6/uL (4.3-5.7); RED CELL DISTRIBUTION WIDTH 14.6 % (11.7-14.4)
[2020-10-18 04:57] LABS: ALANINE AMINOTRANSFERASE 29 IU/L (0-55); ALBUMIN 2.2 g/dL (3.5-5.0); ALBUMIN/GLOBULIN RATIO 0.6 (0.8-2.0); ALKALINE PHOSPHATASE 91 IU/L (40-150); ANION GAP 11.1 mmol/L (8-16); BLOOD UREA NITROGEN 42 mg/dL (7-26); BUN/CREATININE RATIO 58 (6-25); CARBON DIOXIDE 33 mmol/L (22-29); CHLORIDE 101 mmol/L (98-107); CREATININE, SERUM 0.73 mg/dL (0.72-1.25); EST GLOMERULAR FILTRATION RATE > 60 ML/MIN (60-); GLUCOSE 143 mg/dL (74-118); POTASSIUM 4.1 mmol/L (3.5-5.1); SODIUM 141 mmol/L (136-145)
[2020-10-18 04:59] LABS: HEMOGLOBIN 6.9 g/dL (14.0-18.0)
[2020-10-18] MEDS: ALBUMIN 25% 25GM 100ML 0.25 GM/ML BTL IV SCH (06:05)
[2020-10-18] MEDS ORDERED: SODIUM CHLORIDE 0.9% 250ML 250 ML IV SCH (07:15)
[2020-10-18] MEDS ORDERED: FUROSEMIDE INJ 10 MG/ML 2 ML VIAL IV PRN (07:15)
[2020-10-18 07:27] LABS: BAND NEUTROPHILS % (MANUAL) 4 %; EOSINOPHILS % (MANUAL) 1 % (0-7); LYMPHOCYTES % (MANUAL) 3 % (19-48); METAMYELOCYTES % (MANUAL) 1 % (0-0); MONOCYTES % (MANUAL) 6 % (3.4-9.0); MYELOCYTES % (MANUAL) 1 % (0-0); NEUTROPHILS % (MANUAL) 84 % (40-74); RBC MORPHOLOGY COMMENT ABNORMAL
[2020-10-18 07:28] LABS: PLATELET ESTIMATE ADEQUATE; PLATELET MORPHOLOGY COMMENT NORMAL
[2020-10-18] MEDS: DOCUSATE SODIUM LIQD 100 MG/10 ML UDC NG SCH ×2 (08:03→16:45)
[2020-10-18] MEDS: BALSAM PERU/CASTOR OIL 60 GM OINT...G. TP SCH (08:03)
[2020-10-18] MEDS: ZINC SULFATE 220 MG CAP PO SCH (08:03)
[2020-10-18] MEDS: ASCORBIC ACID 500 MG TAB PO SCH ×2 (08:03→16:45)
[2020-10-18] MEDS: FUROSEMIDE INJ 10 MG/ML 4 ML VIAL IV SCH (08:03)
[2020-10-18] MEDS: ENOXAPARIN INJ 80 MG/0.8 ML SYR SC SCH ×2 (08:03→21:00)
[2020-10-18] MEDS: ROCURONIUM BROMIDE 1,250 MG in SODIUM CHLORIDE 0.9% 250ML 125 ML IV SCH (09:10)
[2020-10-18 10:02] LABS: ABG HCO3 36 mmol/L (22-26); ABG PCO2 64 mmHg (35-45); ABG PH 7.35 (7.35-7.45); ABG PO2 68 mmHg (80-105); ABG TCO2 38
[2020-10-18] MEDS: FAMOTIDINE 20 MG/2 ML VIAL IV SCH ×2 (10:44→21:13)
[2020-10-18] MEDS ORDERED: SODIUM CHLORIDE 0.9% 250ML 250 ML ONE ×2 (11:59→23:46)
[2020-10-18] MEDS ORDERED: FUROSEMIDE INJ 10 MG/ML 4 ML VIAL ONE (11:59)
[2020-10-18 17:52] LABS: ABG HCO3 39 mmol/L (22-26); ABG PCO2 55 mmHg (35-45); ABG PH 7.46 (7.35-7.45); ABG PO2 92 mmHg (80-105); ABG TCO2 40
[2020-10-18] MEDS ORDERED: ROCURONIUM BROMIDE 1,250 MG in SODIUM CHLORIDE 0.9% 250ML 125 ML IV SCH (19:45)
[2020-10-18] MEDS: ACETAMINOPHEN 325 MG TAB PO PRN (21:14)
[2020-10-19] VITALS (25 sets, daily range): BP systolic 86–171; BP diastolic 40–65
[2020-10-19] MEDS: MIDAZOLAM HCL 5MG/ML 10ML VIAL 100 ML IV PRN ×5 (01:00→21:50)
[2020-10-19] MEDS: FENTANYL 2000MCG/NS 250 250 ML IV PRN ×3 (01:01→21:50)
[2020-10-19] MEDS: GENTAMICIN SULFATE 0.3% OP 5 ML BTL OD SCH ×6 (02:00→21:45)
[2020-10-19] MEDS: ALBUTEROL SULFATE HFA 8GM INHALATION AEROSOL INH SCH ×6 (03:00→23:35)
[2020-10-19] MEDS: ACETAMINOPHEN 325 MG TAB PO PRN ×3 (05:30→22:15)
[2020-10-19] MEDS: PIPER-TAZ 3.375 GM 50 ML IV SCH ×3 (05:51→17:24)
[2020-10-19 05:58] LABS: BASOPHILS % 0.2 % (0.0-1.0); EOSINOPHILS # (AUTO) 0.3 (0.0-0.4); EOSINOPHILS % 1.8 % (0.0-6.0); HEMATOCRIT 29.9 % (38.2-49.6); HEMOGLOBIN 9.4 g/dL (14.0-18.0); LYMPHOCYTES # (AUTO) 1.2 (1.0-3.2); LYMPHOCYTES % 7.8 % (18.0-39.1); MEAN CORPUSCULAR HEMOGLOBIN 30.7 pg (28-32); MEAN CORPUSCULAR HGB CONC 31.4 g/dL (31-35); MEAN CORPUSCULAR VOLUME 97.7 fL (81-99); MONOCYTES # (AUTO) 1.5 (0.2-0.8); MONOCYTES % 9.4 % (4.4-11.3); NEUTROPHILS # (AUTO) 12.5 (2.1-6.9); NEUTROPHILS % 78.5 % (38.7-80.0); PLATELET COUNT 402 x10e3/uL (140-360); RED BLOOD COUNT 3.06 x10e6/uL (4.3-5.7); RED CELL DISTRIBUTION WIDTH 16.7 % (11.7-14.4)
[2020-10-19 06:30] LABS: ALANINE AMINOTRANSFERASE 52 IU/L (0-55); ALBUMIN 2.4 g/dL (3.5-5.0); ALBUMIN/GLOBULIN RATIO 0.6 (0.8-2.0); ALKALINE PHOSPHATASE 175 IU/L (40-150); ANION GAP 12.2 mmol/L (8-16); BLOOD UREA NITROGEN 43 mg/dL (7-26); BUN/CREATININE RATIO 59 (6-25); CALCIUM 8.4 mg/dL (8.4-10.2); CARBON DIOXIDE 34 mmol/L (22-29); CHLORIDE 99 mmol/L (98-107); CREATININE, SERUM 0.73 mg/dL (0.72-1.25); EST GLOMERULAR FILTRATION RATE > 60 ML/MIN (60-); GLUCOSE 112 mg/dL (74-118); POTASSIUM 4.2 mmol/L (3.5-5.1); SODIUM 141 mmol/L (136-145)
[2020-10-19] MEDS: DOCUSATE SODIUM LIQD 100 MG/10 ML UDC NG SCH ×2 (08:11→15:58)
[2020-10-19] MEDS: ASCORBIC ACID 500 MG TAB PO SCH ×2 (08:11→16:26)
[2020-10-19] MEDS: ZINC SULFATE 220 MG CAP PO SCH (08:11)
[2020-10-19] MEDS: ENOXAPARIN INJ 80 MG/0.8 ML SYR SC SCH ×2 (08:11→21:45)
[2020-10-19] MEDS: FAMOTIDINE 20 MG/2 ML VIAL IV SCH ×2 (08:11→21:45)
[2020-10-19] MEDS: BALSAM PERU/CASTOR OIL 60 GM OINT...G. TP SCH (08:11)
[2020-10-19] MEDS: IBUPROFEN 400 MG TAB PO PRN ×2 (09:00→16:26)
[2020-10-19 09:51] LABS: ABG HCO3 35 mmol/L (22-26); ABG PCO2 50 mmHg (35-45); ABG PH 7.46 (7.35-7.45); ABG PO2 111 mmHg (80-105); ABG TCO2 37
[2020-10-19] MEDS: LACTULOSE SYRUP 20 GM/30 ML UDC NG PRN (11:26)
[2020-10-19] MEDS ORDERED: CITRATE OF MAGNESIA 300ML BOTTLE PO ONE (12:15)
[2020-10-19 17:00] LABS: ABG HCO3 33 mmol/L (22-26); ABG PCO2 46 mmHg (35-45); ABG PH 7.47 (7.35-7.45); ABG PO2 62 mmHg (80-105); ABG TCO2 35
[2020-10-20] VITALS (14 sets, daily range): BP systolic 96–175; BP diastolic 50–75
[2020-10-20] MEDS: PIPER-TAZ 3.375 GM 50 ML IV SCH ×4 (01:00→17:11)
[2020-10-20] MEDS: GENTAMICIN SULFATE 0.3% OP 5 ML BTL OD SCH ×4 (01:51→13:01)
[2020-10-20] MEDS: ALBUTEROL SULFATE HFA 8GM INHALATION AEROSOL INH SCH ×8 (03:40→23:36)
[2020-10-20] MEDS: ACETAMINOPHEN 325 MG TAB PO PRN ×3 (04:44→21:23)
[2020-10-20 05:15] LABS: BASOPHILS % 0.2 % (0.0-1.0); EOSINOPHILS # (AUTO) 0.3 (0.0-0.4); EOSINOPHILS % 1.5 % (0.0-6.0); HEMATOCRIT 24.7 % (38.2-49.6); HEMOGLOBIN 7.8 g/dL (14.0-18.0); LYMPHOCYTES % 5.4 % (18.0-39.1); MEAN CORPUSCULAR HEMOGLOBIN 31.5 pg (28-32); MEAN CORPUSCULAR HGB CONC 31.6 g/dL (31-35); MEAN CORPUSCULAR VOLUME 99.6 fL (81-99); MONOCYTES # (AUTO) 1.4 (0.2-0.8); MONOCYTES % 7.4 % (4.4-11.3); NEUTROPHILS % 83.5 % (38.7-80.0); PLATELET COUNT 426 x10e3/uL (140-360); RED BLOOD COUNT 2.48 x10e6/uL (4.3-5.7); RED CELL DISTRIBUTION WIDTH 16.1 % (11.7-14.4)
[2020-10-20 06:09] LABS: ALANINE AMINOTRANSFERASE 47 IU/L (0-55); ALBUMIN 1.9 g/dL (3.5-5.0); ALBUMIN/GLOBULIN RATIO 0.5 (0.8-2.0); ALKALINE PHOSPHATASE 176 IU/L (40-150); ANION GAP 12.3 mmol/L (8-16); BLOOD UREA NITROGEN 41 mg/dL (7-26); BUN/CREATININE RATIO 61 (6-25); CALCIUM 8.2 mg/dL (8.4-10.2); CARBON DIOXIDE 32 mmol/L (22-29); CHLORIDE 101 mmol/L (98-107); CREATININE, SERUM 0.67 mg/dL (0.72-1.25); EST GLOMERULAR FILTRATION RATE > 60 ML/MIN (60-); GLUCOSE 138 mg/dL (74-118); POTASSIUM 4.3 mmol/L (3.5-5.1); SODIUM 141 mmol/L (136-145)
[2020-10-20] MEDS ORDERED: NOREPINEPHRINE 8 MG/D5W 250 ML 250 ML ONE (07:43)
[2020-10-20] MEDS: ASCORBIC ACID 500 MG TAB PO SCH ×2 (08:21→16:10)
[2020-10-20] MEDS: BALSAM PERU/CASTOR OIL 60 GM OINT...G. TP SCH (08:21)
[2020-10-20] MEDS: FAMOTIDINE 20 MG/2 ML VIAL IV SCH ×2 (08:21→21:23)
[2020-10-20] MEDS: ENOXAPARIN INJ 80 MG/0.8 ML SYR SC SCH ×2 (08:21→21:22)
[2020-10-20] MEDS: ZINC SULFATE 220 MG CAP PO SCH (08:21)
[2020-10-20] MEDS: DOCUSATE SODIUM LIQD 100 MG/10 ML UDC NG SCH ×2 (08:21→16:10)
[2020-10-20] MEDS: MIDAZOLAM HCL 5MG/ML 10ML VIAL 100 ML IV PRN ×2 (09:53→15:15)
[2020-10-20 11:19] LABS: ABG HCO3 34 mmol/L (22-26); ABG PCO2 48 mmHg (35-45); ABG PH 7.45 (7.35-7.45); ABG PO2 72 mmHg (80-105); ABG TCO2 35
[2020-10-20] MEDS: FENTANYL 2000MCG/NS 250 250 ML IV PRN (13:48)
[2020-10-20] MEDS: MIDODRINE HCL 5 MG TABLET NG SCH (15:15)
[2020-10-21] VITALS (21 sets, daily range): BP systolic 90–218; BP diastolic 48–86
[2020-10-21] MEDS: PIPER-TAZ 3.375 GM 50 ML IV SCH ×2 (00:16→05:17)
[2020-10-21] MEDS: ALBUTEROL SULFATE HFA 8GM INHALATION AEROSOL INH SCH ×8 (00:16→23:00)
[2020-10-21] MEDS: FENTANYL 2000MCG/NS 250 250 ML IV PRN (00:26)
[2020-10-21] MEDS: MIDAZOLAM HCL 5MG/ML 10ML VIAL 100 ML IV PRN ×3 (00:27→19:00)
[2020-10-21] MEDS: IBUPROFEN 400 MG TAB PO PRN (03:23)
[2020-10-21 05:40] LABS: BASOPHILS # (AUTO) 0.1 (0.0-0.1); BASOPHILS % 0.3 % (0.0-1.0); EOSINOPHILS # (AUTO) 0.3 (0.0-0.4); EOSINOPHILS % 1.7 % (0.0-6.0); HEMATOCRIT 28.3 % (38.2-49.6); HEMOGLOBIN 8.6 g/dL (14.0-18.0); LYMPHOCYTES % 5.1 % (18.0-39.1); MEAN CORPUSCULAR HGB CONC 30.4 g/dL (31-35); MEAN CORPUSCULAR VOLUME 98.6 fL (81-99); MONOCYTES # (AUTO) 1.1 (0.2-0.8); MONOCYTES % 5.9 % (4.4-11.3); NEUTROPHILS # (AUTO) 16.1 (2.1-6.9); NEUTROPHILS % 84.6 % (38.7-80.0); PLATELET COUNT 404 x10e3/uL (140-360); RED BLOOD COUNT 2.87 x10e6/uL (4.3-5.7); RED CELL DISTRIBUTION WIDTH 16.1 % (11.7-14.4)
[2020-10-21 05:51] LABS: ALANINE AMINOTRANSFERASE 38 IU/L (0-55); ALBUMIN 1.6 g/dL (3.5-5.0); ALBUMIN/GLOBULIN RATIO 0.4 (0.8-2.0); ALKALINE PHOSPHATASE 164 IU/L (40-150); ANION GAP 11.3 mmol/L (8-16); BLOOD UREA NITROGEN 41 mg/dL (7-26); BUN/CREATININE RATIO 60 (6-25); CALCIUM 8.2 mg/dL (8.4-10.2); CARBON DIOXIDE 32 mmol/L (22-29); CHLORIDE 102 mmol/L (98-107); CREATININE, SERUM 0.68 mg/dL (0.72-1.25); EST GLOMERULAR FILTRATION RATE > 60 ML/MIN (60-); GLUCOSE 124 mg/dL (74-118); POTASSIUM 4.3 mmol/L (3.5-5.1); SODIUM 141 mmol/L (136-145)
[2020-10-21] MEDS: BALSAM PERU/CASTOR OIL 60 GM OINT...G. TP SCH (07:52)
[2020-10-21] MEDS: MIDODRINE HCL 5 MG TABLET NG SCH ×3 (08:00→14:53)
[2020-10-21] MEDS ORDERED: SODIUM CHLORIDE 0.9% 250ML 250 ML ONE (08:21)
[2020-10-21 10:45] LABS: ABG PH 7.47 (7.35-7.45)
[2020-10-21 10:46] LABS: ABG HCO3 34 mmol/L (22-26); ABG PCO2 47 mmHg (35-45); ABG PO2 63 mmHg (80-105); ABG TCO2 35
[2020-10-21] MEDS: MEROPENEM 1GRAM 1 GM in SODIUM CHLORIDE 0.9% 100 ML 100 ML IV SCH ×3 (12:10→21:44)
[2020-10-21] MEDS: FAMOTIDINE 20 MG/2 ML VIAL IV SCH ×2 (12:10→21:44)
[2020-10-21] MEDS: ASCORBIC ACID 500 MG TAB PO SCH ×2 (12:10→14:53)
[2020-10-21] MEDS: ENOXAPARIN INJ 80 MG/0.8 ML SYR SC SCH ×2 (12:10→21:44)
[2020-10-21] MEDS: ACETAZOLAMIDE 250 MG TAB PO SCH ×2 (12:10→21:44)
[2020-10-21] MEDS: DOCUSATE SODIUM LIQD 100 MG/10 ML UDC NG SCH ×2 (12:10→14:53)
[2020-10-21] MEDS: ZINC SULFATE 220 MG CAP PO SCH (12:10)
[2020-10-21] MEDS ORDERED: CISATRACURIUM BESYLATE 100 MG in SODIUM CHLORIDE 0.9% 100 ML 50 ML IV STA (14:05)
[2020-10-21] MEDS: ALBUMIN 25% 25GM 100ML 0.25 GM/ML BTL IV SCH ×2 (14:45→21:44)
[2020-10-21] MEDS: VANCOMYCIN 1GM/NS 250 ML 250 ML IV SCH (16:00)
[2020-10-21 16:45] LABS: ABG HCO3 29 mmol/L (22-26); ABG PCO2 60 mmHg (35-45); ABG PO2 85 mmHg (80-105); ABG TCO2 31
[2020-10-21] MEDS ORDERED: ALBUMIN 25% 12.5GM 50ML 200 ML IV ONE (20:54)
[2020-10-22] VITALS (24 sets, daily range): BP systolic 104–221; BP diastolic 31–95
[2020-10-22] MEDS: ALBUTEROL SULFATE HFA 8GM INHALATION AEROSOL INH SCH ×7 (03:00→23:00)
[2020-10-22] MEDS: VANCOMYCIN 1GM/NS 250 ML 250 ML IV SCH ×2 (03:10→16:26)
[2020-10-22 04:48] LABS: BASOPHILS % 0.2 % (0.0-1.0); EOSINOPHILS # (AUTO) 0.3 (0.0-0.4); LYMPHOCYTES # (AUTO) 0.9 (1.0-3.2); LYMPHOCYTES % 5.7 % (18.0-39.1); MEAN CORPUSCULAR HEMOGLOBIN 29.6 pg (28-32); MEAN CORPUSCULAR HGB CONC 29.6 g/dL (31-35); MONOCYTES # (AUTO) 0.9 (0.2-0.8); MONOCYTES % 5.8 % (4.4-11.3); NEUTROPHILS # (AUTO) 13.4 (2.1-6.9); NEUTROPHILS % 84.3 % (38.7-80.0); PLATELET COUNT 359 x10e3/uL (140-360)
[2020-10-22 05:14] LABS: ALANINE AMINOTRANSFERASE 43 IU/L (0-55); ALBUMIN 1.9 g/dL (3.5-5.0); ALBUMIN/GLOBULIN RATIO 0.5 (0.8-2.0); ALKALINE PHOSPHATASE 171 IU/L (40-150); ANION GAP 12.4 mmol/L (8-16); BLOOD UREA NITROGEN 38 mg/dL (7-26); BUN/CREATININE RATIO 60 (6-25); CARBON DIOXIDE 24 mmol/L (22-29); CHLORIDE 108 mmol/L (98-107); CREATININE, SERUM 0.63 mg/dL (0.72-1.25); EST GLOMERULAR FILTRATION RATE > 60 ML/MIN (60-); GLUCOSE 114 mg/dL (74-118); POTASSIUM 4.4 mmol/L (3.5-5.1); SODIUM 140 mmol/L (136-145)
[2020-10-22] MEDS: ALBUMIN 25% 25GM 100ML 0.25 GM/ML BTL IV SCH (05:46)
[2020-10-22] MEDS: MEROPENEM 1GRAM 1 GM in SODIUM CHLORIDE 0.9% 100 ML 100 ML IV SCH ×3 (05:46→22:03)
[2020-10-22] MEDS: MIDODRINE HCL 5 MG TABLET NG SCH ×3 (08:00→16:27)
[2020-10-22] MEDS: BALSAM PERU/CASTOR OIL 60 GM OINT...G. TP SCH (08:38)
[2020-10-22] MEDS: ENOXAPARIN INJ 80 MG/0.8 ML SYR SC SCH ×2 (08:38→22:03)
[2020-10-22] MEDS: FAMOTIDINE 20 MG/2 ML VIAL IV SCH ×2 (08:38→16:27)
[2020-10-22] MEDS: ASCORBIC ACID 500 MG TAB PO SCH ×2 (08:38→16:27)
[2020-10-22] MEDS: DOCUSATE SODIUM LIQD 100 MG/10 ML UDC NG SCH ×2 (08:38→16:27)
[2020-10-22] MEDS: ZINC SULFATE 220 MG CAP PO SCH (08:38)
[2020-10-22] MEDS: FENTANYL 2000MCG/NS 250 250 ML IV PRN (10:33)
[2020-10-22] MEDS ORDERED: PROPOFOL IV EMULSION 10MG/ML 100 ML IV SCH (11:00)
[2020-10-22] MEDS ORDERED: CISATRACURIUM BESYLATE 100 MG in SODIUM CHLORIDE 0.9% 100 ML 50 ML IV PRN (11:15)
[2020-10-22 11:24] LABS: ABG HCO3 26 mmol/L (22-26); ABG PCO2 56 mmHg (35-45); ABG PH 7.27 (7.35-7.45); ABG PO2 86 mmHg (80-105); ABG TCO2 27
[2020-10-22] MEDS: PROPOFOL IV EMULSION 50 ML IV SCH ×2 (11:33→20:45)
[2020-10-22 17:19] LABS: ABG PCO2 52 mmHg (35-45); ABG PO2 78 mmHg (80-105)
[2020-10-22 17:20] LABS: ABG HCO3 25 mmol/L (22-26); ABG TCO2 27
[2020-10-22] MEDS: FENTANYL CITRATE INJ 2,000 MCG in SODIUM CHLORIDE 0.9% 250ML 210 ML IV PRN (21:00)
[2020-10-22] MEDS: MIDAZOLAM HCL 5MG/ML 10ML VIAL 100 ML IV PRN (22:33)
[2020-10-23] VITALS (16 sets, daily range): BP systolic 100–179; BP diastolic 42–74
[2020-10-23] MEDS: ALBUTEROL SULFATE HFA 8GM INHALATION AEROSOL INH SCH ×5 (02:45→22:06)
[2020-10-23] MEDS: VANCOMYCIN 1GM/NS 250 ML 250 ML IV SCH ×2 (04:49→16:57)
[2020-10-23 05:47] LABS: BASOPHILS % 0.3 % (0.0-1.0); EOSINOPHILS # (AUTO) 0.5 (0.0-0.4); EOSINOPHILS % 3.6 % (0.0-6.0); HEMATOCRIT 25.8 % (38.2-49.6); HEMOGLOBIN 7.8 g/dL (14.0-18.0); LYMPHOCYTES # (AUTO) 0.9 (1.0-3.2); LYMPHOCYTES % 6.8 % (18.0-39.1); MEAN CORPUSCULAR HEMOGLOBIN 30.6 pg (28-32); MEAN CORPUSCULAR HGB CONC 30.2 g/dL (31-35); MEAN CORPUSCULAR VOLUME 101.2 fL (81-99); MONOCYTES # (AUTO) 0.8 (0.2-0.8); MONOCYTES % 5.8 % (4.4-11.3); NEUTROPHILS # (AUTO) 10.8 (2.1-6.9); NEUTROPHILS % 80.1 % (38.7-80.0); PLATELET COUNT 368 x10e3/uL (140-360); RED BLOOD COUNT 2.55 x10e6/uL (4.3-5.7); RED CELL DISTRIBUTION WIDTH 15.9 % (11.7-14.4)
[2020-10-23] MEDS: MEROPENEM 1GRAM 1 GM in SODIUM CHLORIDE 0.9% 100 ML 100 ML IV SCH ×3 (06:22→22:59)
[2020-10-23 06:26] LABS: ALANINE AMINOTRANSFERASE 68 IU/L (0-55); ALBUMIN 1.7 g/dL (3.5-5.0); ALBUMIN/GLOBULIN RATIO 0.4 (0.8-2.0); ANION GAP 10.3 mmol/L (8-16); BLOOD UREA NITROGEN 35 mg/dL (7-26); BUN/CREATININE RATIO 60 (6-25); CALCIUM 8.3 mg/dL (8.4-10.2); CARBON DIOXIDE 27 mmol/L (22-29); CHLORIDE 108 mmol/L (98-107); CREATININE, SERUM 0.58 mg/dL (0.72-1.25); EST GLOMERULAR FILTRATION RATE > 60 ML/MIN (60-); GLUCOSE 107 mg/dL (74-118); POTASSIUM 4.3 mmol/L (3.5-5.1); SODIUM 141 mmol/L (136-145)
[2020-10-23 07:08] LABS: ALKALINE PHOSPHATASE 258 IU/L (40-150)
[2020-10-23 07:48] LABS: FREE THYROXINE INDEX 1.3176 (1.4-3.8); THYROID STIMULATING HORMONE 0.756 uIU/mL (0.350-4.940)
[2020-10-23] MEDS: MIDODRINE HCL 5 MG TABLET NG SCH (08:00)
[2020-10-23] MEDS: DOCUSATE SODIUM LIQD 100 MG/10 ML UDC NG SCH ×2 (09:30→16:57)
[2020-10-23] MEDS: ENOXAPARIN INJ 80 MG/0.8 ML SYR SC SCH ×2 (09:30→21:41)
[2020-10-23] MEDS: ZINC SULFATE 220 MG CAP PO SCH (09:30)
[2020-10-23] MEDS: BALSAM PERU/CASTOR OIL 60 GM OINT...G. TP SCH (09:30)
[2020-10-23] MEDS: ASCORBIC ACID 500 MG TAB PO SCH ×2 (09:30→16:57)
[2020-10-23] MEDS: FAMOTIDINE 20 MG/2 ML VIAL IV SCH ×2 (09:30→22:04)
[2020-10-23 09:34] LABS: ABG HCO3 25 mmol/L (22-26); ABG PCO2 51 mmHg (35-45); ABG PO2 80 mmHg (80-105); ABG TCO2 27
[2020-10-23] MEDS ORDERED: ALBUMIN 25% 25GM 100ML 0.25 GM/ML BTL IV SCH (11:00)
[2020-10-23] MEDS: ALBUMIN 25% 25GM 100ML 100 ML IV SCH ×2 (13:29→21:20)
[2020-10-23] MEDS: FUROSEMIDE INJ 10 MG/ML 4 ML VIAL IV SCH ×2 (13:29→22:04)
[2020-10-23] MEDS ORDERED: PROPOFOL IV EMULSION 10 MG/ML 50 ML VIAL IV ONE (13:41)
[2020-10-23] MEDS ORDERED: MIDAZOLAM HCL 5MG/ML 10ML VIAL 100 ML BAG IV ONE (13:41)
[2020-10-23] MEDS ORDERED: FENTANYL 2,000 MCG/250 ML BAG ONE (13:41)
[2020-10-23] MEDS: PROPOFOL IV EMULSION 10MG/ML 100 ML IV SCH (20:57)
[2020-10-24] VITALS (28 sets, daily range): BP systolic 98–207; BP diastolic 48–90
[2020-10-24] MEDS: ALBUTEROL SULFATE HFA 8GM INHALATION AEROSOL INH SCH ×6 (00:20→19:00)
[2020-10-24] MEDS: FENTANYL CITRATE INJ 2,000 MCG in SODIUM CHLORIDE 0.9% 250ML 210 ML IV PRN ×3 (01:20→16:37)
[2020-10-24] MEDS: MIDAZOLAM HCL 50 MG in SODIUM CHLORIDE 0.9% 100 ML 90 ML IV PRN ×2 (02:00→16:37)
[2020-10-24] MEDS: ACETAMINOPHEN 325 MG TAB PO PRN ×2 (02:11→20:25)
[2020-10-24] MEDS: PROPOFOL IV EMULSION 10MG/ML 100 ML IV SCH ×3 (02:12→19:45)
[2020-10-24] MEDS ORDERED: ACETAMINOPHEN 325 MG TAB ONE ×2 (02:16→20:24)
[2020-10-24] MEDS: ALBUMIN 25% 25GM 100ML 100 ML IV SCH (04:00)
[2020-10-24 05:22] LABS: BASOPHILS # (AUTO) 0.1 (0.0-0.1); BASOPHILS % 0.4 % (0.0-1.0); EOSINOPHILS # (AUTO) 0.4 (0.0-0.4); EOSINOPHILS % 3.6 % (0.0-6.0); HEMATOCRIT 23.6 % (38.2-49.6); HEMOGLOBIN 7.2 g/dL (14.0-18.0); LYMPHOCYTES # (AUTO) 1.1 (1.0-3.2); LYMPHOCYTES % 9.5 % (18.0-39.1); MEAN CORPUSCULAR HEMOGLOBIN 29.8 pg (28-32); MEAN CORPUSCULAR HGB CONC 30.5 g/dL (31-35); MEAN CORPUSCULAR VOLUME 97.5 fL (81-99); MONOCYTES # (AUTO) 0.8 (0.2-0.8); MONOCYTES % 6.5 % (4.4-11.3); NEUTROPHILS # (AUTO) 9.1 (2.1-6.9); NEUTROPHILS % 75.8 % (38.7-80.0); PLATELET COUNT 379 x10e3/uL (140-360); RED BLOOD COUNT 2.42 x10e6/uL (4.3-5.7); RED CELL DISTRIBUTION WIDTH 15.8 % (11.7-14.4)
[2020-10-24] MEDS: MEROPENEM 1GRAM 1 GM in SODIUM CHLORIDE 0.9% 100 ML 100 ML IV SCH ×3 (05:30→22:30)
[2020-10-24 05:56] LABS: ALANINE AMINOTRANSFERASE 86 IU/L (0-55); ALBUMIN 2.7 g/dL (3.5-5.0); ALBUMIN/GLOBULIN RATIO 0.7 (0.8-2.0); ALKALINE PHOSPHATASE 313 IU/L (40-150); ANION GAP 13.3 mmol/L (8-16); BLOOD UREA NITROGEN 37 mg/dL (7-26); BUN/CREATININE RATIO 56 (6-25); CALCIUM 8.1 mg/dL (8.4-10.2); CARBON DIOXIDE 28 mmol/L (22-29); CHLORIDE 102 mmol/L (98-107); CREATININE, SERUM 0.66 mg/dL (0.72-1.25); EST GLOMERULAR FILTRATION RATE > 60 ML/MIN (60-); GLUCOSE 134 mg/dL (74-118); POTASSIUM 3.3 mmol/L (3.5-5.1); SODIUM 140 mmol/L (136-145)
[2020-10-24] MEDS: VANCOMYCIN 1GM/NS 250 ML 250 ML IV SCH ×2 (06:37→17:17)
[2020-10-24 08:50] LABS: ABG HCO3 32 mmol/L (22-26); ABG PCO2 44 mmHg (35-45); ABG PH 7.46 (7.35-7.45); ABG PO2 97 mmHg (80-105); ABG TCO2 33
[2020-10-24] MEDS ORDERED: POTASSIUM CHLORIDE 20MEQ/100ML 100 ML IV ONE (09:00)
[2020-10-24] MEDS: ZINC SULFATE 220 MG CAP PO SCH (09:31)
[2020-10-24] MEDS: BALSAM PERU/CASTOR OIL 60 GM OINT...G. TP SCH (09:31)
[2020-10-24] MEDS: DOCUSATE SODIUM LIQD 100 MG/10 ML UDC NG SCH ×2 (09:31→17:17)
[2020-10-24] MEDS: ENOXAPARIN INJ 80 MG/0.8 ML SYR SC SCH (09:31)
[2020-10-24] MEDS: FAMOTIDINE 20 MG/2 ML VIAL IV SCH ×2 (09:31→21:40)
[2020-10-24] MEDS: ASCORBIC ACID 500 MG TAB PO SCH ×2 (09:31→17:17)
[2020-10-24] MEDS ORDERED: SODIUM CHLORIDE 0.9% 250ML 250 ML IV ONE (10:30)
[2020-10-24 14:06] LABS: CLARITY,URINE CLEAR (CLEAR); COLOR,URINE YELLOW (YELLOW); KETONES,URINE NEGATIVE (NEGATIVE); LEUKOCYTE ESTERASE ,URINE NEGATIVE (NEGATIVE); NITRITE,URINE NEGATIVE (NEGATIVE); PROTEIN,URINE DIPSTICK 1+ (NEGATIVE)
[2020-10-24 14:27] LABS: BACTERIA,URINE FEW /HPF; EPITHELIAL CELLS,URINE RARE /LPF; TRANSITIONAL EPI CELLS,URINE RARE; WBC,URINE (MAN) 0-5 /HPF (0-5)
[2020-10-24 16:18] LABS: ABG HCO3 31 mmol/L (22-26); ABG PCO2 42 mmHg (35-45); ABG PH 7.47 (7.35-7.45); ABG PO2 70 mmHg (80-105); ABG TCO2 32
[2020-10-24] MEDS: LABETALOL HCL 5 MG/ML 20ML VIAL IV PRN (17:17)
[2020-10-25] VITALS (22 sets, daily range): BP systolic 101–207; BP diastolic 53–109
[2020-10-25] MEDS: IBUPROFEN 400 MG TAB PO PRN (03:07)
[2020-10-25] MEDS: ALBUTEROL SULFATE HFA 8GM INHALATION AEROSOL INH SCH ×6 (03:55→22:30)
[2020-10-25] MEDS: VANCOMYCIN 1GM/NS 250 ML 250 ML IV SCH ×2 (04:00→15:51)
[2020-10-25] MEDS: MEROPENEM 1GRAM 1 GM in SODIUM CHLORIDE 0.9% 100 ML 100 ML IV SCH ×3 (05:27→21:59)
[2020-10-25 06:00] LABS: BASOPHILS # (AUTO) 0.1 (0.0-0.1); BASOPHILS % 0.4 % (0.0-1.0); EOSINOPHILS # (AUTO) 0.6 (0.0-0.4); EOSINOPHILS % 3.8 % (0.0-6.0); HEMATOCRIT 28.2 % (38.2-49.6); HEMOGLOBIN 8.8 g/dL (14.0-18.0); LYMPHOCYTES # (AUTO) 1.2 (1.0-3.2); LYMPHOCYTES % 8.3 % (18.0-39.1); MEAN CORPUSCULAR HEMOGLOBIN 29.7 pg (28-32); MEAN CORPUSCULAR HGB CONC 31.2 g/dL (31-35); MEAN CORPUSCULAR VOLUME 95.3 fL (81-99); MONOCYTES # (AUTO) 0.9 (0.2-0.8); MONOCYTES % 6.1 % (4.4-11.3); NEUTROPHILS # (AUTO) 11.2 (2.1-6.9); NEUTROPHILS % 76.7 % (38.7-80.0); PLATELET COUNT 336 x10e3/uL (140-360); RED BLOOD COUNT 2.96 x10e6/uL (4.3-5.7); RED CELL DISTRIBUTION WIDTH 17.4 % (11.7-14.4)
[2020-10-25 06:04] LABS: ALANINE AMINOTRANSFERASE 126 IU/L (0-55); ALBUMIN 2.2 g/dL (3.5-5.0); ALBUMIN/GLOBULIN RATIO 0.6 (0.8-2.0); ALKALINE PHOSPHATASE 382 IU/L (40-150); ANION GAP 11.7 mmol/L (8-16); BLOOD UREA NITROGEN 32 mg/dL (7-26); BUN/CREATININE RATIO 54 (6-25); CALCIUM 8.1 mg/dL (8.4-10.2); CARBON DIOXIDE 29 mmol/L (22-29); CHLORIDE 102 mmol/L (98-107); CREATININE, SERUM 0.59 mg/dL (0.72-1.25); EST GLOMERULAR FILTRATION RATE > 60 ML/MIN (60-); GLUCOSE 121 mg/dL (74-118); POTASSIUM 3.7 mmol/L (3.5-5.1); SODIUM 139 mmol/L (136-145)
[2020-10-25 06:19] LABS: INR 1.16; PROTHROMBIN TIME 15.6 seconds (11.9-14.5)
[2020-10-25] MEDS: PROPOFOL IV EMULSION 10MG/ML 100 ML IV SCH ×4 (07:40→18:33)
[2020-10-25] MEDS: ASCORBIC ACID 500 MG TAB PO SCH ×2 (08:47→15:51)
[2020-10-25] MEDS: DOCUSATE SODIUM LIQD 100 MG/10 ML UDC NG SCH ×2 (08:47→15:51)
[2020-10-25] MEDS: BALSAM PERU/CASTOR OIL 60 GM OINT...G. TP SCH (08:47)
[2020-10-25] MEDS: ZINC SULFATE 220 MG CAP PO SCH (08:47)
[2020-10-25] MEDS: FAMOTIDINE 20 MG/2 ML VIAL IV SCH ×2 (08:47→21:26)
[2020-10-25 09:15] LABS: ABG HCO3 31 mmol/L (22-26); ABG PCO2 45 mmHg (35-45); ABG PH 7.45 (7.35-7.45); ABG PO2 74 mmHg (80-105); ABG TCO2 33
[2020-10-25] MEDS: ENALAPRILAT IV INJ 1.25 MG/ML VIAL IV SCH ×4 (09:42→22:04)
[2020-10-25] MEDS: LACTULOSE SYRUP 20 GM/30 ML UDC NG PRN (09:43)
[2020-10-25] MEDS: ENOXAPARIN INJ 80 MG/0.8 ML SYR SC SCH ×2 (10:41→21:26)
[2020-10-25] MEDS: FENTANYL CITRATE INJ 2,000 MCG in SODIUM CHLORIDE 0.9% 250ML 210 ML IV PRN (12:03)
[2020-10-26] VITALS (24 sets, daily range): BP systolic 122–184; BP diastolic 46–83
[2020-10-26] MEDS: LACTULOSE SYRUP 20 GM/30 ML UDC NG PRN
[2020-10-26] MEDS: ACETAMINOPHEN 325 MG TAB PO PRN ×2 (00:01→23:22)
[2020-10-26] MEDS: PROPOFOL IV EMULSION 10MG/ML 100 ML IV SCH ×7 (00:59→21:02)
[2020-10-26] MEDS: ALBUTEROL SULFATE HFA 8GM INHALATION AEROSOL INH SCH ×6 (03:00→21:45)
[2020-10-26] MEDS: VANCOMYCIN 1GM/NS 250 ML 250 ML IV SCH (04:45)
[2020-10-26] MEDS: ENALAPRILAT IV INJ 1.25 MG/ML VIAL IV SCH ×4 (04:45→22:14)
[2020-10-26 05:06] LABS: BASOPHILS # (AUTO) 0.1 (0.0-0.1); BASOPHILS % 0.5 % (0.0-1.0); EOSINOPHILS # (AUTO) 0.7 (0.0-0.4); EOSINOPHILS % 4.3 % (0.0-6.0); HEMATOCRIT 31.1 % (38.2-49.6); HEMOGLOBIN 9.9 g/dL (14.0-18.0); LYMPHOCYTES # (AUTO) 1.3 (1.0-3.2); LYMPHOCYTES % 7.6 % (18.0-39.1); MEAN CORPUSCULAR HEMOGLOBIN 30.3 pg (28-32); MEAN CORPUSCULAR HGB CONC 31.8 g/dL (31-35); MEAN CORPUSCULAR VOLUME 95.1 fL (81-99); MONOCYTES # (AUTO) 1.1 (0.2-0.8); MONOCYTES % 6.4 % (4.4-11.3); NEUTROPHILS # (AUTO) 13.3 (2.1-6.9); NEUTROPHILS % 76.7 % (38.7-80.0); PLATELET COUNT 329 x10e3/uL (140-360); RED BLOOD COUNT 3.27 x10e6/uL (4.3-5.7); RED CELL DISTRIBUTION WIDTH 16.6 % (11.7-14.4)
[2020-10-26 06:12] LABS: ALANINE AMINOTRANSFERASE 137 IU/L (0-55); ALBUMIN/GLOBULIN RATIO 0.4 (0.8-2.0); ALKALINE PHOSPHATASE 408 IU/L (40-150); ANION GAP 13.2 mmol/L (8-16); BLOOD UREA NITROGEN 25 mg/dL (7-26); BUN/CREATININE RATIO 43 (6-25); CALCIUM 8.4 mg/dL (8.4-10.2); CARBON DIOXIDE 30 mmol/L (22-29); CHLORIDE 101 mmol/L (98-107); CREATININE, SERUM 0.58 mg/dL (0.72-1.25); EST GLOMERULAR FILTRATION RATE > 60 ML/MIN (60-); GLUCOSE 126 mg/dL (74-118); POTASSIUM 4.2 mmol/L (3.5-5.1); SODIUM 140 mmol/L (136-145)
[2020-10-26] MEDS: MEROPENEM 1GRAM 1 GM in SODIUM CHLORIDE 0.9% 100 ML 100 ML IV SCH ×2 (06:27→14:38)
[2020-10-26] MEDS: ASCORBIC ACID 500 MG TAB PO SCH ×2 (09:36→17:35)
[2020-10-26] MEDS: ENOXAPARIN INJ 80 MG/0.8 ML SYR SC SCH (09:36)
[2020-10-26] MEDS: DOCUSATE SODIUM LIQD 100 MG/10 ML UDC NG SCH ×2 (09:36→17:35)
[2020-10-26] MEDS: BALSAM PERU/CASTOR OIL 60 GM OINT...G. TP SCH (09:36)
[2020-10-26] MEDS: ZINC SULFATE 220 MG CAP PO SCH (09:36)
[2020-10-26] MEDS: FAMOTIDINE 20 MG/2 ML VIAL IV SCH ×2 (09:36→21:01)
[2020-10-26] MEDS: FENTANYL CITRATE INJ 2,000 MCG in SODIUM CHLORIDE 0.9% 250ML 210 ML IV PRN (11:22)
[2020-10-26] MEDS: LABETALOL HCL 5 MG/ML 20ML VIAL IV PRN ×2 (11:55→18:22)
[2020-10-26] MEDS ORDERED: HEPARIN 25,000 UNIT 25,000 UNIT in DEXTROSE 5% 250ML 250 ML IV SCH (12:15)
[2020-10-26 12:25] LABS: ABG HCO3 33 mmol/L (22-26); ABG PCO2 51 mmHg (35-45); ABG PH 7.41 (7.35-7.45); ABG PO2 70 mmHg (80-105); ABG TCO2 34
[2020-10-26] MEDS: FUROSEMIDE INJ 10 MG/ML 4 ML VIAL IV SCH ×2 (12:53→21:01)
[2020-10-26] MEDS ORDERED: ALBUMIN 25% 25GM 100ML 0.25 GM/ML BTL IV SCH (13:00)
[2020-10-26] MEDS: ALBUMIN 25% 25GM 100ML 100 ML IV SCH ×2 (13:12→22:14)
[2020-10-26] MEDS: HEPARIN 25,000 UNIT 1,400 UNIT in DEXTROSE 5% 250ML 250 ML IV SCH (15:24)
[2020-10-27] VITALS (25 sets, daily range): BP systolic 120–182; BP diastolic 60–77
[2020-10-27] MEDS: ALBUTEROL SULFATE HFA 8GM INHALATION AEROSOL INH SCH ×6 (02:05→22:50)
[2020-10-27] MEDS: ENALAPRILAT IV INJ 1.25 MG/ML VIAL IV SCH ×4 (03:59→22:12)
[2020-10-27] MEDS: ALBUMIN 25% 25GM 100ML 100 ML IV SCH (05:17)
[2020-10-27 05:43] LABS: BASOPHILS # (AUTO) 0.1 (0.0-0.1); BASOPHILS % 0.5 % (0.0-1.0); EOSINOPHILS # (AUTO) 0.8 (0.0-0.4); EOSINOPHILS % 5.3 % (0.0-6.0); HEMATOCRIT 30.1 % (38.2-49.6); HEMOGLOBIN 9.3 g/dL (14.0-18.0); LYMPHOCYTES # (AUTO) 1.7 (1.0-3.2); LYMPHOCYTES % 11.4 % (18.0-39.1); MEAN CORPUSCULAR HEMOGLOBIN 29.1 pg (28-32); MEAN CORPUSCULAR HGB CONC 30.9 g/dL (31-35); MEAN CORPUSCULAR VOLUME 94.1 fL (81-99); MONOCYTES # (AUTO) 0.9 (0.2-0.8); MONOCYTES % 6.4 % (4.4-11.3); NEUTROPHILS # (AUTO) 10.4 (2.1-6.9); NEUTROPHILS % 71.4 % (38.7-80.0); PLATELET COUNT 328 x10e3/uL (140-360); RED CELL DISTRIBUTION WIDTH 16.4 % (11.7-14.4)
[2020-10-27 06:07] LABS: ALANINE AMINOTRANSFERASE 111 IU/L (0-55); ALBUMIN 2.4 g/dL (3.5-5.0); ALBUMIN/GLOBULIN RATIO 0.5 (0.8-2.0); ALKALINE PHOSPHATASE 341 IU/L (40-150); ANION GAP 14.9 mmol/L (8-16); BLOOD UREA NITROGEN 31 mg/dL (7-26); BUN/CREATININE RATIO 56 (6-25); CALCIUM 8.5 mg/dL (8.4-10.2); CARBON DIOXIDE 31 mmol/L (22-29); CHLORIDE 98 mmol/L (98-107); CREATININE, SERUM 0.55 mg/dL (0.72-1.25); EST GLOMERULAR FILTRATION RATE > 60 ML/MIN (60-); GLUCOSE 107 mg/dL (74-118); POTASSIUM 3.9 mmol/L (3.5-5.1); SODIUM 140 mmol/L (136-145)
[2020-10-27] MEDS: DOCUSATE SODIUM LIQD 100 MG/10 ML UDC NG SCH ×2 (08:34→17:53)
[2020-10-27] MEDS: ASCORBIC ACID 500 MG TAB PO SCH ×2 (08:34→17:53)
[2020-10-27] MEDS: FAMOTIDINE 20 MG/2 ML VIAL IV SCH ×2 (08:34→22:11)
[2020-10-27] MEDS: FUROSEMIDE INJ 10 MG/ML 4 ML VIAL IV SCH ×2 (08:34→22:11)
[2020-10-27] MEDS: ZINC SULFATE 220 MG CAP PO SCH (08:34)
[2020-10-27] MEDS: BALSAM PERU/CASTOR OIL 60 GM OINT...G. TP SCH (08:35)
[2020-10-27] MEDS: PROPOFOL IV EMULSION 10MG/ML 100 ML IV SCH ×3 (08:36→23:30)
[2020-10-27] MEDS: HEPARIN 25,000 UNIT 1,400 UNIT in DEXTROSE 5% 250ML 250 ML IV SCH (08:36)
[2020-10-27 09:10] LABS: ABG HCO3 34 mmol/L (22-26); ABG PCO2 50 mmHg (35-45); ABG PH 7.45 (7.35-7.45); ABG PO2 77 mmHg (80-105); ABG TCO2 36
[2020-10-27] MEDS ORDERED: PROPOFOL IV EMULSION 10 MG/ML 20 ML VIAL ONE (12:31)
[2020-10-27] MEDS ORDERED: ROCURONIUM BROMIDE 10 MG/ML 5ML VIAL IV ONE (12:31)
[2020-10-27] MEDS ORDERED: MIDAZOLAM HCL 5 MG/ML VIAL ONE (13:04)
[2020-10-27] MEDS ORDERED: FENTANYL CITRATE/PF 100MCG/2 ML INJ ONE (13:04)
[2020-10-27] MEDS ORDERED: BUPIVACAINE HCL 0.5% INJ 30 ML VIAL INJ ONE (15:29)
[2020-10-27] MEDS: FENTANYL CITRATE INJ 2,000 MCG in SODIUM CHLORIDE 0.9% 250ML 210 ML IV PRN (23:00)
[2020-10-28] VITALS (20 sets, daily range): BP systolic 135–209; BP diastolic 61–86
[2020-10-28] MEDS: ALBUTEROL SULFATE HFA 8GM INHALATION AEROSOL INH SCH ×6 (02:14→22:30)
[2020-10-28] MEDS: PROPOFOL IV EMULSION 10MG/ML 100 ML IV SCH ×3 (03:27→20:14)
[2020-10-28] MEDS: ENALAPRILAT IV INJ 1.25 MG/ML VIAL IV SCH ×4 (04:27→21:37)
[2020-10-28 06:31] LABS: BASOPHILS # (AUTO) 0.1 (0.0-0.1); BASOPHILS % 0.4 % (0.0-1.0); EOSINOPHILS % 6.9 % (0.0-6.0); HEMATOCRIT 29.7 % (38.2-49.6); HEMOGLOBIN 9.1 g/dL (14.0-18.0); LYMPHOCYTES # (AUTO) 1.5 (1.0-3.2); LYMPHOCYTES % 10.4 % (18.0-39.1); MEAN CORPUSCULAR HEMOGLOBIN 29.1 pg (28-32); MEAN CORPUSCULAR HGB CONC 30.6 g/dL (31-35); MEAN CORPUSCULAR VOLUME 94.9 fL (81-99); MONOCYTES % 6.7 % (4.4-11.3); NEUTROPHILS # (AUTO) 10.3 (2.1-6.9); NEUTROPHILS % 72.9 % (38.7-80.0); PLATELET COUNT 345 x10e3/uL (140-360); RED BLOOD COUNT 3.13 x10e6/uL (4.3-5.7); RED CELL DISTRIBUTION WIDTH 16.1 % (11.7-14.4)
[2020-10-28 06:42] LABS: ANION GAP 15.6 mmol/L (8-16); BLOOD UREA NITROGEN 26 mg/dL (7-26); BUN/CREATININE RATIO 47 (6-25); CALCIUM 8.5 mg/dL (8.4-10.2); CARBON DIOXIDE 32 mmol/L (22-29); CHLORIDE 96 mmol/L (98-107); CREATININE, SERUM 0.55 mg/dL (0.72-1.25); EST GLOMERULAR FILTRATION RATE > 60 ML/MIN (60-); GLUCOSE 110 mg/dL (74-118); POTASSIUM 3.6 mmol/L (3.5-5.1); SODIUM 140 mmol/L (136-145)
[2020-10-28] MEDS: ASCORBIC ACID 500 MG TAB PO SCH ×2 (08:56→17:47)
[2020-10-28] MEDS: FUROSEMIDE INJ 10 MG/ML 4 ML VIAL IV SCH ×2 (08:56→21:37)
[2020-10-28] MEDS: FAMOTIDINE 20 MG/2 ML VIAL IV SCH ×2 (08:56→21:37)
[2020-10-28] MEDS: ZINC SULFATE 220 MG CAP PO SCH (08:56)
[2020-10-28] MEDS: DOCUSATE SODIUM LIQD 100 MG/10 ML UDC NG SCH ×2 (08:56→17:47)
[2020-10-28] MEDS: BALSAM PERU/CASTOR OIL 60 GM OINT...G. TP SCH (08:57)
[2020-10-28 09:31] LABS: ABG HCO3 36 mmol/L (22-26); ABG PCO2 49 mmHg (35-45); ABG PH 7.47 (7.35-7.45); ABG PO2 91 mmHg (80-105); ABG TCO2 37
[2020-10-28] MEDS: FENTANYL CITRATE INJ 2,000 MCG in SODIUM CHLORIDE 0.9% 250ML 210 ML IV PRN (09:39)
[2020-10-28] MEDS: LABETALOL HCL 5 MG/ML 20ML VIAL IV PRN (09:39)
[2020-10-28] MEDS: ACETAMINOPHEN 325 MG TAB PO PRN ×2 (11:01→22:03)
[2020-10-28] MEDS ORDERED: CITRATE OF MAGNESIA 300ML BOTTLE PO NR (13:00)
[2020-10-28 14:01] LABS: CLARITY,URINE CLEAR (CLEAR); COLOR,URINE YELLOW (YELLOW); KETONES,URINE 1+ (NEGATIVE); LEUKOCYTE ESTERASE ,URINE NEGATIVE (NEGATIVE); NITRITE,URINE NEGATIVE (NEGATIVE); PROTEIN,URINE DIPSTICK 2+ (NEGATIVE); URINE UROBILINOGEN 1 mg/dL (0.2 - 1)
[2020-10-28 14:47] LABS: BACTERIA,URINE FEW /HPF; WBC,URINE (MAN) 0-5 /HPF (0-5)
[2020-10-28] MEDS: VANCOMYCIN 1GM/NS 250 ML 250 ML IV SCH (14:53)
[2020-10-28] MEDS: MEROPENEM 1GM 100 ML IV SCH ×2 (14:53→21:37)
[2020-10-28] MEDS: HEPARIN 25,000 UNIT 1,400 UNIT in DEXTROSE 5% 250ML 250 ML IV SCH (14:56)
[2020-10-29] VITALS (23 sets, daily range): BP systolic 104–168; BP diastolic 40–85
[2020-10-29] MEDS: PROPOFOL IV EMULSION 10MG/ML 100 ML IV SCH ×2 (01:10→20:45)
[2020-10-29] MEDS: VANCOMYCIN 1GM/NS 250 ML 250 ML IV SCH ×2 (01:21→13:51)
[2020-10-29] MEDS: LABETALOL HCL 5 MG/ML 20ML VIAL IV PRN (02:46)
[2020-10-29] MEDS: ALBUTEROL SULFATE HFA 8GM INHALATION AEROSOL INH SCH ×6 (02:50→22:10)
[2020-10-29] MEDS: ENALAPRILAT IV INJ 1.25 MG/ML VIAL IV SCH ×4 (04:02→22:26)
[2020-10-29] MEDS: MEROPENEM 1GM 100 ML IV SCH ×3 (05:37→22:25)
[2020-10-29] MEDS: IBUPROFEN 400 MG TAB PO PRN (06:26)
[2020-10-29 06:42] LABS: BASOPHILS % 0.2 % (0.0-1.0); EOSINOPHILS # (AUTO) 0.6 (0.0-0.4); EOSINOPHILS % 3.6 % (0.0-6.0); HEMATOCRIT 28.8 % (38.2-49.6); HEMOGLOBIN 9.2 g/dL (14.0-18.0); LYMPHOCYTES # (AUTO) 1.4 (1.0-3.2); LYMPHOCYTES % 8.9 % (18.0-39.1); MEAN CORPUSCULAR HEMOGLOBIN 29.7 pg (28-32); MEAN CORPUSCULAR HGB CONC 31.9 g/dL (31-35); MEAN CORPUSCULAR VOLUME 92.9 fL (81-99); MONOCYTES % 6.2 % (4.4-11.3); NEUTROPHILS # (AUTO) 12.2 (2.1-6.9); NEUTROPHILS % 79.3 % (38.7-80.0); PLATELET COUNT 384 x10e3/uL (140-360); RED CELL DISTRIBUTION WIDTH 15.8 % (11.7-14.4)
[2020-10-29 07:26] LABS: ALANINE AMINOTRANSFERASE 62 IU/L (0-55); ALBUMIN/GLOBULIN RATIO 0.4 (0.8-2.0); ALKALINE PHOSPHATASE 290 IU/L (40-150); ANION GAP 14.1 mmol/L (8-16); BLOOD UREA NITROGEN 23 mg/dL (7-26); BUN/CREATININE RATIO 43 (6-25); CALCIUM 8.5 mg/dL (8.4-10.2); CARBON DIOXIDE 33 mmol/L (22-29); CHLORIDE 94 mmol/L (98-107); CREATININE, SERUM 0.54 mg/dL (0.72-1.25); EST GLOMERULAR FILTRATION RATE > 60 ML/MIN (60-); GLUCOSE 144 mg/dL (74-118); POTASSIUM 3.1 mmol/L (3.5-5.1); SODIUM 138 mmol/L (136-145)
[2020-10-29] MEDS: PRAZOSIN HCL 1 MG CAP PO SCH ×2 (09:00→22:27)
[2020-10-29] MEDS: POTASSIUM CHLORIDE 20MEQ/100ML 100 ML IV SCH ×2 (09:33→12:47)
[2020-10-29 09:42] LABS: ABG HCO3 38 mmol/L (22-26); ABG PCO2 47 mmHg (35-45); ABG PH 7.51 (7.35-7.45); ABG PO2 103 mmHg (80-105); ABG TCO2 39
[2020-10-29] MEDS: DOCUSATE SODIUM LIQD 100 MG/10 ML UDC NG SCH ×2 (09:52→16:18)
[2020-10-29] MEDS: FUROSEMIDE INJ 10 MG/ML 4 ML VIAL IV SCH ×2 (09:52→22:25)
[2020-10-29] MEDS: ASCORBIC ACID 500 MG TAB PO SCH ×2 (09:52→16:18)
[2020-10-29] MEDS: FAMOTIDINE 20 MG/2 ML VIAL IV SCH ×2 (09:52→22:25)
[2020-10-29] MEDS: ZINC SULFATE 220 MG CAP PO SCH (09:52)
[2020-10-29] MEDS: BALSAM PERU/CASTOR OIL 60 GM OINT...G. TP SCH (09:53)
[2020-10-29] MEDS: HEPARIN 25,000 UNIT 1,400 UNIT in DEXTROSE 5% 250ML 250 ML IV SCH (09:58)
[2020-10-29] MEDS ORDERED: FENTANYL 2,000 MCG/250 ML BAG ONE (12:26)
[2020-10-29] MEDS ORDERED: PROPOFOL IV EMULSION 10MG/ML 100ML BTL ONE (12:26)
[2020-10-30] VITALS (23 sets, daily range): BP systolic 101–157; BP diastolic 43–70
[2020-10-30] MEDS: VANCOMYCIN 1GM/NS 250 ML 250 ML IV SCH ×2 (01:11→12:42)
[2020-10-30] MEDS: ENALAPRILAT IV INJ 1.25 MG/ML VIAL IV SCH ×4 (04:30→22:48)
[2020-10-30] MEDS: PROPOFOL IV EMULSION 10MG/ML 100 ML IV SCH ×3 (04:37→20:25)
[2020-10-30 05:16] LABS: BASOPHILS # (AUTO) 0.1 (0.0-0.1); BASOPHILS % 0.4 % (0.0-1.0); EOSINOPHILS # (AUTO) 0.9 (0.0-0.4); EOSINOPHILS % 6.5 % (0.0-6.0); HEMATOCRIT 27.7 % (38.2-49.6); HEMOGLOBIN 8.5 g/dL (14.0-18.0); LYMPHOCYTES # (AUTO) 1.7 (1.0-3.2); LYMPHOCYTES % 12.6 % (18.0-39.1); MEAN CORPUSCULAR HEMOGLOBIN 28.6 pg (28-32); MEAN CORPUSCULAR HGB CONC 30.7 g/dL (31-35); MEAN CORPUSCULAR VOLUME 93.3 fL (81-99); MONOCYTES # (AUTO) 1.1 (0.2-0.8); MONOCYTES % 7.8 % (4.4-11.3); NEUTROPHILS # (AUTO) 9.6 (2.1-6.9); NEUTROPHILS % 70.9 % (38.7-80.0); PLATELET COUNT 419 x10e3/uL (140-360); RED BLOOD COUNT 2.97 x10e6/uL (4.3-5.7); RED CELL DISTRIBUTION WIDTH 15.6 % (11.7-14.4)
[2020-10-30] MEDS ORDERED: SODIUM CHLORIDE 0.9% 250ML 250 ML ONE (05:31)
[2020-10-30 05:56] LABS: ALANINE AMINOTRANSFERASE 54 IU/L (0-55); ALBUMIN 1.8 g/dL (3.5-5.0); ALBUMIN/GLOBULIN RATIO 0.4 (0.8-2.0); ALKALINE PHOSPHATASE 228 IU/L (40-150); ANION GAP 13.2 mmol/L (8-16); BLOOD UREA NITROGEN 22 mg/dL (7-26); BUN/CREATININE RATIO 42 (6-25); CALCIUM 7.9 mg/dL (8.4-10.2); CARBON DIOXIDE 33 mmol/L (22-29); CHLORIDE 96 mmol/L (98-107); CREATININE, SERUM 0.52 mg/dL (0.72-1.25); EST GLOMERULAR FILTRATION RATE > 60 ML/MIN (60-); GLUCOSE 116 mg/dL (74-118); POTASSIUM 3.2 mmol/L (3.5-5.1); SODIUM 139 mmol/L (136-145)
[2020-10-30] MEDS: ALBUTEROL SULFATE HFA 8GM INHALATION AEROSOL INH SCH ×5 (07:00→22:45)
[2020-10-30] MEDS: MEROPENEM 1GM 100 ML IV SCH ×3 (08:28→22:55)
[2020-10-30] MEDS: PRAZOSIN HCL 1 MG CAP PO SCH ×2 (09:00→22:55)
[2020-10-30] MEDS: ACETAZOLAMIDE SODIUM 500 MG/VIAL IV SCH ×2 (09:00→22:48)
[2020-10-30 09:20] LABS: ABG HCO3 37 mmol/L (22-26); ABG PCO2 56 mmHg (35-45); ABG PH 7.43 (7.35-7.45); ABG PO2 96 mmHg (80-105); ABG TCO2 38
[2020-10-30] MEDS: BALSAM PERU/CASTOR OIL 60 GM OINT...G. TP SCH (09:52)
[2020-10-30] MEDS: FAMOTIDINE 20 MG/2 ML VIAL IV SCH ×2 (10:28→22:48)
[2020-10-30] MEDS: ASCORBIC ACID 500 MG TAB PO SCH ×2 (10:28→17:56)
[2020-10-30] MEDS: ZINC SULFATE 220 MG CAP PO SCH (10:28)
[2020-10-30] MEDS: POTASSIUM CHLORIDE 20MEQ/100ML 100 ML IV SCH ×2 (10:28→12:42)
[2020-10-30] MEDS: DOCUSATE SODIUM LIQD 100 MG/10 ML UDC NG SCH ×2 (10:28→17:56)
[2020-10-30] MEDS: HEPARIN 25,000 UNIT 1,400 UNIT in DEXTROSE 5% 250ML 250 ML IV SCH ×2 (17:57→20:27)
[2020-10-30] MEDS: FENTANYL 2000MCG/NS 250 250 ML IV SCH (21:25)
[2020-10-31] VITALS (29 sets, daily range): BP systolic 102–158; BP diastolic 44–70
[2020-10-31] MEDS: VANCOMYCIN 1GM/NS 250 ML 250 ML IV SCH ×2 (00:46→16:20)
[2020-10-31] MEDS: PROPOFOL IV EMULSION 10MG/ML 100 ML IV SCH ×4 (00:47→13:53)
[2020-10-31] MEDS: ALBUTEROL SULFATE HFA 8GM INHALATION AEROSOL INH SCH ×6 (03:20→21:45)
[2020-10-31] MEDS: ENALAPRILAT IV INJ 1.25 MG/ML VIAL IV SCH ×4 (04:54→21:55)
[2020-10-31 04:58] LABS: BASOPHILS % 0.3 % (0.0-1.0); EOSINOPHILS % 7.2 % (0.0-6.0); HEMOGLOBIN 8.6 g/dL (14.0-18.0); LYMPHOCYTES # (AUTO) 1.9 (1.0-3.2); LYMPHOCYTES % 13.1 % (18.0-39.1); MEAN CORPUSCULAR HEMOGLOBIN 28.8 pg (28-32); MEAN CORPUSCULAR HGB CONC 30.7 g/dL (31-35); MEAN CORPUSCULAR VOLUME 93.6 fL (81-99); MONOCYTES # (AUTO) 1.4 (0.2-0.8); MONOCYTES % 9.7 % (4.4-11.3); NEUTROPHILS # (AUTO) 9.7 (2.1-6.9); NEUTROPHILS % 67.8 % (38.7-80.0); PLATELET COUNT 483 x10e3/uL (140-360); RED BLOOD COUNT 2.99 x10e6/uL (4.3-5.7); RED CELL DISTRIBUTION WIDTH 15.5 % (11.7-14.4)
[2020-10-31] MEDS: MEROPENEM 1GM 100 ML IV SCH ×3 (05:12→21:55)
[2020-10-31 05:17] LABS: ALANINE AMINOTRANSFERASE 54 IU/L (0-55); ALBUMIN 1.9 g/dL (3.5-5.0); ALBUMIN/GLOBULIN RATIO 0.4 (0.8-2.0); ALKALINE PHOSPHATASE 235 IU/L (40-150); ANION GAP 12.7 mmol/L (8-16); BLOOD UREA NITROGEN 16 mg/dL (7-26); BUN/CREATININE RATIO 30 (6-25); CALCIUM 8.4 mg/dL (8.4-10.2); CARBON DIOXIDE 30 mmol/L (22-29); CHLORIDE 99 mmol/L (98-107); CREATININE, SERUM 0.54 mg/dL (0.72-1.25); EST GLOMERULAR FILTRATION RATE > 60 ML/MIN (60-); GLUCOSE 127 mg/dL (74-118); POTASSIUM 3.7 mmol/L (3.5-5.1); SODIUM 138 mmol/L (136-145)
[2020-10-31] MEDS: PRAZOSIN HCL 1 MG CAP PO SCH ×2 (09:00→21:54)
[2020-10-31 09:33] LABS: ABG HCO3 33 mmol/L (22-26); ABG PCO2 51 mmHg (35-45); ABG PH 7.42 (7.35-7.45); ABG PO2 97 mmHg (80-105); ABG TCO2 34
[2020-10-31] MEDS: BALSAM PERU/CASTOR OIL 60 GM OINT...G. TP SCH (09:54)
[2020-10-31] MEDS: ASCORBIC ACID 500 MG TAB PO SCH ×2 (09:54→16:57)
[2020-10-31] MEDS: ZINC SULFATE 220 MG CAP PO SCH (09:54)
[2020-10-31] MEDS: FAMOTIDINE 20 MG/2 ML VIAL IV SCH ×2 (09:54→21:53)
[2020-10-31] MEDS: DOCUSATE SODIUM LIQD 100 MG/10 ML UDC NG SCH ×2 (09:54→16:57)
[2020-10-31] MEDS: FENTANYL 2000MCG/NS 250 250 ML IV SCH (19:15)
[2020-11-01] VITALS (26 sets, daily range): BP systolic 109–169; BP diastolic 46–87
[2020-11-01] MEDS: VANCOMYCIN 1GM/NS 250 ML 250 ML IV SCH ×2 (01:22→11:36)
[2020-11-01] MEDS: ALBUTEROL SULFATE HFA 8GM INHALATION AEROSOL INH SCH ×6 (02:12→23:00)
[2020-11-01] MEDS: PROPOFOL IV EMULSION 10MG/ML 100 ML IV SCH ×4 (03:57→20:00)
[2020-11-01] MEDS: LABETALOL HCL 5 MG/ML 20ML VIAL IV PRN (03:58)
[2020-11-01] MEDS: ENALAPRILAT IV INJ 1.25 MG/ML VIAL IV SCH ×4 (04:47→22:00)
[2020-11-01] MEDS: MEROPENEM 1GM 100 ML IV SCH ×3 (06:18→21:12)
[2020-11-01 06:23] LABS: BASOPHILS # (AUTO) 0.1 (0.0-0.1); BASOPHILS % 0.5 % (0.0-1.0); EOSINOPHILS # (AUTO) 0.7 (0.0-0.4); EOSINOPHILS % 5.5 % (0.0-6.0); HEMATOCRIT 27.9 % (38.2-49.6); HEMOGLOBIN 8.8 g/dL (14.0-18.0); LYMPHOCYTES # (AUTO) 1.6 (1.0-3.2); LYMPHOCYTES % 12.6 % (18.0-39.1); MEAN CORPUSCULAR HEMOGLOBIN 29.8 pg (28-32); MEAN CORPUSCULAR HGB CONC 31.5 g/dL (31-35); MEAN CORPUSCULAR VOLUME 94.6 fL (81-99); MONOCYTES # (AUTO) 1.1 (0.2-0.8); MONOCYTES % 9.2 % (4.4-11.3); NEUTROPHILS # (AUTO) 8.6 (2.1-6.9); NEUTROPHILS % 69.5 % (38.7-80.0); PLATELET COUNT 579 x10e3/uL (140-360); RED BLOOD COUNT 2.95 x10e6/uL (4.3-5.7); RED CELL DISTRIBUTION WIDTH 15.5 % (11.7-14.4)
[2020-11-01 07:08] LABS: ALANINE AMINOTRANSFERASE 41 IU/L (0-55); ALBUMIN 1.9 g/dL (3.5-5.0); ALBUMIN/GLOBULIN RATIO 0.3 (0.8-2.0); ALKALINE PHOSPHATASE 192 IU/L (40-150); ANION GAP 14.4 mmol/L (8-16); BLOOD UREA NITROGEN 14 mg/dL (7-26); BUN/CREATININE RATIO 27 (6-25); CALCIUM 8.1 mg/dL (8.4-10.2); CARBON DIOXIDE 27 mmol/L (22-29); CHLORIDE 97 mmol/L (98-107); CREATININE, SERUM 0.52 mg/dL (0.72-1.25); EST GLOMERULAR FILTRATION RATE > 60 ML/MIN (60-); GLUCOSE 166 mg/dL (74-118); POTASSIUM 3.4 mmol/L (3.5-5.1); SODIUM 135 mmol/L (136-145)
[2020-11-01] MEDS ORDERED: HEPARIN 25,000 UNIT DRIP IV ONE (08:48)
[2020-11-01] MEDS: FAMOTIDINE 20 MG/2 ML VIAL IV SCH ×2 (08:54→21:11)
[2020-11-01] MEDS: DOCUSATE SODIUM LIQD 100 MG/10 ML UDC NG SCH ×2 (08:54→16:21)
[2020-11-01] MEDS: ZINC SULFATE 220 MG CAP PO SCH (08:55)
[2020-11-01] MEDS: PRAZOSIN HCL 1 MG CAP PO SCH ×2 (08:55→21:11)
[2020-11-01] MEDS: ASCORBIC ACID 500 MG TAB PO SCH ×2 (08:55→16:21)
[2020-11-01] MEDS: BALSAM PERU/CASTOR OIL 60 GM OINT...G. TP SCH (08:55)
[2020-11-01] MEDS ORDERED: HEPARIN SOD/SOD CHLORIDE 1,000 ML IV PRN (10:00)
[2020-11-01 10:13] LABS: ABG HCO3 31 mmol/L (22-26); ABG PCO2 53 mmHg (35-45); ABG PH 7.38 (7.35-7.45); ABG PO2 70 mmHg (80-105); ABG TCO2 33
[2020-11-01] MEDS: HEPARIN 25,000 UNIT 1,400 UNIT in DEXTROSE 5% 250ML 250 ML IV SCH (10:22)
[2020-11-01] MEDS: FENTANYL 2000MCG/NS 250 250 ML IV SCH (16:43)
[2020-11-02] VITALS (30 sets, daily range): BP systolic 107–188; BP diastolic 47–78
[2020-11-02] MEDS: VANCOMYCIN 1GM/NS 250 ML 250 ML IV SCH ×2 (00:30→12:03)
[2020-11-02] MEDS: ALBUTEROL SULFATE HFA 8GM INHALATION AEROSOL INH SCH ×6 (02:10→22:00)
[2020-11-02] MEDS: PROPOFOL IV EMULSION 10MG/ML 100 ML IV SCH ×4 (04:23→23:53)
[2020-11-02] MEDS: ENALAPRILAT IV INJ 1.25 MG/ML VIAL IV SCH ×4 (04:38→22:00)
[2020-11-02] MEDS: HEPARIN 25,000 UNIT 1,400 UNIT in DEXTROSE 5% 250ML 250 ML IV SCH (04:42)
[2020-11-02] MEDS: MEROPENEM 1GM 100 ML IV SCH ×3 (06:12→21:48)
[2020-11-02 06:32] LABS: ALANINE AMINOTRANSFERASE 37 IU/L (0-55); ALBUMIN 1.8 g/dL (3.5-5.0); ALBUMIN/GLOBULIN RATIO 0.4 (0.8-2.0); ALKALINE PHOSPHATASE 169 IU/L (40-150); ANION GAP 9.7 mmol/L (8-16); BLOOD UREA NITROGEN 18 mg/dL (7-26); BUN/CREATININE RATIO 41 (6-25); CALCIUM 8.1 mg/dL (8.4-10.2); CARBON DIOXIDE 33 mmol/L (22-29); CHLORIDE 100 mmol/L (98-107); CREATININE, SERUM 0.44 mg/dL (0.72-1.25); EST GLOMERULAR FILTRATION RATE > 60 ML/MIN (60-); GLUCOSE 143 mg/dL (74-118); POTASSIUM 3.7 mmol/L (3.5-5.1); SODIUM 139 mmol/L (136-145)
[2020-11-02 06:55] LABS: BASOPHILS # (AUTO) 0.1 (0.0-0.1); BASOPHILS % 0.5 % (0.0-1.0); EOSINOPHILS # (AUTO) 0.9 (0.0-0.4); EOSINOPHILS % 6.9 % (0.0-6.0); HEMATOCRIT 28.1 % (38.2-49.6); HEMOGLOBIN 8.4 g/dL (14.0-18.0); LYMPHOCYTES # (AUTO) 1.8 (1.0-3.2); LYMPHOCYTES % 13.6 % (18.0-39.1); MEAN CORPUSCULAR HEMOGLOBIN 28.8 pg (28-32); MEAN CORPUSCULAR HGB CONC 29.9 g/dL (31-35); MEAN CORPUSCULAR VOLUME 96.2 fL (81-99); MONOCYTES # (AUTO) 1.4 (0.2-0.8); MONOCYTES % 10.4 % (4.4-11.3); NEUTROPHILS # (AUTO) 8.5 (2.1-6.9); NEUTROPHILS % 65.1 % (38.7-80.0); PLATELET COUNT 638 x10e3/uL (140-360); RED BLOOD COUNT 2.92 x10e6/uL (4.3-5.7); RED CELL DISTRIBUTION WIDTH 15.6 % (11.7-14.4)
[2020-11-02] MEDS: FAMOTIDINE 20 MG/2 ML VIAL IV SCH ×2 (08:06→21:47)
[2020-11-02] MEDS: BALSAM PERU/CASTOR OIL 60 GM OINT...G. TP SCH (08:07)
[2020-11-02] MEDS: DOCUSATE SODIUM LIQD 100 MG/10 ML UDC NG SCH ×2 (08:07→16:29)
[2020-11-02] MEDS: ZINC SULFATE 220 MG CAP PO SCH (08:07)
[2020-11-02] MEDS: PRAZOSIN HCL 1 MG CAP PO SCH ×2 (08:07→21:48)
[2020-11-02] MEDS: ASCORBIC ACID 500 MG TAB PO SCH ×2 (08:07→16:29)
[2020-11-02 08:51] LABS: ABG HCO3 36 mmol/L (22-26); ABG PCO2 60 mmHg (35-45); ABG PH 7.38 (7.35-7.45); ABG PO2 88 mmHg (80-105); ABG TCO2 37
[2020-11-02] MEDS ORDERED: ALBUMIN 25% 25GM 100ML 0.25 GM/ML BTL IV SCH (09:30)
[2020-11-02] MEDS: ALBUMIN 25% 25GM 100ML 100 ML IV SCH ×2 (11:29→20:20)
[2020-11-02] MEDS: ACETAZOLAMIDE 500 MG CAP PO SCH ×2 (13:02→21:47)
[2020-11-02] MEDS: LABETALOL HCL 5 MG/ML 20ML VIAL IV PRN (17:12)
[2020-11-02] MEDS: FENTANYL 2000MCG/NS 250 250 ML IV SCH (19:15)
[2020-11-02] MEDS: HEPARIN 25,000 UNIT 25,000 UNIT in DEXTROSE 5% 250ML 250 ML IV SCH (21:00)
[2020-11-02] MEDS: ACETAMINOPHEN 325 MG TAB PO PRN (23:53)
[2020-11-03] VITALS (30 sets, daily range): BP systolic 98–158; BP diastolic 45–72
[2020-11-03] MEDS: VANCOMYCIN 1GM/NS 250 ML 250 ML IV SCH (01:15)
[2020-11-03] MEDS: ALBUTEROL SULFATE HFA 8GM INHALATION AEROSOL INH SCH ×5 (02:00→19:20)
[2020-11-03] MEDS: ALBUMIN 25% 25GM 100ML 100 ML IV SCH (03:45)
[2020-11-03] MEDS: ENALAPRILAT IV INJ 1.25 MG/ML VIAL IV SCH ×4 (03:51→22:00)
[2020-11-03] MEDS: PROPOFOL IV EMULSION 10MG/ML 100 ML IV SCH ×4 (05:21→23:38)
[2020-11-03 06:05] LABS: BASOPHILS # (AUTO) 0.1 (0.0-0.1); BASOPHILS % 0.5 % (0.0-1.0); EOSINOPHILS # (AUTO) 0.5 (0.0-0.4); EOSINOPHILS % 3.6 % (0.0-6.0); HEMATOCRIT 26.8 % (38.2-49.6); HEMOGLOBIN 8.1 g/dL (14.0-18.0); LYMPHOCYTES # (AUTO) 1.7 (1.0-3.2); LYMPHOCYTES % 11.7 % (18.0-39.1); MEAN CORPUSCULAR HEMOGLOBIN 29.1 pg (28-32); MEAN CORPUSCULAR HGB CONC 30.2 g/dL (31-35); MEAN CORPUSCULAR VOLUME 96.4 fL (81-99); MONOCYTES # (AUTO) 1.5 (0.2-0.8); NEUTROPHILS # (AUTO) 10.4 (2.1-6.9); NEUTROPHILS % 70.3 % (38.7-80.0); PLATELET COUNT 619 x10e3/uL (140-360); RED BLOOD COUNT 2.78 x10e6/uL (4.3-5.7); RED CELL DISTRIBUTION WIDTH 15.8 % (11.7-14.4)
[2020-11-03] MEDS: MEROPENEM 1GM 100 ML IV SCH (06:10)
[2020-11-03 06:29] LABS: ALANINE AMINOTRANSFERASE 27 IU/L (0-55); ALBUMIN 2.7 g/dL (3.5-5.0); ALBUMIN/GLOBULIN RATIO 0.6 (0.8-2.0); ALKALINE PHOSPHATASE 166 IU/L (40-150); ANION GAP 12.6 mmol/L (8-16); BLOOD UREA NITROGEN 12 mg/dL (7-26); BUN/CREATININE RATIO 22 (6-25); CALCIUM 8.5 mg/dL (8.4-10.2); CARBON DIOXIDE 29 mmol/L (22-29); CHLORIDE 102 mmol/L (98-107); CREATININE, SERUM 0.54 mg/dL (0.72-1.25); EST GLOMERULAR FILTRATION RATE > 60 ML/MIN (60-); GLUCOSE 141 mg/dL (74-118); POTASSIUM 3.6 mmol/L (3.5-5.1); SODIUM 140 mmol/L (136-145)
[2020-11-03 08:56] LABS: ABG PCO2 57 mmHg (35-45); ABG PH 7.36 (7.35-7.45); ABG PO2 110 mmHg (80-105)
[2020-11-03 08:57] LABS: ABG HCO3 32 mmol/L (22-26); ABG TCO2 33
[2020-11-03] MEDS: FAMOTIDINE 20 MG/2 ML VIAL IV SCH ×2 (09:53→21:00)
[2020-11-03] MEDS: ZINC SULFATE 220 MG CAP PO SCH (09:54)
[2020-11-03] MEDS: DOCUSATE SODIUM LIQD 100 MG/10 ML UDC NG SCH ×2 (09:54→17:03)
[2020-11-03] MEDS: ASCORBIC ACID 500 MG TAB PO SCH ×2 (09:54→17:03)
[2020-11-03] MEDS: PRAZOSIN HCL 1 MG CAP PO SCH ×2 (09:54→21:00)
[2020-11-03] MEDS: BALSAM PERU/CASTOR OIL 60 GM OINT...G. TP SCH (11:49)
[2020-11-03] MEDS: HEPARIN 25,000 UNIT 25,000 UNIT in DEXTROSE 5% 250ML 250 ML IV SCH (16:55)
[2020-11-04] VITALS (25 sets, daily range): BP systolic 94–172; BP diastolic 44–83
[2020-11-04] MEDS: ENALAPRILAT IV INJ 1.25 MG/ML VIAL IV SCH ×4 (04:12→22:28)
[2020-11-04 05:56] LABS: BASOPHILS # (AUTO) 0.1 (0.0-0.1); BASOPHILS % 0.5 % (0.0-1.0); EOSINOPHILS # (AUTO) 0.8 (0.0-0.4); EOSINOPHILS % 6.4 % (0.0-6.0); HEMATOCRIT 26.4 % (38.2-49.6); LYMPHOCYTES # (AUTO) 1.4 (1.0-3.2); LYMPHOCYTES % 11.9 % (18.0-39.1); MEAN CORPUSCULAR HEMOGLOBIN 28.9 pg (28-32); MEAN CORPUSCULAR HGB CONC 30.3 g/dL (31-35); MEAN CORPUSCULAR VOLUME 95.3 fL (81-99); MONOCYTES # (AUTO) 1.3 (0.2-0.8); MONOCYTES % 10.3 % (4.4-11.3); NEUTROPHILS # (AUTO) 8.1 (2.1-6.9); NEUTROPHILS % 66.2 % (38.7-80.0); PLATELET COUNT 626 x10e3/uL (140-360); RED BLOOD COUNT 2.77 x10e6/uL (4.3-5.7); RED CELL DISTRIBUTION WIDTH 15.9 % (11.7-14.4)
[2020-11-04] MEDS: PROPOFOL IV EMULSION 10MG/ML 100 ML IV SCH ×3 (06:04→20:15)
[2020-11-04 06:11] LABS: ALANINE AMINOTRANSFERASE 27 IU/L (0-55); ALBUMIN 2.2 g/dL (3.5-5.0); ALBUMIN/GLOBULIN RATIO 0.4 (0.8-2.0); ALKALINE PHOSPHATASE 154 IU/L (40-150); ANION GAP 10.4 mmol/L (8-16); BLOOD UREA NITROGEN 17 mg/dL (7-26); BUN/CREATININE RATIO 33 (6-25); CALCIUM 8.5 mg/dL (8.4-10.2); CARBON DIOXIDE 29 mmol/L (22-29); CHLORIDE 104 mmol/L (98-107); CREATININE, SERUM 0.52 mg/dL (0.72-1.25); EST GLOMERULAR FILTRATION RATE > 60 ML/MIN (60-); GLUCOSE 137 mg/dL (74-118); POTASSIUM 3.4 mmol/L (3.5-5.1); SODIUM 140 mmol/L (136-145)
[2020-11-04 06:30] LABS: INR 1.22; PROTHROMBIN TIME 16.2 seconds (11.9-14.5)
[2020-11-04] MEDS ORDERED: PHYTONADIONE 10 MG/ML AMP IV ONE (07:00)
[2020-11-04] MEDS ORDERED: PHYTONADIONE IV ONE ×2 (07:30→10:00)
[2020-11-04] MEDS ORDERED: SODIUM CHLORIDE 0.9% IV ONE ×2 (07:30→10:00)
[2020-11-04] MEDS: FAMOTIDINE 20 MG/2 ML VIAL IV SCH ×2 (09:03→21:00)
[2020-11-04] MEDS: DOCUSATE SODIUM LIQD 100 MG/10 ML UDC NG SCH ×2 (09:04→16:32)
[2020-11-04] MEDS: PRAZOSIN HCL 1 MG CAP PO SCH ×2 (09:04→21:00)
[2020-11-04] MEDS: BALSAM PERU/CASTOR OIL 60 GM OINT...G. TP SCH (09:05)
[2020-11-04 10:18] LABS: ABG HCO3 31 mmol/L (22-26); ABG PCO2 49 mmHg (35-45); ABG PH 7.42 (7.35-7.45); ABG PO2 123 mmHg (80-105); ABG TCO2 33
[2020-11-04] MEDS: IBUPROFEN 400 MG TAB PO PRN (10:22)
[2020-11-04] MEDS ORDERED: MIDAZOLAM HCL 2 MG/2 ML VIAL ONE (12:35)
[2020-11-04] MEDS ORDERED: KETAMINE HCL INJ 50 MG/ML 10 ML VIAL ONE (12:35)
[2020-11-04] MEDS ORDERED: CLINDAMYCIN PHOS 900MG/ 50ML 50 ML IV ONE (13:00)
[2020-11-05] VITALS (26 sets, daily range): BP systolic 103–185; BP diastolic 54–101
[2020-11-05] MEDS: ENALAPRILAT IV INJ 1.25 MG/ML VIAL IV SCH ×4 (04:55→23:20)
[2020-11-05] MEDS: PROPOFOL IV EMULSION 10MG/ML 100 ML IV SCH ×4 (04:56→18:26)
[2020-11-05 06:13] LABS: BASOPHILS # (AUTO) 0.1 (0.0-0.1); BASOPHILS % 0.8 % (0.0-1.0); EOSINOPHILS # (AUTO) 0.8 (0.0-0.4); EOSINOPHILS % 6.4 % (0.0-6.0); HEMATOCRIT 27.1 % (38.2-49.6); HEMOGLOBIN 8.2 g/dL (14.0-18.0); LYMPHOCYTES # (AUTO) 1.8 (1.0-3.2); LYMPHOCYTES % 15.3 % (18.0-39.1); MEAN CORPUSCULAR HEMOGLOBIN 28.6 pg (28-32); MEAN CORPUSCULAR HGB CONC 30.3 g/dL (31-35); MEAN CORPUSCULAR VOLUME 94.4 fL (81-99); MONOCYTES # (AUTO) 1.2 (0.2-0.8); MONOCYTES % 10.7 % (4.4-11.3); NEUTROPHILS # (AUTO) 7.2 (2.1-6.9); NEUTROPHILS % 61.7 % (38.7-80.0); PLATELET COUNT 670 x10e3/uL (140-360); RED BLOOD COUNT 2.87 x10e6/uL (4.3-5.7); RED CELL DISTRIBUTION WIDTH 16.2 % (11.7-14.4)
[2020-11-05 07:07] LABS: ALANINE AMINOTRANSFERASE 28 IU/L (0-55); ALBUMIN 2.3 g/dL (3.5-5.0); ALBUMIN/GLOBULIN RATIO 0.5 (0.8-2.0); ALKALINE PHOSPHATASE 158 IU/L (40-150); ANION GAP 12.3 mmol/L (8-16); BLOOD UREA NITROGEN 19 mg/dL (7-26); BUN/CREATININE RATIO 37 (6-25); CALCIUM 8.4 mg/dL (8.4-10.2); CARBON DIOXIDE 29 mmol/L (22-29); CHLORIDE 103 mmol/L (98-107); CREATININE, SERUM 0.51 mg/dL (0.72-1.25); EST GLOMERULAR FILTRATION RATE > 60 ML/MIN (60-); GLUCOSE 99 mg/dL (74-118); POTASSIUM 3.3 mmol/L (3.5-5.1); SODIUM 141 mmol/L (136-145)
[2020-11-05] MEDS: DOCUSATE SODIUM LIQD 100 MG/10 ML UDC NG SCH ×2 (09:00→16:59)
[2020-11-05] MEDS: PRAZOSIN HCL 1 MG CAP PO SCH ×2 (09:00→21:37)
[2020-11-05] MEDS: FAMOTIDINE 20 MG/2 ML VIAL IV SCH ×2 (09:05→21:37)
[2020-11-05] MEDS: BALSAM PERU/CASTOR OIL 60 GM OINT...G. TP SCH (09:06)
[2020-11-05] MEDS ORDERED: HEPARIN 25,000 UNIT 1,400 UNIT in DEXTROSE 5% 250ML 250 ML IV SCH (10:15)
[2020-11-05] MEDS ORDERED: PROPOFOL IV EMULSION 100 ML IV ONE (10:26)
[2020-11-05 11:32] LABS: BAND NEUTROPHILS % (MANUAL) 1 %; EOSINOPHILS % (MANUAL) 4 % (0-7); LYMPHOCYTES % (MANUAL) 16 % (19-48); METAMYELOCYTES % (MANUAL) 1 % (0-0); MONOCYTES % (MANUAL) 3 % (3.4-9.0); MYELOCYTES % (MANUAL) 1 % (0-0); NEUTROPHILS % (MANUAL) 69 % (40-74); PROMYELOCYTES % (MANUAL) 2 % (0-0)
[2020-11-05 11:33] LABS: ANISOCYTOSIS SLIGHT; HYPOCHROMASIA SLIGHT
[2020-11-05 11:34] LABS: HELMET CELLS RARE; PLATELET ESTIMATE MODERATELY INCREASED; PLATELET MORPHOLOGY COMMENT NORMAL; RBC MORPHOLOGY COMMENT ABNORMAL
[2020-11-05] MEDS ORDERED: KCL 20 MEQ PACKET/ ORAL SOLN NG ONE (16:00)
[2020-11-05] MEDS: APIXABAN 5 MG TABLET PEG SCH (17:02)
[2020-11-06] VITALS (24 sets, daily range): BP systolic 100–181; BP diastolic 48–78
[2020-11-06] MEDS: PROPOFOL IV EMULSION 10MG/ML 100 ML IV SCH ×3 (00:50→21:19)
[2020-11-06] MEDS: ENALAPRILAT IV INJ 1.25 MG/ML VIAL IV SCH ×4 (05:04→22:42)
[2020-11-06 06:10] LABS: BASOPHILS # (AUTO) 0.1 (0.0-0.1); BASOPHILS % 0.6 % (0.0-1.0); EOSINOPHILS # (AUTO) 0.7 (0.0-0.4); EOSINOPHILS % 6.3 % (0.0-6.0); HEMATOCRIT 27.6 % (38.2-49.6); HEMOGLOBIN 8.4 g/dL (14.0-18.0); LYMPHOCYTES # (AUTO) 1.9 (1.0-3.2); LYMPHOCYTES % 16.1 % (18.0-39.1); MEAN CORPUSCULAR HEMOGLOBIN 29.2 pg (28-32); MEAN CORPUSCULAR HGB CONC 30.4 g/dL (31-35); MEAN CORPUSCULAR VOLUME 95.8 fL (81-99); MONOCYTES # (AUTO) 1.5 (0.2-0.8); NEUTROPHILS # (AUTO) 6.9 (2.1-6.9); NEUTROPHILS % 59.2 % (38.7-80.0); PLATELET COUNT 622 x10e3/uL (140-360); RED BLOOD COUNT 2.88 x10e6/uL (4.3-5.7); RED CELL DISTRIBUTION WIDTH 16.1 % (11.7-14.4)
[2020-11-06 06:56] LABS: ALANINE AMINOTRANSFERASE 30 IU/L (0-55); ALBUMIN 2.3 g/dL (3.5-5.0); ALBUMIN/GLOBULIN RATIO 0.5 (0.8-2.0); ALKALINE PHOSPHATASE 141 IU/L (40-150); ANION GAP 10.5 mmol/L (8-16); BLOOD UREA NITROGEN 22 mg/dL (7-26); BUN/CREATININE RATIO 44 (6-25); CALCIUM 8.6 mg/dL (8.4-10.2); CARBON DIOXIDE 33 mmol/L (22-29); CHLORIDE 102 mmol/L (98-107); EST GLOMERULAR FILTRATION RATE > 60 ML/MIN (60-); GLUCOSE 129 mg/dL (74-118); POTASSIUM 3.5 mmol/L (3.5-5.1); SODIUM 142 mmol/L (136-145)
[2020-11-06] MEDS: IRON SUCROSE 100 MG in SODIUM CHLORIDE 0.9% 100 ML 100 ML IV SCH (08:31)
[2020-11-06] MEDS: FAMOTIDINE 20 MG/2 ML VIAL IV SCH ×2 (08:31→21:48)
[2020-11-06] MEDS: BALSAM PERU/CASTOR OIL 60 GM OINT...G. TP SCH (08:32)
[2020-11-06] MEDS: APIXABAN 5 MG TABLET PEG SCH ×2 (08:32→16:25)
[2020-11-06] MEDS: DOCUSATE SODIUM LIQD 100 MG/10 ML UDC NG SCH ×2 (08:32→16:25)
[2020-11-06] MEDS: PRAZOSIN HCL 1 MG CAP PO SCH ×2 (08:33→21:48)
[2020-11-06 08:44] LABS: ABG HCO3 35 mmol/L (22-26); ABG PCO2 52 mmHg (35-45); ABG PH 7.44 (7.35-7.45); ABG PO2 93 mmHg (80-105); ABG TCO2 37
[2020-11-06 11:53] LABS: ABG PH 7.48 (7.35-7.45)
[2020-11-06 11:54] LABS: ABG PCO2 46 mmHg (35-45)
[2020-11-06 11:55] LABS: ABG HCO3 34 mmol/L (22-26); ABG PO2 74 mmHg (80-105); ABG TCO2 35
[2020-11-06] MEDS ORDERED: PROPOFOL IV EMULSION 10 MG/ML 50 ML VIAL IV ONE (13:56)
[2020-11-06] MEDS ORDERED: FENTANYL 2,000 MCG/250 ML BAG ONE (13:56)
[2020-11-06] MEDS ORDERED: MIDAZOLAM HCL 5MG/ML 10ML VIAL 100 ML BAG IV ONE (13:56)
[2020-11-06] MEDS ORDERED: PROPOFOL IV EMULSION 10MG/ML 100ML BTL ONE (13:56)
[2020-11-06] MEDS ORDERED: LACTATED RINGER'S 500 ML IV ONE (18:00)
[2020-11-07] VITALS (25 sets, daily range): BP systolic 107–193; BP diastolic 52–81
[2020-11-07] MEDS: PROPOFOL IV EMULSION 10MG/ML 100 ML IV SCH (02:48)
[2020-11-07] MEDS: ENALAPRILAT IV INJ 1.25 MG/ML VIAL IV SCH ×4 (04:00→22:00)
[2020-11-07 05:48] LABS: BASOPHILS # (AUTO) 0.1 (0.0-0.1); BASOPHILS % 0.5 % (0.0-1.0); EOSINOPHILS # (AUTO) 0.7 (0.0-0.4); EOSINOPHILS % 5.9 % (0.0-6.0); HEMATOCRIT 26.7 % (38.2-49.6); HEMOGLOBIN 8.1 g/dL (14.0-18.0); LYMPHOCYTES # (AUTO) 1.8 (1.0-3.2); LYMPHOCYTES % 15.8 % (18.0-39.1); MEAN CORPUSCULAR HEMOGLOBIN 29.1 pg (28-32); MEAN CORPUSCULAR HGB CONC 30.3 g/dL (31-35); MONOCYTES # (AUTO) 1.5 (0.2-0.8); MONOCYTES % 13.5 % (4.4-11.3); NEUTROPHILS # (AUTO) 6.8 (2.1-6.9); NEUTROPHILS % 59.7 % (38.7-80.0); PLATELET COUNT 595 x10e3/uL (140-360); RED BLOOD COUNT 2.78 x10e6/uL (4.3-5.7); RED CELL DISTRIBUTION WIDTH 16.1 % (11.7-14.4)
[2020-11-07 06:02] LABS: ALANINE AMINOTRANSFERASE 26 IU/L (0-55); ALBUMIN/GLOBULIN RATIO 0.4 (0.8-2.0); ALKALINE PHOSPHATASE 109 IU/L (40-150); ANION GAP 11.3 mmol/L (8-16); BLOOD UREA NITROGEN 23 mg/dL (7-26); BUN/CREATININE RATIO 48 (6-25); CALCIUM 8.1 mg/dL (8.4-10.2); CARBON DIOXIDE 34 mmol/L (22-29); CHLORIDE 101 mmol/L (98-107); CREATININE, SERUM 0.48 mg/dL (0.72-1.25); EST GLOMERULAR FILTRATION RATE > 60 ML/MIN (60-); GLUCOSE 133 mg/dL (74-118); POTASSIUM 3.3 mmol/L (3.5-5.1); SODIUM 143 mmol/L (136-145)
[2020-11-07] MEDS: IRON SUCROSE 100 MG in SODIUM CHLORIDE 0.9% 100 ML 100 ML IV SCH (10:12)
[2020-11-07] MEDS: FAMOTIDINE 20 MG/2 ML VIAL IV SCH ×2 (10:12→16:51)
[2020-11-07] MEDS: DOCUSATE SODIUM LIQD 100 MG/10 ML UDC NG SCH ×2 (10:12→16:51)
[2020-11-07] MEDS: APIXABAN 5 MG TABLET PEG SCH ×2 (10:13→16:51)
[2020-11-07] MEDS: BALSAM PERU/CASTOR OIL 60 GM OINT...G. TP SCH (10:13)
[2020-11-07] MEDS: PRAZOSIN HCL 1 MG CAP PO SCH ×2 (10:13→21:00)
[2020-11-08] VITALS (20 sets, daily range): BP systolic 97–162; BP diastolic 46–79
[2020-11-08] MEDS: ENALAPRILAT IV INJ 1.25 MG/ML VIAL IV SCH ×4 (04:00→20:18)
[2020-11-08] MEDS ORDERED: DIATRIZOATE MEGL/DIATRIZOA SOD 30 ML BTL PO ONE (04:56)
[2020-11-08] MEDS ORDERED: ACETAMINOPHEN 325 MG TAB PO PRN (05:15)
[2020-11-08] MEDS ORDERED: POTASSIUM CHLORIDE 20MEQ/100ML 200 ML IV ONE (08:35)
[2020-11-08] MEDS: BALSAM PERU/CASTOR OIL 60 GM OINT...G. TP SCH (08:43)
[2020-11-08] MEDS: DOCUSATE SODIUM LIQD 100 MG/10 ML UDC NG SCH ×2 (08:43→17:18)
[2020-11-08] MEDS: FAMOTIDINE 20 MG/2 ML VIAL IV SCH ×2 (08:43→19:47)
[2020-11-08] MEDS: IRON SUCROSE 100 MG in SODIUM CHLORIDE 0.9% 100 ML 100 ML IV SCH (08:43)
[2020-11-08] MEDS: APIXABAN 5 MG TABLET PEG SCH ×2 (08:43→17:18)
[2020-11-08] MEDS: PRAZOSIN HCL 1 MG CAP PO SCH ×2 (08:43→19:46)
[2020-11-08] MEDS ORDERED: PROPOFOL IV EMULSION 10 MG/ML 50 ML VIAL IV ONE (13:08)
[2020-11-08] MEDS: PROPOFOL IV EMULSION 10MG/ML 100 ML IV SCH (14:45)
[2020-11-09] VITALS (19 sets, daily range): BP systolic 120–163; BP diastolic 55–83
[2020-11-09] MEDS: LABETALOL HCL 5 MG/ML 20ML VIAL IV PRN (00:19)
[2020-11-09] MEDS: ENALAPRILAT IV INJ 1.25 MG/ML VIAL IV SCH ×4 (03:53→21:37)
[2020-11-09 05:34] LABS: BASOPHILS # (AUTO) 0.1 (0.0-0.1); BASOPHILS % 0.6 % (0.0-1.0); EOSINOPHILS # (AUTO) 0.5 (0.0-0.4); EOSINOPHILS % 4.1 % (0.0-6.0); HEMATOCRIT 27.5 % (38.2-49.6); HEMOGLOBIN 8.3 g/dL (14.0-18.0); LYMPHOCYTES % 15.6 % (18.0-39.1); MEAN CORPUSCULAR HEMOGLOBIN 28.5 pg (28-32); MEAN CORPUSCULAR HGB CONC 30.2 g/dL (31-35); MEAN CORPUSCULAR VOLUME 94.5 fL (81-99); MONOCYTES # (AUTO) 1.2 (0.2-0.8); MONOCYTES % 9.4 % (4.4-11.3); NEUTROPHILS # (AUTO) 8.6 (2.1-6.9); NEUTROPHILS % 66.7 % (38.7-80.0); PLATELET COUNT 546 x10e3/uL (140-360); RED BLOOD COUNT 2.91 x10e6/uL (4.3-5.7); RED CELL DISTRIBUTION WIDTH 16.1 % (11.7-14.4)
[2020-11-09 06:04] LABS: ALANINE AMINOTRANSFERASE 23 IU/L (0-55); ALBUMIN 2.2 g/dL (3.5-5.0); ALBUMIN/GLOBULIN RATIO 0.4 (0.8-2.0); ALKALINE PHOSPHATASE 115 IU/L (40-150); ANION GAP 14.9 mmol/L (8-16); BLOOD UREA NITROGEN 19 mg/dL (7-26); BUN/CREATININE RATIO 35 (6-25); CALCIUM 8.6 mg/dL (8.4-10.2); CARBON DIOXIDE 33 mmol/L (22-29); CHLORIDE 100 mmol/L (98-107); CREATININE, SERUM 0.55 mg/dL (0.72-1.25); EST GLOMERULAR FILTRATION RATE > 60 ML/MIN (60-); GLUCOSE 113 mg/dL (74-118); POTASSIUM 3.9 mmol/L (3.5-5.1); SODIUM 144 mmol/L (136-145)
[2020-11-09] MEDS: DOCUSATE SODIUM LIQD 100 MG/10 ML UDC NG SCH ×2 (08:25→18:20)
[2020-11-09] MEDS: FAMOTIDINE 20 MG/2 ML VIAL IV SCH ×2 (08:25→20:10)
[2020-11-09] MEDS: APIXABAN 5 MG TABLET PEG SCH ×2 (08:25→18:20)
[2020-11-09] MEDS: PRAZOSIN HCL 1 MG CAP PO SCH ×2 (08:25→20:10)
[2020-11-09] MEDS: BALSAM PERU/CASTOR OIL 60 GM OINT...G. TP SCH (08:25)
[2020-11-09] MEDS: IRON SUCROSE 100 MG in SODIUM CHLORIDE 0.9% 100 ML 100 ML IV SCH (08:25)
[2020-11-09] MEDS ORDERED: LACTATED RINGER'S 1,000 ML INJ ONE (10:15)
[2020-11-09] MEDS: PROPOFOL IV EMULSION 10MG/ML 100 ML IV SCH (14:45)
[2020-11-10] VITALS (24 sets, daily range): BP systolic 105–174; BP diastolic 46–90
[2020-11-10] MEDS: ENALAPRILAT IV INJ 1.25 MG/ML VIAL IV SCH ×4 (04:02→21:16)
[2020-11-10] MEDS: METOCLOPRAMIDE HCL 10 MG/2ML VIAL IV SCH ×4 (05:24→23:01)
[2020-11-10 05:52] LABS: BASOPHILS # (AUTO) 0.1 (0.0-0.1); BASOPHILS % 0.5 % (0.0-1.0); EOSINOPHILS # (AUTO) 0.6 (0.0-0.4); EOSINOPHILS % 4.3 % (0.0-6.0); HEMATOCRIT 27.4 % (38.2-49.6); HEMOGLOBIN 8.4 g/dL (14.0-18.0); LYMPHOCYTES # (AUTO) 2.2 (1.0-3.2); LYMPHOCYTES % 16.8 % (18.0-39.1); MEAN CORPUSCULAR HEMOGLOBIN 29.2 pg (28-32); MEAN CORPUSCULAR HGB CONC 30.7 g/dL (31-35); MEAN CORPUSCULAR VOLUME 95.1 fL (81-99); MONOCYTES # (AUTO) 1.4 (0.2-0.8); MONOCYTES % 10.1 % (4.4-11.3); NEUTROPHILS # (AUTO) 8.8 (2.1-6.9); NEUTROPHILS % 65.8 % (38.7-80.0); PLATELET COUNT 475 x10e3/uL (140-360); RED BLOOD COUNT 2.88 x10e6/uL (4.3-5.7)
[2020-11-10 06:07] LABS: AMYLASE 53 U/L (25-125); LIPASE 47 U/L (8-78)
[2020-11-10 06:09] LABS: ALANINE AMINOTRANSFERASE 21 IU/L (0-55); ALBUMIN 2.3 g/dL (3.5-5.0); ALBUMIN/GLOBULIN RATIO 0.5 (0.8-2.0); ALKALINE PHOSPHATASE 104 IU/L (40-150); ANION GAP 14.3 mmol/L (8-16); BLOOD UREA NITROGEN 15 mg/dL (7-26); BUN/CREATININE RATIO 29 (6-25); CALCIUM 8.4 mg/dL (8.4-10.2); CARBON DIOXIDE 32 mmol/L (22-29); CHLORIDE 100 mmol/L (98-107); CREATININE, SERUM 0.52 mg/dL (0.72-1.25); EST GLOMERULAR FILTRATION RATE > 60 ML/MIN (60-); GLUCOSE 122 mg/dL (74-118); POTASSIUM 3.3 mmol/L (3.5-5.1); SODIUM 143 mmol/L (136-145)
[2020-11-10] MEDS: FAMOTIDINE 20 MG/2 ML VIAL IV SCH ×2 (07:47→20:36)
[2020-11-10] MEDS: PRAZOSIN HCL 1 MG CAP PO SCH ×2 (07:47→20:37)
[2020-11-10] MEDS: APIXABAN 5 MG TABLET PEG SCH ×2 (07:47→15:37)
[2020-11-10] MEDS: IRON SUCROSE 100 MG in SODIUM CHLORIDE 0.9% 100 ML 100 ML IV SCH (07:47)
[2020-11-10] MEDS: DOCUSATE SODIUM LIQD 100 MG/10 ML UDC NG SCH ×2 (07:47→15:37)
[2020-11-10] MEDS ORDERED: POTASSIUM CHLORIDE 20MEQ/100ML 100 ML IV ONE (09:45)
[2020-11-10] MEDS ORDERED: LACTATED RINGER'S 500 ML INJ ONE (10:30)
[2020-11-10 14:08] LABS: CLARITY,URINE TURBID (CLEAR); COLOR,URINE RED (YELLOW); KETONES,URINE 2+ (NEGATIVE); LEUKOCYTE ESTERASE ,URINE NEGATIVE (NEGATIVE); NITRITE,URINE NEGATIVE (NEGATIVE); PROTEIN,URINE DIPSTICK 2+ (NEGATIVE)
[2020-11-10 14:09] LABS: AMORPHOUS SEDIMENT,URINE FEW (FEW); BACTERIA,URINE RARE /HPF; RBC,URINE >50 /HPF (0-5); WBC,URINE (MAN) 0-5 /HPF (0-5)
[2020-11-10] MEDS: PROPOFOL IV EMULSION 10MG/ML 100 ML IV SCH (14:45)
[2020-11-10] MEDS: VANCOMYCIN 1GM/NS 250 ML 250 ML IV SCH ×2 (15:35→23:01)
[2020-11-10] MEDS: MEROPENEM 1GM 100 ML IV SCH ×2 (15:35→20:36)
[2020-11-11] VITALS (17 sets, daily range): BP systolic 102–171; BP diastolic 63–96
[2020-11-11] MEDS: MEROPENEM 1GM 100 ML IV SCH ×2 (01:09→08:55)
[2020-11-11] MEDS: ENALAPRILAT IV INJ 1.25 MG/ML VIAL IV SCH ×4 (03:32→21:20)
[2020-11-11] MEDS: METOCLOPRAMIDE HCL 10 MG/2ML VIAL IV SCH ×4 (05:18→23:29)
[2020-11-11 06:25] LABS: BASOPHILS # (AUTO) 0.1 (0.0-0.1); BASOPHILS % 0.6 % (0.0-1.0); EOSINOPHILS # (AUTO) 0.5 (0.0-0.4); EOSINOPHILS % 3.2 % (0.0-6.0); HEMATOCRIT 28.7 % (38.2-49.6); HEMOGLOBIN 8.7 g/dL (14.0-18.0); LYMPHOCYTES # (AUTO) 1.8 (1.0-3.2); LYMPHOCYTES % 12.1 % (18.0-39.1); MEAN CORPUSCULAR HGB CONC 30.3 g/dL (31-35); MEAN CORPUSCULAR VOLUME 95.7 fL (81-99); MONOCYTES # (AUTO) 1.3 (0.2-0.8); MONOCYTES % 9.1 % (4.4-11.3); NEUTROPHILS # (AUTO) 10.5 (2.1-6.9); NEUTROPHILS % 73.1 % (38.7-80.0); PLATELET COUNT 453 x10e3/uL (140-360); RED CELL DISTRIBUTION WIDTH 16.8 % (11.7-14.4)
[2020-11-11] MEDS ORDERED: SODIUM CHLORIDE 0.9% 50ML 50 ML ONE (07:05)
[2020-11-11] MEDS ORDERED: IOPAMIDOL 370 MG/ML 200 ML INFUS..BTL INJ ONE (07:05)
[2020-11-11] MEDS: DOCUSATE SODIUM LIQD 100 MG/10 ML UDC NG SCH ×2 (08:55→18:49)
[2020-11-11] MEDS: IRON SUCROSE 100 MG in SODIUM CHLORIDE 0.9% 100 ML 100 ML IV SCH (08:55)
[2020-11-11] MEDS: PRAZOSIN HCL 1 MG CAP PO SCH ×2 (08:55→21:20)
[2020-11-11] MEDS: APIXABAN 5 MG TABLET PEG SCH (08:55)
[2020-11-11] MEDS: FAMOTIDINE 20 MG/2 ML VIAL IV SCH ×2 (08:55→21:20)
[2020-11-11] MEDS: HEPARIN 25,000 UNIT 1,400 UNIT in DEXTROSE 5% 250ML 250 ML IV SCH (13:00)
[2020-11-12] VITALS (26 sets, daily range): BP systolic 93–141; BP diastolic 57–122
[2020-11-12] MEDS: ENALAPRILAT IV INJ 1.25 MG/ML VIAL IV SCH ×4 (03:20→23:34)
[2020-11-12] MEDS: METOCLOPRAMIDE HCL 10 MG/2ML VIAL IV SCH ×3 (05:35→17:31)
[2020-11-12 06:35] LABS: BASOPHILS # (AUTO) 0.1 (0.0-0.1); BASOPHILS % 0.6 % (0.0-1.0); EOSINOPHILS # (AUTO) 0.5 (0.0-0.4); EOSINOPHILS % 3.9 % (0.0-6.0); HEMATOCRIT 28.8 % (38.2-49.6); HEMOGLOBIN 8.6 g/dL (14.0-18.0); LYMPHOCYTES # (AUTO) 1.7 (1.0-3.2); MEAN CORPUSCULAR HEMOGLOBIN 28.1 pg (28-32); MEAN CORPUSCULAR HGB CONC 29.9 g/dL (31-35); MEAN CORPUSCULAR VOLUME 94.1 fL (81-99); MONOCYTES % 8.3 % (4.4-11.3); NEUTROPHILS # (AUTO) 8.9 (2.1-6.9); NEUTROPHILS % 71.1 % (38.7-80.0); PLATELET COUNT 473 x10e3/uL (140-360); RED BLOOD COUNT 3.06 x10e6/uL (4.3-5.7); RED CELL DISTRIBUTION WIDTH 16.7 % (11.7-14.4)
[2020-11-12 07:26] LABS: ALANINE AMINOTRANSFERASE 18 IU/L (0-55); ALBUMIN 2.3 g/dL (3.5-5.0); ALBUMIN/GLOBULIN RATIO 0.5 (0.8-2.0); ALKALINE PHOSPHATASE 92 IU/L (40-150); ANION GAP 14.3 mmol/L (8-16); BLOOD UREA NITROGEN 19 mg/dL (7-26); BUN/CREATININE RATIO 37 (6-25); CALCIUM 8.2 mg/dL (8.4-10.2); CARBON DIOXIDE 31 mmol/L (22-29); CHLORIDE 98 mmol/L (98-107); CREATININE, SERUM 0.52 mg/dL (0.72-1.25); EST GLOMERULAR FILTRATION RATE > 60 ML/MIN (60-); GLUCOSE 120 mg/dL (74-118); POTASSIUM 3.3 mmol/L (3.5-5.1); SODIUM 140 mmol/L (136-145)
[2020-11-12] MEDS: FAMOTIDINE 20 MG/2 ML VIAL IV SCH ×2 (09:22→21:38)
[2020-11-12] MEDS: IRON SUCROSE 100 MG in SODIUM CHLORIDE 0.9% 100 ML 100 ML IV SCH (09:23)
[2020-11-12] MEDS: DOCUSATE SODIUM LIQD 100 MG/10 ML UDC NG SCH ×2 (09:23→17:31)
[2020-11-12] MEDS: PRAZOSIN HCL 1 MG CAP PO SCH ×2 (09:30→21:38)
[2020-11-12] MEDS ORDERED: SODIUM CHLORIDE 0.9% 50ML 50 ML ONE (10:22)
[2020-11-12] MEDS ORDERED: IOPAMIDOL 370 MG/ML 200 ML INFUS..BTL INJ ONE (10:22)
[2020-11-12] MEDS: HEPARIN 25,000 UNIT 1,400 UNIT in DEXTROSE 5% 250ML 250 ML IV SCH (13:00)
[2020-11-12] MEDS ORDERED: POTASSIUM CHLORIDE 20 MEQ TAB CR PO STA (13:18)
[2020-11-12] MEDS ORDERED: KCL 20 MEQ PACKET/ ORAL SOLN PO NR (14:00)
[2020-11-13] VITALS (26 sets, daily range): BP systolic 97–129; BP diastolic 56–87
[2020-11-13] MEDS: METOCLOPRAMIDE HCL 10 MG/2ML VIAL IV SCH ×5 (00:35→23:43)
[2020-11-13] MEDS: ENALAPRILAT IV INJ 1.25 MG/ML VIAL IV SCH ×4 (04:00→22:06)
[2020-11-13 06:31] LABS: BASOPHILS # (AUTO) 0.1 (0.0-0.1); BASOPHILS % 0.7 % (0.0-1.0); EOSINOPHILS # (AUTO) 0.3 (0.0-0.4); EOSINOPHILS % 3.4 % (0.0-6.0); HEMATOCRIT 28.5 % (38.2-49.6); HEMOGLOBIN 8.6 g/dL (14.0-18.0); LYMPHOCYTES % 21.4 % (18.0-39.1); MEAN CORPUSCULAR HEMOGLOBIN 28.4 pg (28-32); MEAN CORPUSCULAR HGB CONC 30.2 g/dL (31-35); MEAN CORPUSCULAR VOLUME 94.1 fL (81-99); MONOCYTES # (AUTO) 0.9 (0.2-0.8); NEUTROPHILS % 63.6 % (38.7-80.0); PLATELET COUNT 374 x10e3/uL (140-360); RED BLOOD COUNT 3.03 x10e6/uL (4.3-5.7); RED CELL DISTRIBUTION WIDTH 16.2 % (11.7-14.4)
[2020-11-13 06:57] LABS: ALANINE AMINOTRANSFERASE 16 IU/L (0-55); ALBUMIN 2.3 g/dL (3.5-5.0); ALBUMIN/GLOBULIN RATIO 0.5 (0.8-2.0); ALKALINE PHOSPHATASE 92 IU/L (40-150); ANION GAP 11.7 mmol/L (8-16); BLOOD UREA NITROGEN 19 mg/dL (7-26); BUN/CREATININE RATIO 37 (6-25); CALCIUM 8.4 mg/dL (8.4-10.2); CARBON DIOXIDE 33 mmol/L (22-29); CHLORIDE 98 mmol/L (98-107); CREATININE, SERUM 0.52 mg/dL (0.72-1.25); EST GLOMERULAR FILTRATION RATE > 60 ML/MIN (60-); GLUCOSE 107 mg/dL (74-118); POTASSIUM 3.7 mmol/L (3.5-5.1); SODIUM 139 mmol/L (136-145)
[2020-11-13] MEDS: DOCUSATE SODIUM LIQD 100 MG/10 ML UDC NG SCH (09:15)
[2020-11-13] MEDS: IRON SUCROSE 100 MG in SODIUM CHLORIDE 0.9% 100 ML 100 ML IV SCH (09:15)
[2020-11-13] MEDS: FAMOTIDINE 20 MG/2 ML VIAL IV SCH ×2 (09:15→22:03)
[2020-11-13] MEDS: PRAZOSIN HCL 1 MG CAP PO SCH ×2 (09:16→22:04)
[2020-11-13] MEDS ORDERED: SODIUM CHLORIDE 0.9% 500ML 500 ML IV SCH (11:30)
[2020-11-13] MEDS: HEPARIN 25,000 UNIT 1,400 UNIT in DEXTROSE 5% 250ML 250 ML IV SCH (13:00)
[2020-11-13 15:39] LABS: CHOL/HDL RATIO 10.4 (3.9-4.7)
[2020-11-14] VITALS (22 sets, daily range): BP systolic 95–139; BP diastolic 67–94
[2020-11-14] MEDS: ENALAPRILAT IV INJ 1.25 MG/ML VIAL IV SCH ×4 (04:00→21:31)
[2020-11-14 05:29] LABS: BASOPHILS # (AUTO) 0.1 (0.0-0.1); BASOPHILS % 0.6 % (0.0-1.0); EOSINOPHILS # (AUTO) 0.3 (0.0-0.4); EOSINOPHILS % 2.9 % (0.0-6.0); HEMATOCRIT 27.1 % (38.2-49.6); HEMOGLOBIN 8.2 g/dL (14.0-18.0); LYMPHOCYTES # (AUTO) 2.2 (1.0-3.2); LYMPHOCYTES % 21.4 % (18.0-39.1); MEAN CORPUSCULAR HEMOGLOBIN 28.6 pg (28-32); MEAN CORPUSCULAR HGB CONC 30.3 g/dL (31-35); MEAN CORPUSCULAR VOLUME 94.4 fL (81-99); MONOCYTES # (AUTO) 0.8 (0.2-0.8); MONOCYTES % 8.1 % (4.4-11.3); NEUTROPHILS # (AUTO) 6.6 (2.1-6.9); NEUTROPHILS % 65.4 % (38.7-80.0); PLATELET COUNT 416 x10e3/uL (140-360); RED BLOOD COUNT 2.87 x10e6/uL (4.3-5.7); RED CELL DISTRIBUTION WIDTH 16.3 % (11.7-14.4)
[2020-11-14] MEDS: METOCLOPRAMIDE HCL 10 MG/2ML VIAL IV SCH ×3 (06:04→17:45)
[2020-11-14 06:11] LABS: ANION GAP 10.8 mmol/L (8-16); BLOOD UREA NITROGEN 17 mg/dL (7-26); BUN/CREATININE RATIO 34 (6-25); CALCIUM 8.2 mg/dL (8.4-10.2); CARBON DIOXIDE 31 mmol/L (22-29); CHLORIDE 100 mmol/L (98-107); EST GLOMERULAR FILTRATION RATE > 60 ML/MIN (60-); GLUCOSE 111 mg/dL (74-118); POTASSIUM 3.8 mmol/L (3.5-5.1); SODIUM 138 mmol/L (136-145)
[2020-11-14] MEDS: FAMOTIDINE 20 MG/2 ML VIAL IV SCH ×2 (09:13→21:28)
[2020-11-14] MEDS: PRAZOSIN HCL 1 MG CAP PO SCH ×2 (09:14→21:30)
[2020-11-14] MEDS ORDERED: SODIUM CHLORIDE 0.9% 500ML 500 ML IV ONE (11:30)
[2020-11-14] MEDS: HEPARIN 25,000 UNIT 1,400 UNIT in DEXTROSE 5% 250ML 250 ML IV SCH (13:00)
[2020-11-15] VITALS (24 sets, daily range): BP systolic 109–143; BP diastolic 55–83
[2020-11-15 05:08] LABS: BASOPHILS # (AUTO) 0.1 (0.0-0.1); BASOPHILS % 0.6 % (0.0-1.0); EOSINOPHILS # (AUTO) 0.2 (0.0-0.4); EOSINOPHILS % 1.8 % (0.0-6.0); HEMATOCRIT 25.2 % (38.2-49.6); HEMOGLOBIN 7.9 g/dL (14.0-18.0); LYMPHOCYTES # (AUTO) 2.4 (1.0-3.2); MEAN CORPUSCULAR HEMOGLOBIN 28.8 pg (28-32); MEAN CORPUSCULAR HGB CONC 31.3 g/dL (31-35); MONOCYTES # (AUTO) 1.2 (0.2-0.8); MONOCYTES % 9.1 % (4.4-11.3); NEUTROPHILS # (AUTO) 8.6 (2.1-6.9); NEUTROPHILS % 67.9 % (38.7-80.0); PLATELET COUNT 421 x10e3/uL (140-360); RED BLOOD COUNT 2.74 x10e6/uL (4.3-5.7); RED CELL DISTRIBUTION WIDTH 16.6 % (11.7-14.4)
[2020-11-15] MEDS: ENALAPRILAT IV INJ 1.25 MG/ML VIAL IV SCH ×3 (05:11→15:12)
[2020-11-15] MEDS: METOCLOPRAMIDE HCL 10 MG/2ML VIAL IV SCH ×4 (05:12→17:07)
[2020-11-15 05:20] LABS: ALANINE AMINOTRANSFERASE 17 IU/L (0-55); ALBUMIN 2.4 g/dL (3.5-5.0); ALBUMIN/GLOBULIN RATIO 0.5 (0.8-2.0); ALKALINE PHOSPHATASE 81 IU/L (40-150); ANION GAP 15.7 mmol/L (8-16); BLOOD UREA NITROGEN 17 mg/dL (7-26); BUN/CREATININE RATIO 33 (6-25); CALCIUM 8.6 mg/dL (8.4-10.2); CARBON DIOXIDE 27 mmol/L (22-29); CHLORIDE 99 mmol/L (98-107); CREATININE, SERUM 0.52 mg/dL (0.72-1.25); EST GLOMERULAR FILTRATION RATE > 60 ML/MIN (60-); GLUCOSE 108 mg/dL (74-118); POTASSIUM 3.7 mmol/L (3.5-5.1); SODIUM 138 mmol/L (136-145)
[2020-11-15] MEDS: FAMOTIDINE 20 MG/2 ML VIAL IV SCH (08:43)
[2020-11-15] MEDS: PRAZOSIN HCL 1 MG CAP PO SCH (08:43)
[2020-11-15 12:09] LABS: INR 1.16; PROTHROMBIN TIME 15.6 seconds (11.9-14.5)
[2020-11-15 12:10] LABS: PARTIAL THROMBOPLASTIN TIME 36.2 seconds (23.8-35.5)
[2020-11-15] MEDS ORDERED: HEPARIN 25,000 UNIT 1,400 UNIT in DEXTROSE 5% 250ML 250 ML IV SCH (14:00)
[2020-11-15] MEDS ORDERED: SODIUM CHLORIDE 0.9% 100 ML ONE (19:37)
[2020-11-15] MEDS ORDERED: IOPAMIDOL 370 MG/ML 200 ML INFUS..BTL INJ ONE (19:38)
== END 2020-11-16 00:32 | DRG 4 ==
LOC: ER 18:40 → ERHOLD 21:01 → ICU 10-06 21:58 → COVIDICU 10-20 20:21
PROVIDERS: ADMIT Internal Medicine; ATTEND Internal Medicine
PROC: 3E0333Z Introduction of Anti-inflammatory into Peripheral Vein, Percutaneous Approach (ICD-10-PCS; 2020-10-04)
PROC: 02HV33Z Insertion of Infusion Device into Superior Vena Cava, Percutaneous Approach (ICD-10-PCS; 2020-10-05)
PROC: B548ZZA Ultrasonography of Superior Vena Cava, Guidance (ICD-10-PCS; 2020-10-05)
PROC: XW043E5 Introduction of Remdesivir Anti-infective into Central Vein, Percutaneous Approach, New Technology Group 5 (ICD-10-PCS; 2020-10-05)
PROC: 5A1955Z Respiratory Ventilation, Greater than 96 Consecutive Hours (ICD-10-PCS; principal; 2020-10-08)
PROC: 0BH18EZ Insertion of Endotracheal Airway into Trachea, Via Natural or Artificial Opening Endoscopic (ICD-10-PCS; 2020-10-08)
PROC: 3E043XZ Introduction of Vasopressor into Central Vein, Percutaneous Approach (ICD-10-PCS; 2020-10-08)
PROC: 02HV33Z Insertion of Infusion Device into Superior Vena Cava, Percutaneous Approach (ICD-10-PCS; 2020-10-08)
PROC: B548ZZA Ultrasonography of Superior Vena Cava, Guidance (ICD-10-PCS; 2020-10-08)
PROC: 03HY32Z Insertion of Monitoring Device into Upper Artery, Percutaneous Approach (ICD-10-PCS; 2020-10-09)
PROC: 4A133B1 Monitoring of Arterial Pressure, Peripheral, Percutaneous Approach (ICD-10-PCS; 2020-10-09)
PROC: 4A133J1 Monitoring of Arterial Pulse, Peripheral, Percutaneous Approach (ICD-10-PCS; 2020-10-09)
PROC: 30243N1 Transfusion of Nonautologous Red Blood Cells into Central Vein, Percutaneous Approach (ICD-10-PCS; 2020-10-18)
PROC: 0B113F4 Bypass Trachea to Cutaneous with Tracheostomy Device, Percutaneous Approach (ICD-10-PCS; 2020-10-26)
PROC: 0DJ08ZZ Inspection of Upper Intestinal Tract, Via Natural or Artificial Opening Endoscopic (ICD-10-PCS; 2020-11-04)
PROC: 0DH63UZ Insertion of Feeding Device into Stomach, Percutaneous Approach (ICD-10-PCS; 2020-11-04)
PROC: 02HV33Z Insertion of Infusion Device into Superior Vena Cava, Percutaneous Approach (ICD-10-PCS; 2020-11-15)
PROC: B548ZZA Ultrasonography of Superior Vena Cava, Guidance (ICD-10-PCS; 2020-11-15)
DX: A41.89 Other specified sepsis (principal); U07.1 COVID-19; R65.21 Severe sepsis with septic shock; J12.82 Pneumonia due to coronavirus disease 2019; J96.01 Acute respiratory failure with hypoxia; J69.0 Pneumonitis due to inhalation of food and vomit; I50.33 Acute on chronic diastolic (congestive) heart failure; J15.6 Pneumonia due to other Gram-negative bacteria; G93.41 Metabolic encephalopathy; I63.81 Other cerebral infarction due to occlusion or stenosis of small artery; I26.99 Other pulmonary embolism without acute cor pulmonale; I82.621 Acute embolism and thrombosis of deep veins of right upper extremity; T82.868A Thrombosis due to vascular prosthetic devices, implants and grafts, initial encounter; E87.0 Hyperosmolality and hypernatremia; E44.0 Moderate protein-calorie malnutrition; R47.01 Aphasia; J44.9 Chronic obstructive pulmonary disease, unspecified; E78.5 Hyperlipidemia, unspecified; Z88.0 Allergy status to penicillin; K20.90 Esophagitis, unspecified without bleeding; K29.70 Gastritis, unspecified, without bleeding; B96.6 Bacteroides fragilis [B. fragilis] as the cause of diseases classified elsewhere; D69.6 Thrombocytopenia, unspecified; D64.9 Anemia, unspecified; H11.89 Other specified disorders of conjunctiva; K59.00 Constipation, unspecified; E88.09 Other disorders of plasma-protein metabolism, not elsewhere classified; E87.6 Hypokalemia; D73.5 Infarction of spleen
CPT/HCPCS: 31500; 36415; 36569; 36600; 43246; 70450; 70480; 70496; 70498; 70544; 70551; 71045; 71260; 74018; 74177; 76604; 76700; 80048; 80053; 80061; 80202; 81001; 82150; 82270; 82550; 82553; 82607; 82728; 82746; 82805; 82948; 83540; 83605; 83615; 83690; 83735; 84100; 84146; 84436; 84443; 84466; 84479; 84484; 85007; 85014; 85025; 85027; 85045; 85379; 85384; 85610; 85651; 85730; 86022; 86140; 86850; 86900; 86920; 87040; 87070; 87086; 87186; 87205; 93005; 93306; 93971; 94002; 94003; 94640; 94664; 95812; 96361; 97139; 99251; 99285; J0330; J0456; J0696; J1100; J1650; J1756; J1940; J2185; J2250; J2405; J2543; J2765; J3010; J3370; J3430; J3480; J7030; J7040; J7050; J7121; P9016; P9047; Q9967; U0002

== ENCOUNTER 2021-03-30 22:49 | Emergency (ER) | payer MEDICARE ==
[~2021-03-30] VITALS: Ht 177.8 cm; Wt 82.6 kg
[~2021-03-30 22:49] MED LIST changes: -ETOMIDATE 2 MG/ML 10 ML INJ IV ONE; -MIDAZOLAM HCL 2 MG/2 ML VIAL ONE; +MONTELUKAST SOD10 MG PO; +ROSUVASTATIN CA20 MG PO; -SUCCINYLCHOLINE CHLORIDE 20 MG/ML 10ML VIAL ONE; +SYMBICORT 16010.2 GM; -VECURONIUM BROMIDE FOR INJ 20 MG VIAL ONE; -WATER STERILE 10 ML VIAL ONE
[2021-03-30] MEDS ORDERED: KETOROLAC TROMETHAMINE 30 MG/ML VIAL IV STA (22:58)
[2021-03-30] MEDS ORDERED: ASPIRIN 81 MG CHEW TAB PO ONE (23:00)
[2021-03-30 23:29] LABS: BASOPHILS % 0.4 % (0.0-1.0); EOSINOPHILS # (AUTO) 0.3 (0.0-0.4); EOSINOPHILS % 2.4 % (0.0-6.0); HEMATOCRIT 38.2 % (38.2-49.6); HEMOGLOBIN 12.4 g/dL (14.0-18.0); LYMPHOCYTES # (AUTO) 2.1 (1.0-3.2); LYMPHOCYTES % 19.3 % (18.0-39.1); MEAN CORPUSCULAR HEMOGLOBIN 29.6 pg (28-32); MEAN CORPUSCULAR HGB CONC 32.5 g/dL (31-35); MEAN CORPUSCULAR VOLUME 91.2 fL (81-99); MONOCYTES # (AUTO) 1.4 (0.2-0.8); MONOCYTES % 12.5 % (4.4-11.3); NEUTROPHILS # (AUTO) 7.2 (2.1-6.9); NEUTROPHILS % 64.9 % (38.7-80.0); PLATELET COUNT 234 x10e3/uL (140-360); RED BLOOD COUNT 4.19 x10e6/uL (4.3-5.7); RED CELL DISTRIBUTION WIDTH 14.4 % (11.7-14.4)
[2021-03-30 23:48] LABS: ALANINE AMINOTRANSFERASE 13 IU/L (0-55); ALBUMIN 3.7 g/dL (3.5-5.0); ALBUMIN/GLOBULIN RATIO 1.1 (0.8-2.0); ALKALINE PHOSPHATASE 58 IU/L (40-150); ANION GAP 11.9 mmol/L (8-16); BLOOD UREA NITROGEN 22 mg/dL (7-26); BUN/CREATININE RATIO 27 (6-25); CALCIUM 8.6 mg/dL (8.4-10.2); CARBON DIOXIDE 28 mmol/L (22-29); CHLORIDE 103 mmol/L (98-107); CREATINE KINASE 56 IU/L (30-200); CREATININE, SERUM 0.81 mg/dL (0.72-1.25); EST GLOMERULAR FILTRATION RATE 95 ML/MIN (60-); GLUCOSE 108 mg/dL (74-118); POTASSIUM 3.9 mmol/L (3.5-5.1); SODIUM 139 mmol/L (136-145)
== END 2021-03-31 01:15 | disposition home or self-care (01) ==
LOC: ER 22:55
DX: R07.89 Other chest pain (principal); R05 Cough; J18.9 Pneumonia, unspecified organism; J90 Pleural effusion, not elsewhere classified; R94.31 Abnormal electrocardiogram [ECG] [EKG]; E78.5 Hyperlipidemia, unspecified; J45.909 Unspecified asthma, uncomplicated; Z86.73 Personal history of transient ischemic attack (TIA), and cerebral infarction without residual deficits
CPT/HCPCS: 36415; 71045; 80053; 82550; 82553; 83880; 84484; 85025; 85379; 93005; 99284

== ENCOUNTER 2021-08-25 18:01 | Emergency (ER) | payer MEDICARE ==
[~2021-08-25] VITALS: Ht 177.8 cm; Wt 90.7 kg
[2021-08-25] MEDS ORDERED: BACTRIM DS TAB1 EACH PO (18:48)
[2021-08-25] MEDS ORDERED: VALTREX1000 MG PO (18:48)
== END 2021-08-25 18:56 | disposition home or self-care (01) ==
LOC: FSED 18:15
DX: B02.9 Zoster without complications (principal); L03.113 Cellulitis of right upper limb; Z86.16 Personal history of COVID-19; Z86.718 Personal history of other venous thrombosis and embolism
CPT/HCPCS: 99283

== ENCOUNTER 2021-09-23 15:51 | Observation (INO) | payer MEDICARE ==
[~2021-09-23] VITALS: Ht 177.8 cm; Wt 90.7 kg
[~2021-09-23 15:51] MED LIST changes: +VALTREX1000 MG PO
[2021-09-23 16:40] LABS: BASOPHILS % 0.5 % (0.0-1.0); EOSINOPHILS % 0.5 % (0.0-6.0); HEMATOCRIT 39.6 % (38.2-49.6); HEMOGLOBIN 12.8 g/dL (14.0-18.0); LYMPHOCYTES # (AUTO) 1.3 (1.0-3.2); LYMPHOCYTES % 16.2 % (18.0-39.1); MEAN CORPUSCULAR HEMOGLOBIN 31.2 pg (28-32); MEAN CORPUSCULAR HGB CONC 32.3 g/dL (31-35); MEAN CORPUSCULAR VOLUME 96.6 fL (81-99); MONOCYTES # (AUTO) 1.2 (0.2-0.8); MONOCYTES % 14.1 % (4.4-11.3); NEUTROPHILS # (AUTO) 5.6 (2.1-6.9); NEUTROPHILS % 68.3 % (38.7-80.0); PLATELET COUNT 218 x10e3/uL (140-360); RED CELL DISTRIBUTION WIDTH 13.3 % (11.7-14.4)
[2021-09-23 16:54] LABS: INR 0.99; PROTHROMBIN TIME 13.9 seconds (11.9-14.5)
[2021-09-23 16:55] LABS: PARTIAL THROMBOPLASTIN TIME 26.5 seconds (23.8-35.5)
[2021-09-23 16:57] LABS: ALBUMIN 4.1 g/dL (3.5-5.0); ALBUMIN/GLOBULIN RATIO 1.2 (0.8-2.0); ANION GAP 14.9 mmol/L (8-16); CALCIUM 8.5 mg/dL (8.4-10.2); CREATININE, SERUM 0.99 mg/dL (0.72-1.25); POTASSIUM 3.9 mmol/L (3.5-5.1)
[2021-09-23 17:04] LABS: CREATINE KINASE MB 0.9 ng/mL (0-5.0)
[2021-09-23] MEDS ORDERED: CASIRIVIMAB/IMDEVIMAB 10 ML in SODIUM CHLORIDE 0.9% 100 ML IV ONE (17:30)
[2021-09-23] MEDS ORDERED: ONDANSETRON HCL INJ 2MG/ML 2ML 2 MG/ML VIAL IV PRN (17:45)
[2021-09-23] MEDS ORDERED: ACETAMINOPHEN 325 MG TAB PO PRN ×2 (17:45→18:00)
[2021-09-23] MEDS ORDERED: ACETAMINOPHEN 325 MG TAB PO ONE (18:00)
[2021-09-23] MEDS ORDERED: ALBUTEROL SULFATE HFA 8GM INHALATION AEROSOL INH PRN (18:00)
[2021-09-23] MEDS ORDERED: CEFTRIAXONE 2 GM in SODIUM CHLORIDE 0.9% 100 ML IV SCH (19:00)
[2021-09-23] MEDS: BUDESONIDE/FORMOTEROL 160/4.5MCG INHALER INH SCH (19:00)
[2021-09-23] MEDS: DEXAMETHASONE SOD PHOS 10 MG/1 ML VIAL IV SCH (19:35)
[2021-09-23] MEDS: SODIUM CHLORIDE 0.9% 1000ML 1,000 ML IV SCH ×2 (19:35→22:09)
[2021-09-23 20:00] VITALS: BP 125/71
[2021-09-23 20:36] VITALS: BP 125/71
[2021-09-23 21:09] VITALS: BP 125/71
[2021-09-23] MEDS ORDERED: CRESTOR10 MG PO (23:04)
[2021-09-23] MEDS ORDERED: MONTELUKAST SOD10 MG PO (23:04)
[2021-09-23] MEDS ORDERED: MELATONIN3 MG PO (23:04)
[2021-09-23] MEDS ORDERED: NEURONTIN300 MG PO (23:04)
[2021-09-23] MEDS ORDERED: LEXAPRO20 MG PO (23:04)
[2021-09-23] MEDS ORDERED: BACLOFEN10 MG PO (23:04)
[2021-09-24] VITALS: BP 123/73
[2021-09-24 04:00] VITALS: BP 122/76
[2021-09-24 08:07] VITALS: BP 126/81
[2021-09-24 08:43] LABS: BASOPHILS % 0.2 % (0.0-1.0); HEMOGLOBIN 13.1 g/dL (14.0-18.0); LYMPHOCYTES % 16.4 % (18.0-39.1); MEAN CORPUSCULAR HEMOGLOBIN 31.2 pg (28-32); MEAN CORPUSCULAR HGB CONC 32.8 g/dL (31-35); MEAN CORPUSCULAR VOLUME 95.2 fL (81-99); MONOCYTES # (AUTO) 0.5 (0.2-0.8); MONOCYTES % 7.3 % (4.4-11.3); NEUTROPHILS # (AUTO) 4.7 (2.1-6.9); NEUTROPHILS % 75.9 % (38.7-80.0); PLATELET COUNT 213 x10e3/uL (140-360); RED CELL DISTRIBUTION WIDTH 13.3 % (11.7-14.4)
[2021-09-24 08:48] VITALS: BP 126/81
[2021-09-24 09:00] VITALS: BP 126/81
[2021-09-24] MEDS ORDERED: MONTELUKAST SODIUM 10 MG TAB PO SCH (09:00)
[2021-09-24] MEDS ORDERED: CRESTOR 10MG PO SCH (09:00)
[2021-09-24] MEDS ORDERED: ENOXAPARIN SOD INJ 40 MG/0.4 ML SYR SC SCH (09:00)
[2021-09-24] MEDS ORDERED: ZINC SULFATE 50 MG CAP PO SCH (09:00)
[2021-09-24] MEDS ORDERED: ENOXAPARIN INJ 80 MG/0.8 ML SYR SC SCH (09:00)
[2021-09-24] MEDS ORDERED: ASCORBIC ACID 500 MG TAB PO SCH (09:00)
[2021-09-24 09:29] LABS: ALBUMIN 3.7 g/dL (3.5-5.0); ALBUMIN/GLOBULIN RATIO 1.1 (0.8-2.0); ANION GAP 16.1 mmol/L (8-16); CALCIUM 8.4 mg/dL (8.4-10.2); CREATININE, SERUM 0.79 mg/dL (0.72-1.25); POTASSIUM 4.1 mmol/L (3.5-5.1)
[2021-09-24] MEDS: BUDESONIDE/FORMOTEROL 160/4.5MCG INHALER INH SCH (09:30)
[2021-09-24] MEDS: DEXAMETHASONE SOD PHOS 10 MG/1 ML VIAL IV SCH (09:52)
[2021-09-24] MEDS: SODIUM CHLORIDE 0.9% 1000ML 1,000 ML IV SCH (09:52)
[2021-09-24 11:32] VITALS: BP 126/81
== END 2021-09-24 15:00 | disposition home or self-care (01) ==
LOC: ER 17:06 → ERHOLD 17:46 → MED/SURG2 18:39
PROVIDERS: ADMIT Internal Medicine; ATTEND Internal Medicine
DX: U07.1 COVID-19 (principal); I10 Essential (primary) hypertension; E78.00 Pure hypercholesterolemia, unspecified; Z86.718 Personal history of other venous thrombosis and embolism; Z79.01 Long term (current) use of anticoagulants; I69.351 Hemiplegia and hemiparesis following cerebral infarction affecting right dominant side
CPT/HCPCS: 36415 ×2; 70450; 71045; 80053 ×2; 82550; 82553; 83735; 84484; 85025 ×2; 85610; 85730; 87040; 92526; 92610; 93005; 94799 ×2; 99284; G0378 ×2; J0456; J0696; J1100 ×2; J1650; J7030 ×2; J7050 ×2; U0002

== ENCOUNTER 2023-03-26 20:16 | Inpatient (IN) | payer MEDICARE ==
[~2023-03-26] VITALS: Ht 177.8 cm; Wt 90.7 kg
[~2023-03-26 20:16] MED LIST changes: +BACLOFEN10 MG PO; +CRESTOR10 MG PO; +LEXAPRO20 MG PO; +MELATONIN3 MG PO; +NEURONTIN300 MG PO
[2023-03-26 21:09] LABS: BASOPHILS # (AUTO) 0.1 (0.0-0.1); BASOPHILS % 0.4 % (0.0-1.0); EOSINOPHILS # (AUTO) 0.1 (0.0-0.4); EOSINOPHILS % 0.5 % (0.0-6.0); HEMATOCRIT 28.8 % (38.2-49.6); HEMOGLOBIN 12.5 g/dL (14.0-18.0); LYMPHOCYTES # (AUTO) 1.7 (1.0-3.2); MEAN CORPUSCULAR HEMOGLOBIN 46.3 pg (28-32); MEAN CORPUSCULAR HGB CONC 43.4 g/dL (31-35); MEAN CORPUSCULAR VOLUME 106.7 fL (81-99); MONOCYTES # (AUTO) 1.5 (0.2-0.8); MONOCYTES % 10.8 % (4.4-11.3); NEUTROPHILS % 74.7 % (38.7-80.0); PLATELET COUNT 316 x10e3/uL (140-360)
[2023-03-26 21:17] LABS: ALBUMIN 3.5 g/dL (3.5-5.0); ALBUMIN/GLOBULIN RATIO 0.9 (0.8-2.0); ANION GAP 13.9 mmol/L (8-16); CALCIUM 8.9 mg/dL (8.4-10.2); CREATININE, SERUM 0.95 mg/dL (0.72-1.25); POTASSIUM 3.9 mmol/L (3.5-5.1)
[2023-03-26] MEDS ORDERED: LEVOFLOXACIN750 MG PO (22:38)
[2023-03-26] MEDS ORDERED: ONDANSETRON HCL INJ 2MG/ML 2ML 2 MG/ML VIAL IV STA (23:14)
[2023-03-26] MEDS: ALBUTEROL/IPRATROPIUM 3 ML NEB NEB SCH (23:37)
[2023-03-26] MEDS ORDERED: ONDANSETRON HCL INJ 2MG/ML 2ML 2 MG/ML VIAL IV PRN (23:45)
[2023-03-26] MEDS ORDERED: SODIUM CHLORIDE 0.9% 1000ML 1,000 ML IV SCH (23:45)
[2023-03-27] VITALS (8 sets, daily range): BP systolic 109–132; BP diastolic 63–77; PULSE 70–77; RESP 18–22; TEMP 98.8–99.2; O2SAT 97–98
[2023-03-27] MEDS: LEVOFLOXACIN 750MG/D5W 150ML 150 ML IV SCH (00:04)
[2023-03-27] MEDS ORDERED: MECLIZINE HCL 12.5 MG TAB PO ONE (03:30)
[2023-03-27 07:09] LABS: ALBUMIN 3.2 g/dL (3.5-5.0); ANION GAP 12.1 mmol/L (8-16); CALCIUM 8.6 mg/dL (8.4-10.2); CREATININE, SERUM 0.83 mg/dL (0.72-1.25); POTASSIUM 4.1 mmol/L (3.5-5.1)
[2023-03-27 07:10] LABS: ALBUMIN/GLOBULIN RATIO 0.9 (0.8-2.0)
[2023-03-27 07:29] LABS: BASOPHILS # (AUTO) 0.1 (0.0-0.1); BASOPHILS % 0.5 % (0.0-1.0); EOSINOPHILS # (AUTO) 0.1 (0.0-0.4); HEMATOCRIT 36.9 % (38.2-49.6); HEMOGLOBIN 12.2 g/dL (14.0-18.0); LYMPHOCYTES # (AUTO) 1.5 (1.0-3.2); LYMPHOCYTES % 11.9 % (18.0-39.1); MEAN CORPUSCULAR HEMOGLOBIN 33.8 pg (28-32); MEAN CORPUSCULAR HGB CONC 33.1 g/dL (31-35); MEAN CORPUSCULAR VOLUME 102.2 fL (81-99); MONOCYTES # (AUTO) 1.3 (0.2-0.8); MONOCYTES % 10.4 % (4.4-11.3); NEUTROPHILS # (AUTO) 9.4 (2.1-6.9); NEUTROPHILS % 75.3 % (38.7-80.0); PLATELET COUNT 289 x10e3/uL (140-360); RED BLOOD COUNT 3.61 x10e6/uL (4.3-5.7); RED CELL DISTRIBUTION WIDTH 15.5 % (11.7-14.4)
[2023-03-27] MEDS ORDERED: ALBUTEROL SULFATE HFA 8GM INHALATION AEROSOL INH PRN (11:45)
[2023-03-27] MEDS: ALBUTEROL/IPRATROPIUM 3 ML NEB NEB SCH ×2 (13:15→19:40)
[2023-03-27] MEDS: GUAIFENESIN 200 MG/10 ML UDC PO PRN ×2 (15:43→21:53)
[2023-03-27] MEDS: ACETAMINOPHEN 325 MG TAB PO PRN (15:44)
[2023-03-27] MEDS: COLESEVELAM HCL 625 MG TAB PO SCH (16:30)
[2023-03-27] MEDS: BUDESONIDE/FORMOTEROL 160/4.5MCG INHALER INH SCH (19:40)
[2023-03-27] MEDS: MONTELUKAST SODIUM 10 MG TAB PO SCH (21:46)
[2023-03-27] MEDS: ESCITALOPRAM OXALATE 10 MG TAB PO SCH (21:47)
[2023-03-28] VITALS (14 sets, daily range): BP systolic 102–119; BP diastolic 64–94; PULSE 61–84; RESP 16–22; TEMP 98–99.6; O2SAT 94–100
[2023-03-28] MEDS: LEVOFLOXACIN 750MG/D5W 150ML 150 ML IV SCH (00:09)
[2023-03-28] MEDS: ALBUTEROL/IPRATROPIUM 3 ML NEB NEB SCH ×6 (03:50→22:00)
[2023-03-28] MEDS: GUAIFENESIN 200 MG/10 ML UDC PO PRN (05:53)
[2023-03-28] MEDS: ACETAMINOPHEN 325 MG TAB PO PRN (05:53)
[2023-03-28 06:17] LABS: ANION GAP 15.8 mmol/L (8-16); CALCIUM 8.8 mg/dL (8.4-10.2); CREATININE, SERUM 0.91 mg/dL (0.72-1.25); POTASSIUM 3.8 mmol/L (3.5-5.1)
[2023-03-28] MEDS: BUDESONIDE/FORMOTEROL 160/4.5MCG INHALER INH SCH ×2 (06:27→19:00)
[2023-03-28 06:29] LABS: THYROID STIMULATING HORMONE 1.14 uIU/mL (0.350-4.940)
[2023-03-28 06:59] LABS: BASOPHILS # (AUTO) 0.1 (0.0-0.1); BASOPHILS % 0.5 % (0.0-1.0); EOSINOPHILS # (AUTO) 0.2 (0.0-0.4); HEMATOCRIT 36.1 % (38.2-49.6); HEMOGLOBIN 12.6 g/dL (14.0-18.0); LYMPHOCYTES # (AUTO) 1.6 (1.0-3.2); LYMPHOCYTES % 14.1 % (18.0-39.1); MEAN CORPUSCULAR HEMOGLOBIN 36.2 pg (28-32); MEAN CORPUSCULAR HGB CONC 34.9 g/dL (31-35); MEAN CORPUSCULAR VOLUME 103.7 fL (81-99); MONOCYTES # (AUTO) 1.2 (0.2-0.8); MONOCYTES % 10.4 % (4.4-11.3); NEUTROPHILS # (AUTO) 8.1 (2.1-6.9); NEUTROPHILS % 72.3 % (38.7-80.0); PLATELET COUNT 291 x10e3/uL (140-360); RED BLOOD COUNT 3.48 x10e6/uL (4.3-5.7); RED CELL DISTRIBUTION WIDTH 18.1 % (11.7-14.4)
[2023-03-28] MEDS: COLESEVELAM HCL 625 MG TAB PO SCH ×3 (09:10→16:51)
[2023-03-28] MEDS: LAMOTRIGINE 100 MG TAB PO SCH (16:51)
[2023-03-28] MEDS ORDERED: ENOXAPARIN 30 MG/0.3 ML SYR SC SCH (17:00)
[2023-03-28] MEDS ORDERED: ENOXAPARIN SOD INJ 40 MG/0.4 ML SYR SC SCH (17:00)
[2023-03-28] MEDS: MONTELUKAST SODIUM 10 MG TAB PO SCH (20:54)
[2023-03-28] MEDS: ESCITALOPRAM OXALATE 10 MG TAB PO SCH (20:55)
[2023-03-28] MEDS ORDERED: GABAPENTIN 300 MG CAP PO SCH (21:00)
[2023-03-28] MEDS ORDERED: SIMVASTATIN 20 MG TAB PO SCH (21:00)
[2023-03-28] MEDS ORDERED: LEVOFLOXACIN 750MG/D5W 150ML 150 ML IV SCH (21:00)
[2023-03-28] MEDS ORDERED: QUETIAPINE FUMARATE 25 MG TAB PO SCH (21:00)
[2023-03-29] VITALS (8 sets, daily range): BP systolic 103–130; BP diastolic 60–64; PULSE 62–97; RESP 16–20; TEMP 97.8–98.4; O2SAT 94–97
[2023-03-29] MEDS: ALBUTEROL/IPRATROPIUM 3 ML NEB NEB SCH ×2 (03:30→07:18)
[2023-03-29] MEDS: BUDESONIDE/FORMOTEROL 160/4.5MCG INHALER INH SCH (07:18)
[2023-03-29] MEDS: COLESEVELAM HCL 625 MG TAB PO SCH (08:10)
[2023-03-29] MEDS: LAMOTRIGINE 100 MG TAB PO SCH (08:11)
[2023-03-29] MEDS: GUAIFENESIN 200 MG/10 ML UDC PO PRN (08:17)
[2023-03-29 08:57] LABS: BASOPHILS # (AUTO) 0.1 (0.0-0.1); BASOPHILS % 0.4 % (0.0-1.0); EOSINOPHILS # (AUTO) 0.4 (0.0-0.4); EOSINOPHILS % 3.8 % (0.0-6.0); LYMPHOCYTES # (AUTO) 1.9 (1.0-3.2); MEAN CORPUSCULAR HGB CONC 35.3 g/dL (31-35); MEAN CORPUSCULAR VOLUME 107.6 fL (81-99); MONOCYTES # (AUTO) 1.3 (0.2-0.8); MONOCYTES % 11.3 % (4.4-11.3); NEUTROPHILS # (AUTO) 7.4 (2.1-6.9); PLATELET COUNT 319 x10e3/uL (140-360); RED BLOOD COUNT 3.16 x10e6/uL (4.3-5.7); RED CELL DISTRIBUTION WIDTH 19.7 % (11.7-14.4)
[2023-03-29] MEDS ORDERED: ALBUTEROL1.25 MG/3 NEB (11:00)
[2023-03-29] MEDS ORDERED: LEVOFLOXACIN750 MG PO (11:00)
[2023-03-29] MEDS ORDERED: LEVOFLOXACIN 500 MG TAB PO SCH (21:00)
== END 2023-03-29 11:50 | disposition home or self-care (01) | DRG 195 ==
LOC: ER 20:35 → ERHOLD 23:38 → MED/SURG3 03-27 15:29 → OBSVTOIN 03-28 10:08
PROVIDERS: ADMIT Internal Medicine; ATTEND Internal Medicine
DX: J18.9 Pneumonia, unspecified organism (principal); J45.909 Unspecified asthma, uncomplicated; E78.00 Pure hypercholesterolemia, unspecified; M19.90 Unspecified osteoarthritis, unspecified site; F03.90 Unspecified dementia, unspecified severity, without behavioral disturbance, psychotic disturbance, mood disturbance, and anxiety; U09.9 Post COVID-19 condition, unspecified; R53.1 Weakness; Z88.0 Allergy status to penicillin; Z86.73 Personal history of transient ischemic attack (TIA), and cerebral infarction without residual deficits; Z20.822 Contact with and (suspected) exposure to COVID-19; Z79.899 Other long term (current) drug therapy
CPT/HCPCS: 36415; 70450; 71045; 80048; 80053; 83605; 84443; 85025; 87040; 94640; 94664; 94799; 99284; G0378; J1650; J2405; J7030

== ENCOUNTER 2023-04-11 15:01 | Emergency (ER) | payer MEDICARE ==
[~2023-04-11] VITALS: Ht 177.8 cm; Wt 90.7 kg
[~2023-04-11 15:01] MED LIST changes: +ALBUTEROL1.25 MG/3 NEB; +LEVOFLOXACIN750 MG PO
[2023-04-11 15:02] VITALS: O2SAT 100
[2023-04-11] MEDS ORDERED: ONDANSETRON HCL INJ 2MG/ML 2ML 2 MG/ML VIAL IV STA (15:53)
[2023-04-11] MEDS ORDERED: Morphine 4mg INJECTION 4 MG/ML INJ IV STA (15:53)
[2023-04-11] MEDS ORDERED: SODIUM CHLORIDE 0.9% 1000ML 1,000 ML IV STA (15:53)
[2023-04-11] MEDS ORDERED: KETOROLAC TROMETHAMINE 30 MG/ML VIAL IV STA (15:53)
[2023-04-11 17:17] LABS: BASOPHILS # (AUTO) 0.1 (0.0-0.1); BASOPHILS % 0.8 % (0.0-1.0); EOSINOPHILS # (AUTO) 0.1 (0.0-0.4); EOSINOPHILS % 1.5 % (0.0-6.0); HEMATOCRIT 33.7 % (38.2-49.6); HEMOGLOBIN 11.5 g/dL (14.0-18.0); LYMPHOCYTES # (AUTO) 1.1 (1.0-3.2); LYMPHOCYTES % 13.1 % (18.0-39.1); MEAN CORPUSCULAR HEMOGLOBIN 36.2 pg (28-32); MEAN CORPUSCULAR HGB CONC 34.1 g/dL (31-35); MONOCYTES # (AUTO) 0.7 (0.2-0.8); NEUTROPHILS # (AUTO) 6.6 (2.1-6.9); NEUTROPHILS % 76.3 % (38.7-80.0); PLATELET COUNT 265 x10e3/uL (140-360); RED BLOOD COUNT 3.18 x10e6/uL (4.3-5.7); RED CELL DISTRIBUTION WIDTH 17.9 % (11.7-14.4)
[2023-04-11 17:38] LABS: ALBUMIN 3.6 g/dL (3.5-5.0); ALBUMIN/GLOBULIN RATIO 0.9 (0.8-2.0); ANION GAP 13.2 mmol/L (8-16); CALCIUM 9.1 mg/dL (8.4-10.2); CREATININE, SERUM 0.96 mg/dL (0.72-1.25); POTASSIUM 4.2 mmol/L (3.5-5.1)
[2023-04-11 17:54] LABS: CLARITY,URINE HAZY (CLEAR); COLOR,URINE YELLOW (YELLOW)
[2023-04-11 17:55] LABS: KETONES,URINE NEGATIVE (NEGATIVE); LEUKOCYTE ESTERASE ,URINE NEGATIVE (NEGATIVE); NITRITE,URINE NEGATIVE (NEGATIVE); PROTEIN,URINE DIPSTICK NEGATIVE (NEGATIVE); URINE UROBILINOGEN 0.2 mg/dL (0.2 - 1)
[2023-04-11] MEDS ORDERED: IOPAMIDOL 370 MG/ML 100 ML INFUS..BTL INJ ONE (18:02)
[2023-04-11 18:11] LABS: RBC,URINE >50 /HPF (0-5); WBC,URINE (MAN) 0-5 /HPF (0-5)
[2023-04-11 18:12] LABS: BACTERIA,URINE RARE /HPF
== END 2023-04-11 20:25 | disposition home or self-care (01) ==
LOC: ER 16:26
DX: R10.31 Right lower quadrant pain (principal); R91.1 Solitary pulmonary nodule; N20.1 Calculus of ureter; J44.9 Chronic obstructive pulmonary disease, unspecified; E78.5 Hyperlipidemia, unspecified; Z79.899 Other long term (current) drug therapy
CPT/HCPCS: 36415; 71250; 74177; 80053; 81001; 83690; 85025; 99283; J1885; J2270; J2405; J7030; Q9967